=== PATIENT | female | born 2000 | race Caucasian/White ===

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

== ENCOUNTER 2021-01-27 00:08 | Outpatient (CLI) | payer MEDICAID | END 2021-01-27 00:09 | disposition critical access hospital (66) | LOC: EMS 00:08 | DX: R44.9 Unspecified symptoms and signs involving general sensations and perceptions (principal) | CPT/HCPCS: A0425; A0429 ==

== ENCOUNTER 2021-01-27 00:31 | Emergency (ER) | payer MEDICAID ==
[2021-01-27] MEDS ORDERED: ONDANSETRON ODT 4 MG TABLET TL STA (01:21)
[2021-01-27] MEDS ORDERED: LORazepam 1 MG TABLET PO STA (01:22)
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
[2021-01-27 04:48] VITALS: BP 146/99
== END 2021-01-27 02:07 | disposition home or self-care (01) ==
LOC: EDUNIT# → ED 00:31
DX: F43.0 Acute stress reaction (principal)
CPT/HCPCS: 99283; J8499; Q0162

== ENCOUNTER 2021-03-31 17:04 | Outpatient (CLI) | payer MEDICAID | END 2021-03-31 17:05 | disposition critical access hospital (66) | LOC: EMS 17:04 | DX: S20.313A Abrasion of bilateral front wall of thorax, initial encounter (principal); R10.817 Generalized abdominal tenderness; V57.6XXA Passenger in pick-up truck or van injured in collision with fixed or stationary object in traffic accident, initial encounter; Y92.410 Unspecified street and highway as the place of occurrence of the external cause | CPT/HCPCS: A0425; A0429; A0999 ==

== ENCOUNTER 2021-03-31 17:15 | Emergency (ER) | payer MEDICAID ==
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
[2021-03-31 17:32] LABS: BASOPHILS # (AUTO) 0.1 10^3/uL (0.0-0.1); BASOPHILS % (AUTO) 0.3 %; EOSINOPHILS # (AUTO) 0.1 10^3/uL (0.0-0.7); EOSINOPHILS % (AUTO) 0.4 %; HCT - HEMATOCRIT 45.1 % (37.0-47.0); HGB - HEMOGLOBIN 14.8 g/dL (12.0-16.0); LYMPHOCYTES # (AUTO) 2.9 10^3/uL (1.5-3.5); MEAN CORPUSCULAR HEMOGLOBIN 28.7 pg (27.0-31.0); MEAN CORPUSCULAR HGB CONC 32.8 g/dL (32.0-36.0); MEAN CORPUSCULAR VOLUME 87.4 fL (81.0-99.0); MONOCYTES # (AUTO) 0.8 10^3/uL (0.0-1.0); MONOCYTES % (AUTO) 5.1 %; NEUTROPHILS # (AUTO) 11.4 10^3/uL (1.5-6.6); NEUTROPHILS % (AUTO) 74.6 %; PLT - PLATELET COUNT 347 10^3/uL (130-450); RED BLOOD COUNT 5.16 10^6/uL (4.20-5.40); RED CELL DISTRIBUTION WIDTH 13.4 % (12.0-15.0); WHITE BLOOD COUNT 15.2 x10^3/uL (4.8-10.8)
[2021-03-31 17:38] LABS: INR 1.3 (0.8-1.2); PT - PROTHROMBIN TIME 14.1 secs (9.9-12.6)
[2021-03-31 17:42] LABS: ALBUMIN 4.5 g/dL (3.2-5.5); ALBUMIN/GLOBULIN RATIO 1.1 (1.0-2.2); ALKALINE PHOSPHATASE 93 IU/L (42-121); ALT ALANINE AMINOTRANSFERASE 21 IU/L (10-60); AST ASPARTATE AMINOTRANSFERASE 22 IU/L (10-42); BILIRUBIN,TOTAL 0.4 mg/dL (0.2-1.0); BUN - BLOOD UREA NITROGEN 18 mg/dL (6-20); CALCIUM 9.8 mg/dL (8.5-10.3); CARBON DIOXIDE - CO2 25 mmol/L (21-32); CHLORIDE 105 mmol/L (101-111); CREATININE 0.8 mg/dL (0.4-1.0); ETOH - ETHANOL < 5.0 mg/dL; GFR - MDRD 91 (>89); GLUCOSE 104 mg/dL (70-100); LIPASE 29 U/L (22-51); POTASSIUM 4.2 mmol/L (3.5-5.0); SODIUM 140 mmol/L (135-145); TOTAL PROTEIN 8.7 g/dL (6.7-8.2)
[2021-03-31 17:45] LABS: PARTIAL THROMBOPLASTIN TIME 33.2 secs (24.9-33.3)
[2021-03-31] MEDS ORDERED: IOPAMIDOL-300 100 ML VIAL ONE (18:22)
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
[2021-03-31] MEDS ORDERED: IOPAMIDOL-300 100 ML VIAL IVP ONE (18:59)
[2021-03-31 19:20] VITALS: BP 142/91
== END 2021-03-31 19:20 | disposition home or self-care (01) ==
LOC: EDUNIT# → ED 17:15
DX: S20.319A Abrasion of unspecified front wall of thorax, initial encounter (principal); V47.6XXA Car passenger injured in collision with fixed or stationary object in traffic accident, initial encounter; Y93.89 Activity, other specified; Y92.410 Unspecified street and highway as the place of occurrence of the external cause
CPT/HCPCS: 36415; 70450; 71260; 72125; 74177; 80053; 80320; 83690; 85025; 85610; 85730; 99282; 99284; Q9967

== ENCOUNTER 2021-11-18 18:35 | Emergency (ER) | payer MEDICAID ==
[2021-11-18] MEDS ORDERED: SODIUM CHLORIDE 0.9% 1,000 ML IV STA (18:46)
[2021-11-18] MEDS ORDERED: ONDANSETRON 4 MG/2 ML VIAL IVP STA (18:46)
[2021-11-18] MEDS ORDERED: KETOROLAC 15 MG/ML VIAL IVP STA (18:46)
[2021-11-18] MEDS ORDERED: MOLNUPIRAVIR PREPACK PO STA (19:06)
--- NOTE | 2021-11-18 19:07 | ED Physician Documentation ---
History of Present Illness - Stated complaint Stated Complaint: C+,LIGHTHEADED,SHAKING - Chief complaint Chief Complaint: General - History obtained from History obtained from: Patient - Additonal information Additional information: 21-year-old woman not vaccinated against COVID became sick about 3 days ago after an exposure at work, she works at [employer]. She has a history of cerebral palsy and morbid obesity. No chance of . She is been feeling weak and lightheaded with some nausea but no vomiting. Review of Systems Constitutional: reports: Fever, Chills, Myalgias, Fatigue Nose: reports: Rhinorrhea / runny nose Throat: denies: Sore throat Respiratory: denies: Dyspnea, Cough PD PAST MEDICAL HISTORY - Past Medical History Cardiovascular: None Respiratory: None Neuro: Other Endocrine/Autoimmune: None Psych: None Musculoskeletal: None - Past Surgical History Past Surgical History: Yes - Present Medications Home Medications: Ambulatory Orders Medication Instructions Recorded Confirmed Ibuprofen [Motrin] 800 mg PO Q8H PRN #14 tablet 11/18/21 Ondansetron Odt [Zofran] 4 mg TL Q6H PRN #10 tablet 11/18/21 - Allergies Allergies/Adverse Reactions: Allergies Allergy/AdvReac Type Severity Reaction Status Date / Time No Known Drug Allergies Allergy Verified 11/18/21 18:43 - Social History Does the pt smoke?: No Smoking Status: Never smoker Does the pt drink ETOH?: No Does the pt have substance abuse?: No - Immunizations Immunizations are current?: Yes - POLST Patient has POLST: No PD ED PE NORMAL - Vitals Vital signs reviewed: Yes (Mild resting tachycardia, hypertension) - General General: Alert and oriented X 3, No acute distress - Respiratory Respiratory: No respiratory distress - Derm Derm: Normal color, Warm and dry - Neuro Neuro: Alert and oriented X 3, Normal speech Results - Vitals Vitals: Vital Signs - 24 hr 11/18/21 11/18/21 18:39 19:20 Temperature 36.9 C Heart Rate 110 H 84 Respiratory 20 20 Rate Blood Pressure 179/118 H 146/86 H O2 Saturation 97 99 Oxygen O2 Source Room air PD MEDICAL DECISION MAKING - ED course ED course: 21-year-old woman presents for symptomatic COVID. After the administration of IV fluids, Toradol, and Zofran she was feeling much better. We discussed oral antivirals, given her health problems and unvaccinated status she would like to go ahead with it and a molnupiravir prepack was ordered. Departure - Departure Disposition: 01 Home, Self Care Clinical Impression: COVID-19 Condition: Good Record reviewed to determine appropriate education?: Yes Instructions: ED Viral Syndrome Prescriptions: Ibuprofen [Motrin] 800 mg PO Q8H PRN #14 tablet PRN Reason: PAIN &/OR FEVER Ondansetron Odt [Zofran] 4 mg TL Q6H PRN #10 tablet PRN Reason: Nausea / Vomiting Comments: Take the antivirals as instructed. Return for new or worsening symptoms. I sent your prescription to [facility] in [place]. Continue to quarantine, likely for at least another 8 days.
[2021-11-18 20:51] VITALS: BP 110/72
== END 2021-11-18 20:51 | disposition home or self-care (01) ==
LOC: ED 18:35
DX: U07.1 COVID-19 (principal); Z28.310 Unvaccinated for COVID-19
CPT/HCPCS: 96374; 96375; 99283; J3490

== ENCOUNTER 2022-02-07 08:00 | Outpatient (CLI) | payer MEDICAID ==
[2022-02-07 23:46] LABS: CHLAMYDIA TRACHOMATIS DNA NEGATIVE (NEGATIVE); NEISSERIA GONORRHOEAE DNA NEGATIVE (NEGATIVE); TRICHOMONAS VAGINALIS DNA NEGATIVE (NEGATIVE)
== END 2022-02-07 23:59 | disposition home or self-care (01) ==
LOC: LAB.WC 08:00
PROVIDERS: ATTEND Obstetrics & Gynecology
DX: Z11.3 Encounter for screening for infections with a predominantly sexual mode of transmission (principal)
CPT/HCPCS: 87491; 87591; 87661

== ENCOUNTER 2022-02-07 21:15 | Emergency (ER) | payer MEDICAID ==
[2022-02-07 22:16] VITALS: BP 134/97
== END 2022-02-08 00:10 | disposition left against medical advice (07) ==
LOC: ED 21:15
DX: Z53.21 Procedure and treatment not carried out due to patient leaving prior to being seen by health care provider (principal)
CPT/HCPCS: 87491; 87591; 87661

== ENCOUNTER 2022-03-09 22:19 | Emergency (ER) | payer MEDICAID ==
--- NOTE | 2022-03-10 00:19 | ED Physician Documentation ---
PD HPI HEADACHE - Stated complaint Stated Complaint: MIGRAINE - History obtained from History obtained from: Patient - History of Present Illness Timing - onset: How many months ago (1) Timing - details: Gradual onset, Intermittant Pain level now: 6 Worst headache ever?: No: Worst headache ever? Location: Right Quality: Throbbing, Aching Associated symptoms: Nausea, Vomiting. No: Fever Improved by: Nothing Worsened by: Other (no exacerbating factors) Contributing factors: No: Anticoagulated, Possible carbon monoxide, Hypertension Similar symptoms before: No diagnosis Recently seen: Emergency Dept (T+R 02/09 ED for same) - Additional information Additional information: c/o right-sided headache, episodic x 1 month. She was evaluated at [facility] ED 02/09 for same, CT head and MRI performed, with MRI showing "bilateral deep white matter changes...greater than expected for patient age. Consider possible demyelinating disorder such as multiple sclerosis. Alternatively, consider areas of chronic ischemia secondary to migraines" (per radiologist's interpretation; the results of these studies were requested from , faxed to [facility] ED and reviewed by me). Patient says she has not had adequate relief with tyenol, ibuprofen. Had been getting some relief with prescribed toradol but this was ineffective today. Has not been seen in outpatient setting for follow up yet. Denies injury. Has not had similar headaches prior to one month ago Review of Systems Constitutional: reports: Reviewed and negative Eyes: reports: Reviewed and negative : denies: Incontinent, Now EGA Musculoskeletal: reports: Reviewed and negative Neurologic: reports: Headache. denies: Generalized weakness, Focal weakness, Numbness, Confused, Altered mental status, Head injury PD PAST MEDICAL HISTORY - Past Medical History Cardiovascular: None Respiratory: None Neuro: Other Endocrine/Autoimmune: None Psych: None Musculoskeletal: None - Past Surgical History Past Surgical History: Yes - Present Medications Home Medications: Ambulatory Orders Medication Instructions Recorded Confirmed Ibuprofen [Motrin] 800 mg PO Q8H PRN #14 tablet 11/18/21 Ondansetron Odt [Zofran] 4 mg TL Q6H PRN #10 tablet 11/18/21 Promethazine [Phenergan] 25 mg PO Q6H PRN #10 tab 03/10/22 Sumatriptan Succinate [Imitrex] 50 mg PO DAILY PRN #20 tablet 03/10/22 - Allergies Allergies/Adverse Reactions: Allergies Allergy/AdvReac Type Severity Reaction Status Date / Time No Known Drug Allergies Allergy Verified 02/07/22 22:16 - Social History Does the pt smoke?: No Smoking Status: Never smoker Does the pt drink ETOH?: No Does the pt have substance abuse?: No - Immunizations Immunizations are current?: Yes - POLST Patient has POLST: No PD ED PE NORMAL - Vitals Vital signs reviewed: Yes - General General: Alert and oriented X 3, No acute distress, Well developed/nourished - HEENT HEENT: PERRL, EOMI - Cardiac Cardiac: RRR, No murmur - Respiratory Respiratory: No respiratory distress, Clear bilaterally - Neuro Neuro: Alert and oriented X 3, 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 Given dose of imitrex in ED, rx for imitrex and phenergan and instructed to f/u with PMD for neurology referral. We discussed the results of the studies that were performed at [facility], and she is aware of the findings and that differential diagnosis includes MS. Departure - Departure Disposition: 01 Home, Self Care Clinical Impression: Headache Qualifiers: Headache type: unspecified Headache chronicity pattern: acute headache Intractability: not intractable Qualified Code(s): R51.9 - Headache, unspecified Condition: Good Instructions: ED Cephalgia Unspecified Prescriptions: Sumatriptan Succinate [Imitrex] 50 mg PO DAILY PRN #20 tablet PRN Reason: Headache Promethazine [Phenergan] 25 mg PO Q6H PRN #10 tab PRN Reason: Nausea / Vomiting Comments: You were given a dose of imitrex in the ER, which often will help with migraine headaches. As we discussed, there are other possible causes of your headache besides migraine headache, but it is reasonable to try this migraine-specific medication to see if that provides relief of your symptoms. A prescription for imitrex (generic is sumatriptan), as well as phenergan (anti- nauseant) have been electronically submitted to [facility] pharmacy in [place]. You can take tylenol, ibuprofen or aleve in addition to these medications if symptoms are not relieved with the imitrex. Follow up with your primary care provider for reevaluation and likely referral to a neurologist Discharge Date/Time: 03/10/22 01:11
[2022-03-10] MEDS ORDERED: SUMAtriptan 25 MG TABLET PO STA (00:53)
[2022-03-10 01:11] VITALS: BP 110/94
== END 2022-03-10 01:11 | disposition home or self-care (01) ==
LOC: ED 22:19
DX: R51.9 Headache, unspecified (principal)
CPT/HCPCS: 99282; 99284; A9270

== ENCOUNTER 2022-03-14 16:13 | Emergency (ER) | payer MEDICAID ==
--- OUTSIDE RECORDS SUMMARY | 2022-03-14 16:19 | EXTERNAL MEDICAL SUMMARY RPT | Continuity of Care Document ---
:2000 Author Organization [facility] Address [address] [place] [address] Phone Allergies and Intolerances date description facility type (no date) No Known Drug Allergies [facility] (unkn own) Encounters No information. Functional Status No information. Immunizations No information. Medications No information. Problems No information. Procedures No information. Results/Labs test date author facility value unit interpret ation Result panel 1 (unknown) (no date) (unknown) (unknown) (no value) (units (un known) unknown) (unknown) (no date) (unknown) (unknown) [address]units ([address] nown) [address] unknown) (unknown) (no date) (unknown) (unknown) [place], [place] (units (unknown) [id number] unknown) (unknown) (no date) (unknown) (unknown) CT Scan Report (units (unknown) unknown) (unknown) (no date) (unknown) (unknown) [facility] unknown) (unknown) (no date) (unknown) (unknown) Signed (units (unkn own) unknown) (unknown) (no date) (unknown) (unknown) (no value) (units (un known) unknown) (unknown) (no date) (unknown) (unknown) 02/09/22 (units (unkn own) unknown) (unknown) (no date) (unknown) (unknown) Approved by: (units ( unknown) [place] unknown) Patience Kruger on 02/09/2022 at 14:50 (unknown) (no date) (unknown) (unknown) Brain: No (units (un known) midline shift. unknown) Tiny bilateral deep white matter densities most (unknown) (no date) (unknown) (unknown) COMPARISON: (units (u nknown) None. unknown) (unknown) (no date) (unknown) (unknown) CSF spaces: (units (u nknown) Basal cisterns unknown) are patent. No extra-axial fluid collections. (unknown) (no date) (unknown) (unknown) Comment: (units (unkn own) Brain MRI with unknown) without contrast may be helpful. (unknown) (no date) (unknown) (unknown) Dictated by: (units ( unknown) [place] unknown) Patience Kruger on 02/09/2022 at 14:45 (unknown) (no date) (unknown) (unknown) FINDINGS: (units (unk nown) unknown) (unknown) (no date) (unknown) (unknown) IMPRESSION: (units (u nknown) Question unknown) diffuse process involving the deep white matter (unknown) (no date) (unknown) (unknown) INDICATIONS: (units ( unknown) new onset unknown) headahe (unknown) (no date) (unknown) (unknown) Image quality: (units (unknown) Excellent. unknown) (unknown) (no date) (unknown) (unknown) Noncontrast (units (u nknown) 4.5 mm thick unknown) angled axial sections acquired from the foramen magnum (unknown) (no date) (unknown) (unknown) Sinuses: (units (unkn own) Visualized unknown) sinuses and mastoids are clear. (unknown) (no date) (unknown) (unknown) Skull and (units (unk nown) face: unknown) Calvarium and visualized facial bones are intact, without (unknown) (no date) (unknown) (unknown) TECHNIQUE: (units (un known) unknown) (unknown) (no date) (unknown) (unknown) are normal in (units (unknown) size and shape. unknown) (unknown) (no date) (unknown) (unknown) hypodensities. (units (unknown) unknown) (unknown) (no date) (unknown) (unknown) is not (units (unkn own) definite. Also unknown) present are probable bilateral deep white matter (unknown) (no date) (unknown) (unknown) lesions. (units (unkn own) unknown) (unknown) (no date) (unknown) (unknown) represent (units (unk nown) small unknown) calcifications. Question increased bilateral deep white matter (unknown) (no date) (unknown) (unknown) size. (units (unkn own) unknown) (unknown) (no date) (unknown) (unknown) vertex, with (units ( unknown) coronal and unknown) sagittal reformats. For radiation dose reduction, the (unknown) (no date) (unknown) (unknown) was used: (units (unk nown) automated unknown) exposure control, adjustment of mA and/or kV according to (unknown) (no date) (unknown) (unknown) [id number] (units (unkn own) unknown) (unknown) (no date) (unknown) (unknown) Accession (units (unk nown) Number: unknown) [id number] (unknown) (no date) (unknown) (unknown) Age/Sex: 21 / (units (unknown) F Date of unknown) Service: (unknown) (no date) (unknown) (unknown) : (units (unkn own) 2000 unknown) Acct:[id number] (unknown) (no date) (unknown) (unknown) Loc: ED (units (unkn own) unknown) (unknown) (no date) (unknown) (unknown) Ordering (units (unkn own) Provider: unknown) Patricia Johnson D.O. (unknown) (no date) (unknown) (unknown) PROCEDURE: CT (units (unknown) HEAD/BRAIN WO unknown) CON (unknown) (no date) (unknown) (unknown) Patient: (units (unkn own) ShahabJessy unknown) MR#: [id number] (unknown) (no date) (unknown) (unknown) Procedure: CT (units (unknown) head/brain wo unknown) con (unknown) (no date) (unknown) (unknown) Ventricles (units (un known) unknown) (unknown) (no date) (unknown) (unknown) bilaterally. (units ( unknown) This unknown) (unknown) (no date) (unknown) (unknown) calcifications (units (unknown) . unknown) (unknown) (no date) (unknown) (unknown) following (units (unk nown) unknown) (unknown) (no date) (unknown) (unknown) likely (units (unkn own) unknown) (unknown) (no date) (unknown) (unknown) patient (units (unkn own) unknown) (unknown) (no date) (unknown) (unknown) suspicious (units (un known) unknown) (unknown) (no date) (unknown) (unknown) to the (units (unkn own) unknown) Result panel 2 (unknown) (no (unknown) (unknown) (no value) (units (unk nown) date) unknown) (unknown) (no (unknown) (unknown) Date of Service: (units (unknown) date) 02/09/22 unknown) (unknown) (no (unknown) (unknown) (no value) (units (unk nown) date) unknown) (unknown) (no (unknown) (unknown) Allergies (units (unkn own) date) unknown) (unknown) (no (unknown) (unknown) ED Orders (units (unkn own) date) unknown) (unknown) (no (unknown) (unknown) Emergency Report (units (unknown) date) unknown) (unknown) (no (unknown) (unknown) [facility] (units (unknown) date) [address] unknown) [place] [address] (unknown) (no (unknown) (unknown) Stop: 02/09/22 (units (unknown) date) 15:23 unknown) (unknown) (no (unknown) (unknown) Vital Signs - 8 (units (unknown) date) hr unknown) (unknown) (no (unknown) (unknown) (no value) (units (unk nown) date) unknown) (unknown) (no (unknown) (unknown) 02/09/22 (units (unkno wn) date) unknown) (unknown) (no (unknown) (unknown) [id number] (units (unkno wn) date) unknown) (unknown) (no (unknown) (unknown) 02/09/22 15:22 (units (unknown) date) unknown) (unknown) (no (unknown) (unknown) 13:01 (units (unkno wn) date) unknown) (unknown) (no (unknown) (unknown) 8 point review of (units (unknown) date) systems is unknown) negative except for those stated above and HPI (unknown) (no (unknown) (unknown) ABDOMEN: Soft, (units (unknown) date) nontender. unknown) Normoactive bowel sounds all 4 quadrants. No (unknown) (no (unknown) (unknown) Acetaminophen (units ( unknown) date) (Acetaminophen 325 unknown) Mg Tablet) 975 mg PO NOW ONE (unknown) (no (unknown) (unknown) Age/Sex: 21 F (units (unknown) date) unknown) (unknown) (no (unknown) (unknown) Allergy/AdvReac (units (unknown) date) Type Severity unknown) Reaction Status Date / Time (unknown) (no (unknown) (unknown) Blood Pressure (units (unknown) date) 127/73 02/09/22 unknown) 13:01 (unknown) (no (unknown) (unknown) Blood Pressure (units (unknown) date) [address] unknown) (unknown) (no (unknown) (unknown) CARDIOVASCULAR: (units (unknown) date) Denies chest pain, unknown) palpitations (unknown) (no (unknown) (unknown) CARDIOVASCULAR: (units (unknown) date) Regular rate and unknown) rhythm without murmurs, rubs or gallops. (unknown) (no (unknown) (unknown) COVID19 -Nasal (units (unknown) date) RAPID/Pre-Proc unknown) Stat (unknown) (no (unknown) (unknown) CT head/brain wo (units (unknown) date) con Stat unknown) (unknown) (no (unknown) (unknown) Chief Complaint: (units (unknown) date) Headache unknown) (unknown) (no (unknown) (unknown) Course (units (unkno wn) date) unknown) (unknown) (no (unknown) (unknown) : 2000 (units (unknown) date) Acct:[id number] unknown) (unknown) (no (unknown) (unknown) Discontinued (units (u nknown) date) Medications unknown) (unknown) (no (unknown) (unknown) ER Physician: (units ( unknown) date) Patricia Johnson unknown) D.O. (unknown) (no (unknown) (unknown) EXTREMITIES: (units (u nknown) date) Normal range of unknown) motion, no clubbing or edema. Neurovascularly (unknown) (no (unknown) (unknown) Exam (units (unkno wn) date) unknown) (unknown) (no (unknown) (unknown) GASTROINTESTINAL: (units (unknown) date) Denies nausea, unknown) vomiting (unknown) (no (unknown) (unknown) GENERAL: Patient (units (unknown) date) is a unknown) well-appearing young 21-year-old female in no acute (unknown) (no (unknown) (unknown) GENERAL: Denies (units (unknown) date) chills,fever unknown) (unknown) (no (unknown) (unknown) General (units (unkno wn) date) unknown) (unknown) (no (unknown) (unknown) HEENT: Denies (units ( unknown) date) throat pain unknown) (unknown) (no (unknown) (unknown) HEENT: Head (units (un known) date) atraumatic,EOMI, unknown) pupils reactive, face symmetric, moist mucous (unknown) (no (unknown) (unknown) HPI - Headache (units (unknown) date) unknown) (unknown) (no (unknown) (unknown) HPI Narrative: (units (unknown) date) unknown) (unknown) (no (unknown) (unknown) History of (units (unk nown) date) Present Illness unknown) (unknown) (no (unknown) (unknown) Initial Vital (units ( unknown) date) Signs unknown) (unknown) (no (unknown) (unknown) Initial Vital (units ( unknown) date) Signs: unknown) (unknown) (no (unknown) (unknown) MDM - Headache (units (unknown) date) unknown) (unknown) (no (unknown) (unknown) MDM Narrative (units ( unknown) date) unknown) (unknown) (no (unknown) (unknown) MUSCULOSKELETAL: (units (unknown) date) Denies extremity unknown) pain, injury (unknown) (no (unknown) (unknown) Medical decision (units (unknown) date) making narrative: unknown) (unknown) (no (unknown) (unknown) Mode of arrival: (units (unknown) date) Ambulatory unknown) (unknown) (no (unknown) (unknown) NECK: Supple no (units (unknown) date) vertebral unknown) tenderness or step-off (unknown) (no (unknown) (unknown) NEUROLOGIC: + (units ( unknown) date) headache, see HPI unknown) (unknown) (no (unknown) (unknown) NEUROLOGICAL: (units (u nknown) date) Alert and oriented unknown) x4.Normal gait and speech. Card Room Manager strength equal (unknown) (no (unknown) (unknown) Narrative: (units (unk nown) date) unknown) (unknown) (no (unknown) (unknown) No Known Drug (units ( unknown) date) Allergies Allergy unknown) Verified 02/09/22 13:07 (unknown) (no (unknown) (unknown) Ordered: (units (unkno wn) date) unknown) (unknown) (no (unknown) (unknown) Orders (units (unkno wn) date) unknown) (unknown) (no (unknown) (unknown) Oxygen Delivery (units (unknown) date) Method 02/09/22 unknown) 13:01 (unknown) (no (unknown) (unknown) Oxygen Delivery (units (unknown) date) Method Room Air unknown) (unknown) (no (unknown) (unknown) Patient History (units (unknown) date) unknown) (unknown) (no (unknown) (unknown) Patient is a (units (u nknown) date) healthy unknown) 21-year-old female who presents with headache ongoing for (unknown) (no (unknown) (unknown) Patient overall (units (unknown) date) appears well. No unknown) sign of meningitis. She does not seem to be (unknown) (no (unknown) (unknown) Patient: (units (unkno wn) date) ShahabJessy unknown) MR#: [id number] (unknown) (no (unknown) (unknown) Pulse Oximetry (units (unknown) date) 95 02/09/22 unknown) 13:01 (unknown) (no (unknown) (unknown) Pulse Oximetry 95 (units (unknown) date) unknown) (unknown) (no (unknown) (unknown) Pulse Rate 94 H (units (unknown) date) 02/09/22 13:01 unknown) (unknown) (no (unknown) (unknown) Pulse Rate 94 H (units (unknown) date) unknown) (unknown) (no (unknown) (unknown) RESPIRATORY: (units (u nknown) date) Breath sounds unknown) equal bilaterally, no wheezes rales or rhonchi. (unknown) (no (unknown) (unknown) RESPIRATORY: (units (u nknown) date) Denies dyspnea, unknown) cough, wheezing (unknown) (no (unknown) (unknown) Related Data (units (u nknown) date) unknown) (unknown) (no (unknown) (unknown) Respiratory Rate (units (unknown) date) 18 02/09/22 unknown) 13:01 (unknown) (no (unknown) (unknown) Respiratory Rate (units (unknown) date) 18 unknown) (unknown) (no (unknown) (unknown) Review of Systems (units (unknown) date) unknown) (unknown) (no (unknown) (unknown) SKIN: No rash, no (units (unknown) date) laceration, no unknown) pruritus (unknown) (no (unknown) (unknown) SKIN: Warm, dry, (units (unknown) date) no laceration, no unknown) petechiae, no rashes or lesions. (unknown) (no (unknown) (unknown) Signed By: (units (unk nown) date) unknown) (unknown) (no (unknown) (unknown) Smoking Status: (units (unknown) date) Never smoker unknown) (unknown) (no (unknown) (unknown) Smoking Status: (units (unknown) date) Never smoker unknown) (unknown) (no (unknown) (unknown) Social History (units (unknown) date) (Reviewed 02/09/22 unknown) @ 15:27 by Patricia Johnson DO) (unknown) (no (unknown) (unknown) Stated Complaint: (units (unknown) date) headaches/neck unknown) pain (unknown) (no (unknown) (unknown) Substance Use (units ( unknown) date) Type: does not use unknown) (unknown) (no (unknown) (unknown) Temperature 97.8 (units (unknown) date) F 02/09/22 13:01 unknown) (unknown) (no (unknown) (unknown) Temperature 97.8 (units (unknown) date) F unknown) (unknown) (no (unknown) (unknown) Time Seen by (units (u nknown) date) Provider: 02/09/22 unknown) 14:43 (unknown) (no (unknown) (unknown) Vital Signs (units (un known) date) unknown) (unknown) (no (unknown) (unknown) Vital signs: (units (u nknown) date) unknown) (unknown) (no (unknown) (unknown) bilaterally (units (un known) date) unknown) (unknown) (no (unknown) (unknown) clock she says it (units (unknown) date) does help when it unknown) wears off her headache comes back. She (unknown) (no (unknown) (unknown) denies any nausea (units (unknown) date) or vomiting. She unknown) is not sensitive to light. She has no (unknown) (no (unknown) (unknown) distress (units (unkno wn) date) unknown) (unknown) (no (unknown) (unknown) guarding or (units (un known) date) rebound. unknown) (unknown) (no (unknown) (unknown) in severe pain. (units (unknown) date) However she does unknown) not typically get headaches. She had a home (unknown) (no (unknown) (unknown) intact (units (unkno wn) date) unknown) (unknown) (no (unknown) (unknown) membranes (units (unkn own) date) unknown) (unknown) (no (unknown) (unknown) negative COVID (units (unknown) date) test week ago. unknown) (unknown) (no (unknown) (unknown) numbness tingling (units (unknown) date) or weakness. He unknown) has really gotten headaches like this in the (unknown) (no (unknown) (unknown) pain. But she (units (unknown) date) denies any fever unknown) or chills. She is able to move her neck is now (unknown) (no (unknown) (unknown) past. She was (units ( unknown) date) seen at a walk-in unknown) clinic who told her she was just dehydrated she (unknown) (no (unknown) (unknown) says that she has (units (unknown) date) been drinking lots unknown) of water she is not dizzy or lightheaded (unknown) (no (unknown) (unknown) she has no chest (units (unknown) date) pain palpitations. unknown) She also has been complaining of some head (unknown) (no (unknown) (unknown) the last 1 week. (units (unknown) date) She says she has unknown) been taking ibuprofen pretty much around the (unknown) (no (unknown) (unknown) without any sort (units (unknown) date) of difficulty. unknown) Result panel 3 (unknown) (no date) (unknown) (unknown) Negative (units (unkn own) unknown) Result panel 4 (unknown) (no (unknown) (unknown) (no value) (units (unk nown) date) unknown) (unknown) (no (unknown) (unknown) [address] [place] [address] (units (unknown) date) unknown) (unknown) (no (unknown) (unknown) [place] (units ( unknown) date) [id number] unknown) (unknown) (no (unknown) (unknown) [facility] (units (unknown) date) unknown) (unknown) (no (unknown) (unknown) Magnetic (units (unkno wn) date) Resonance Report unknown) (unknown) (no (unknown) (unknown) Signed (units (unkno wn) date) unknown) (unknown) (no (unknown) (unknown) (no value) (units (unk nown) date) unknown) (unknown) (no (unknown) (unknown) 02/09/22 (units (unkno wn) date) unknown) (unknown) (no (unknown) (unknown) Alternatively, (units (unknown) date) consider areas of unknown) chronic ischemia secondary to migraines. (unknown) (no (unknown) (unknown) Approved by: (units (u nknown) date) shanna Singh) Patience on 02/09/2022 at 16:11 (unknown) (no (unknown) (unknown) Brain: No (units (unk nown) date) midline shift. No unknown) intracranial bleeds or masses. There are (unknown) (no (unknown) (unknown) COMPARISON: (units (un known) date) [facility], unknown) CT, CT HEAD/BRAIN WO CON, 02/09/2022, 15:29. (unknown) (no (unknown) (unknown) CSF Spaces: (units (un known) date) Basal cisterns are unknown) patent. No extra-axial fluid collections. (unknown) (no (unknown) (unknown) Dictated by: (units (u nknown) date) shanna Singh) Patience on 02/09/2022 at 16:03 (unknown) (no (unknown) (unknown) FINDINGS: (units (unkn own) date) unknown) (unknown) (no (unknown) (unknown) IMPRESSION: (units (un known) date) Bilateral deep unknown) white matter changes are greater than expected for (unknown) (no (unknown) (unknown) INDICATIONS: (units (u nknown) date) Calcification in unknown) deep white matter (unknown) (no (unknown) (unknown) Image quality: (units (unknown) date) Excellent. unknown) (unknown) (no (unknown) (unknown) Noncontrast axial (units (unknown) date) T1 spin echo, unknown) axial T2 fast spin echo, sagittal and axial (unknown) (no (unknown) (unknown) Sinuses: Sinuses (units (unknown) date) and mastoids unknown) appear clear. (unknown) (no (unknown) (unknown) Skull and face: (units (unknown) date) Calvarial marrow unknown) is normal in signal. Orbits appear normal. (unknown) (no (unknown) (unknown) T1 spin echo with (units (unknown) date) fat saturation unknown) through the brain. (unknown) (no (unknown) (unknown) TECHNIQUE: (units (unk nown) date) unknown) (unknown) (no (unknown) (unknown) abnormalities (units ( unknown) date) involving the unknown) corpus callosum. No abnormal intracranial (unknown) (no (unknown) (unknown) age, and have an (units (unknown) date) appearance where unknown) they 10 to radiate towards the lateral (unknown) (no (unknown) (unknown) age. Consider (units (unknown) date) possible unknown) demyelinating disorder such as multiple sclerosis. (unknown) (no (unknown) (unknown) appearance is (units ( unknown) date) nonspecific, but unknown) may potentially represent presence a (unknown) (no (unknown) (unknown) are normal in (units ( unknown) date) size and shape. unknown) (unknown) (no (unknown) (unknown) brain. After the (units (unknown) date) administration of unknown) contrast, axial and coronal and sagittal 3D (unknown) (no (unknown) (unknown) brainstem appears (units (unknown) date) normal. unknown) Diffusion-weighted images demonstrate no acute (unknown) (no (unknown) (unknown) coronal T2 fast (units (unknown) date) spin echo, axial unknown) gradient echo, axial diffusion and ADC through (unknown) (no (unknown) (unknown) disorder such as (units (unknown) date) multiple unknown) sclerosis. Alternatively, this may potentially (unknown) (no (unknown) (unknown) insults. No (units (u nknown) date) chronic ischemic unknown) insults. Normal intravascular flow voids are (unknown) (no (unknown) (unknown) periventricular (units (unknown) date) deep white matter unknown) changes which are greater than expected for (unknown) (no (unknown) (unknown) vessel ischemic (units (unknown) date) change secondary unknown) to migraines. Of note, there are no signal (unknown) (no (unknown) (unknown) [id number] (units (unkno wn) date) unknown) (unknown) (no (unknown) (unknown) Accession Number: (units (unknown) date) [id number] unknown) (unknown) (no (unknown) (unknown) Age/Sex: 21 / F (units (unknown) date) Date of Service: unknown) (unknown) (no (unknown) (unknown) : 2000 (units (unknown) date) Acct:[id number] unknown) (unknown) (no (unknown) (unknown) FLAIR, (units (unkno wn) date) unknown) (unknown) (no (unknown) (unknown) Loc: ED (units (unkno wn) date) unknown) (unknown) (no (unknown) (unknown) Ordering (units (unkno wn) date) Provider: unknown) Patricia Johnson D.O. (unknown) (no (unknown) (unknown) PROCEDURE: MR (units (unknown) date) HEAD/BRAIN WO/W unknown) CON (unknown) (no (unknown) (unknown) Patient: (units (unkno wn) date) Camila Gudinoasia unknown) MR#: [id number] (unknown) (no (unknown) (unknown) Procedure: MR (units ( unknown) date) head/brain wo/w unknown) con (unknown) (no (unknown) (unknown) VIBE or (units (unkno wn) date) unknown) (unknown) (no (unknown) (unknown) Ventricles (units (unk nown) date) unknown) (unknown) (no (unknown) (unknown) bilateral (units (unkn own) date) unknown) (unknown) (no (unknown) (unknown) demyelinating (units ( unknown) date) unknown) (unknown) (no (unknown) (unknown) enhancement. The (units (unknown) date) unknown) (unknown) (no (unknown) (unknown) ischemic (units (unkno wn) date) unknown) (unknown) (no (unknown) (unknown) patient (units (unkno wn) date) unknown) (unknown) (no (unknown) (unknown) present. (units (unkno wn) date) unknown) (unknown) (no (unknown) (unknown) represent small (units (unknown) date) unknown) (unknown) (no (unknown) (unknown) the (units (unkno wn) date) unknown) (unknown) (no (unknown) (unknown) ventricles. The (units (unknown) date) unknown) Result panel 5 (unknown) (no date) (unknown) (unknown) 0.6 % (unkn own) (unknown) (no date) (unknown) (unknown) 0.7 % (unkn own) (unknown) (no date) (unknown) (unknown) 10.8 X10 3/uL (unkn own) (unknown) (no date) (unknown) (unknown) 100 /uL (unkn own) (unknown) (no date) (unknown) (unknown) 100 /uL (unkn own) (unknown) (no date) (unknown) (unknown) 14.2 % (unkn own) (unknown) (no date) (unknown) (unknown) 15.4 g/dL (unkn own) (unknown) (no date) (unknown) (unknown) 27.6 % (unkn own) (unknown) (no date) (unknown) (unknown) 29.1 PG (unkn own) (unknown) (no date) (unknown) (unknown) 3000 /uL (unkn own) (unknown) (no date) (unknown) (unknown) 34.0 % (unkn own) (unknown) (no date) (unknown) (unknown) 347 X10 3/uL (unkn own) (unknown) (no date) (unknown) (unknown) 45.3 % (unkn own) (unknown) (no date) (unknown) (unknown) 5.30 X10 6/uL (unkn own) (unknown) (no date) (unknown) (unknown) 5.5 % (unkn own) (unknown) (no date) (unknown) (unknown) 600 /uL (unkn own) (unknown) (no date) (unknown) (unknown) 65.6 % (unkn own) (unknown) (no date) (unknown) (unknown) 7100 /uL (unkn own) (unknown) (no date) (unknown) (unknown) 85.5 fL (unkn own) Result panel 6 (unknown) (no date) (unknown) (unknown) > 60 mL/min (unkn own) (unknown) (no date) (unknown) (unknown) 0.5 mg/dL (unkn own) (unknown) (no date) (unknown) (unknown) 0.61 mg/dL (unkn own) (unknown) (no date) (unknown) (unknown) 1.5 (units unknown) (unknown) (unknown) (no date) (unknown) (unknown) 10 mg/dL (unkn own) (unknown) (no date) (unknown) (unknown) 105 mmol/L (unkn own) (unknown) (no date) (unknown) (unknown) 117 mg/dL (unkn own) (unknown) (no date) (unknown) (unknown) 139 mmol/L (unkn own) (unknown) (no date) (unknown) (unknown) 16.4 (units unknown) (unknown) (unknown) (no date) (unknown) (unknown) 20 IU/L (unkn own) (unknown) (no date) (unknown) (unknown) 23 IU/L (unkn own) (unknown) (no date) (unknown) (unknown) 25 mmol/L (unkn own) (unknown) (no date) (unknown) (unknown) 3.4 g/dL (unkn own) (unknown) (no date) (unknown) (unknown) 3.9 mmol/L (unkn own) (unknown) (no date) (unknown) (unknown) 5.1 g/dL (unkn own) (unknown) (no date) (unknown) (unknown) 8.5 g/dL (unkn own) (unknown) (no date) (unknown) (unknown) 80 U/L (unkn own) (unknown) (no date) (unknown) (unknown) 9.7 mg/dL (unkn own) Result panel 7 (unknown) (no (unknown) (unknown) (no value) (units (unk nown) date) unknown) (unknown) (no (unknown) (unknown) Date of Service: (units (unknown) date) 02/09/22 unknown) (unknown) (no (unknown) (unknown) (no value) (units (unk nown) date) unknown) (unknown) (no (unknown) (unknown) 02/09/22 16:25 (units (unknown) date) unknown) (unknown) (no (unknown) (unknown) Allergies (units (unkn own) date) unknown) (unknown) (no (unknown) (unknown) Documented By: (units (unknown) date) KLS unknown) (unknown) (no (unknown) (unknown) Documented By: (units (unknown) date) MLM unknown) (unknown) (no (unknown) (unknown) ED Orders (units (unkn own) date) unknown) (unknown) (no (unknown) (unknown) Emergency Report (units (unknown) date) unknown) (unknown) (no (unknown) (unknown) [facility] (units (unknown) date) [address] unknown) [place] [address] (unknown) (no (unknown) (unknown) Lab Results (units (un known) date) unknown) (unknown) (no (unknown) (unknown) Last Admin: (units (un known) date) 02/09/22 15:45 unknown) Dose: 975 mg (unknown) (no (unknown) (unknown) Last Admin: (units (un known) date) 02/09/22 16:25 unknown) Dose: 2 mg (unknown) (no (unknown) (unknown) Stop: 02/09/22 (units (unknown) date) 15:23 unknown) (unknown) (no (unknown) (unknown) Stop: 02/09/22 (units (unknown) date) 16:14 unknown) (unknown) (no (unknown) (unknown) Vital Signs - 8 (units (unknown) date) hr unknown) (unknown) (no (unknown) (unknown) (no value) (units (unk nown) date) unknown) (unknown) (no (unknown) (unknown) 02/09/22 02/09/22 (units (unknown) date) 02/09/22 unknown) Range/Units (unknown) (no (unknown) (unknown) 15:44 16:25 16:25 (units (unknown) date) unknown) (unknown) (no (unknown) (unknown) 02/09/22 (units (unkno wn) date) unknown) (unknown) (no (unknown) (unknown) [id number] (units (unkno wn) date) unknown) (unknown) (no (unknown) (unknown) 02/09/22 15:22 (units (unknown) date) unknown) (unknown) (no (unknown) (unknown) 02/09/22 15:44 (units (unknown) date) unknown) (unknown) (no (unknown) (unknown) 02/09/22 16:14 (units (unknown) date) unknown) (unknown) (no (unknown) (unknown) 02/09/22 16:25 (units (unknown) date) unknown) (unknown) (no (unknown) (unknown) 13:01 (units (unkno wn) date) unknown) (unknown) (no (unknown) (unknown) 8 point review of (units (unknown) date) systems is unknown) negative except for those stated above and HPI (unknown) (no (unknown) (unknown) ABDOMEN: Soft, (units (unknown) date) nontender. unknown) Normoactive bowel sounds all 4 quadrants. No (unknown) (no (unknown) (unknown) ALT 20 (<35) (units (unknown) date) IU/L unknown) (unknown) (no (unknown) (unknown) AST 23 (units (unkn own) date) (14-36) IU/L unknown) (unknown) (no (unknown) (unknown) Acetaminophen (units ( unknown) date) (Acetaminophen 325 unknown) Mg Tablet) 975 mg PO NOW ONE (unknown) (no (unknown) (unknown) Age/Sex: 21 / F (units (unknown) date) unknown) (unknown) (no (unknown) (unknown) Albumin 5.1 H (units (unknown) date) (3.5-5.0) g/dL unknown) (unknown) (no (unknown) (unknown) Albumin/Globulin (units (unknown) date) Ratio 1.5 unknown) (1.0-2.8) (unknown) (no (unknown) (unknown) Alkaline (units (unkno wn) date) Phosphatase 80 unknown) (38-126) U/L (unknown) (no (unknown) (unknown) Allergy/AdvReac (units (unknown) date) Type Severity unknown) Reaction Status Date / Time (unknown) (no (unknown) (unknown) BUN 10 (7-17) (units (unknown) date) mg/dL unknown) (unknown) (no (unknown) (unknown) BUN/Creatinine (units (unknown) date) Ratio 16.4 unknown) (6-22) (unknown) (no (unknown) (unknown) Baso # (Auto) (units ( unknown) date) 100 (0-100) /uL unknown) (unknown) (no (unknown) (unknown) Baso % (Auto) (units ( unknown) date) 0.6 (0-2) % unknown) (unknown) (no (unknown) (unknown) Blood Pressure (units (unknown) date) 127/73 02/09/22 unknown) 13:01 (unknown) (no (unknown) (unknown) Blood Pressure (units (unknown) date) 127 unknown) (unknown) (no (unknown) (unknown) CARDIOVASCULAR: (units (unknown) date) Denies chest pain, unknown) palpitations (unknown) (no (unknown) (unknown) CARDIOVASCULAR: (units (unknown) date) Regular rate and unknown) rhythm without murmurs, rubs or gallops. (unknown) (no (unknown) (unknown) CBC Auto Diff (units ( unknown) date) [Complete Blood unknown) Count AUTO DIFF] Stat (unknown) (no (unknown) (unknown) CMP (units (unkno wn) date) [Comprehensive unknown) Metabolic Panel] Stat (unknown) (no (unknown) (unknown) COVID19 -Nasal (units (unknown) date) RAPID/Pre-Proc unknown) Stat (unknown) (no (unknown) (unknown) CT head/brain wo (units (unknown) date) con Stat unknown) (unknown) (no (unknown) (unknown) Calcium 9.7 (units (unknown) date) (8.4-10.2) mg/dL unknown) (unknown) (no (unknown) (unknown) Carbon Dioxide (units (unknown) date) 25 (22-32) unknown) mmol/L (unknown) (no (unknown) (unknown) Chief Complaint: (units (unknown) date) Headache unknown) (unknown) (no (unknown) (unknown) Chloride 105 (units (unknown) date) (98-107) mmol/L unknown) (unknown) (no (unknown) (unknown) Course (units (unkno wn) date) unknown) (unknown) (no (unknown) (unknown) Creatinine (units (unk nown) date) 0.61 (0.52-1.04) unknown) mg/dL (unknown) (no (unknown) (unknown) : 2000 (units (unknown) date) Acct:[id number] unknown) (unknown) (no (unknown) (unknown) Discontinued (units (u nknown) date) Medications unknown) (unknown) (no (unknown) (unknown) ER Physician: (units ( unknown) date) Patricia Johnson unknown) D.O. (unknown) (no (unknown) (unknown) EXTREMITIES: (units (u nknown) date) Normal range of unknown) motion, no clubbing or edema. Neurovascularly (unknown) (no (unknown) (unknown) Eos # (Auto) (units (u nknown) date) 100 (0-450) /uL unknown) (unknown) (no (unknown) (unknown) Eos % (Auto) (units (u nknown) date) 0.7 L (2-4) % unknown) (unknown) (no (unknown) (unknown) Estimated GFR (units ( unknown) date) > 60 (>60) unknown) mL/min (unknown) (no (unknown) (unknown) Exam (units (unkno wn) date) unknown) (unknown) (no (unknown) (unknown) GASTROINTESTINAL: (units (unknown) date) Denies nausea, unknown) vomiting (unknown) (no (unknown) (unknown) GENERAL: Patient (units (unknown) date) is a unknown) well-appearing young 21-year-old female in no acute (unknown) (no (unknown) (unknown) GENERAL: Denies (units (unknown) date) chills,fever unknown) (unknown) (no (unknown) (unknown) General (units (unkno wn) date) unknown) (unknown) (no (unknown) (unknown) GenericComposite[ (units (unknown) date) Plt Count 347 unknown) (150-400) X10^3/uL ] (unknown) (no (unknown) (unknown) GenericComposite[ (units (unknown) date) RBC 5.30 H unknown) (4.0-5.2) X10^6/uL ] (unknown) (no (unknown) (unknown) GenericComposite[ (units (unknown) date) WBC 10.8 unknown) (4.5-11.0) X10^3/uL ] (unknown) (no (unknown) (unknown) Globulin 3.4 (units (unknown) date) (1.7-4.1) g/dL unknown) (unknown) (no (unknown) (unknown) Glucose 117 H (units (unknown) date) (70-100) mg/dL unknown) (unknown) (no (unknown) (unknown) HEENT: Denies (units ( unknown) date) throat pain unknown) (unknown) (no (unknown) (unknown) HEENT: Head (units (un known) date) atraumatic,EOMI, unknown) pupils reactive, face symmetric, moist mucous (unknown) (no (unknown) (unknown) HPI - Headache (units (unknown) date) unknown) (unknown) (no (unknown) (unknown) HPI Narrative: (units (unknown) date) unknown) (unknown) (no (unknown) (unknown) Hct 45.3 (units (unk nown) date) (36-46) % unknown) (unknown) (no (unknown) (unknown) Hgb 15.4 (units (unk nown) date) (12.0-16.0) g/dL unknown) (unknown) (no (unknown) (unknown) History of (units (unk nown) date) Present Illness unknown) (unknown) (no (unknown) (unknown) Initial Vital (units ( unknown) date) Signs unknown) (unknown) (no (unknown) (unknown) Initial Vital (units ( unknown) date) Signs: unknown) (unknown) (no (unknown) (unknown) Lab Data (units (unkno wn) date) unknown) (unknown) (no (unknown) (unknown) Labs: (units (unkno wn) date) unknown) (unknown) (no (unknown) (unknown) Lymph # (Auto) (units (unknown) date) 3000 (9941-9154) unknown) /uL (unknown) (no (unknown) (unknown) Lymph % (Auto) (units (unknown) date) 27.6 (25-40) % unknown) (unknown) (no (unknown) (unknown) MCH 29.1 (units (unk nown) date) (26-34) PG unknown) (unknown) (no (unknown) (unknown) MCHC 34.0 (units (un known) date) (30-36) % unknown) (unknown) (no (unknown) (unknown) MCV 85.5 (units (unk nown) date) (80-100) fL unknown) (unknown) (no (unknown) (unknown) MDM - Headache (units (unknown) date) unknown) (unknown) (no (unknown) (unknown) MDM Narrative (units ( unknown) date) unknown) (unknown) (no (unknown) (unknown) MR head/brain (units ( unknown) date) wo/w con Stat unknown) (unknown) (no (unknown) (unknown) MUSCULOSKELETAL: (units (unknown) date) Denies extremity unknown) pain, injury (unknown) (no (unknown) (unknown) Medical decision (units (unknown) date) making narrative: unknown) (unknown) (no (unknown) (unknown) Midazolam HCl (units ( unknown) date) (Midazolam 2 Mg/2 unknown) Ml Vial) 2 mg IV NOW ONE (unknown) (no (unknown) (unknown) Mode of arrival: (units (unknown) date) Ambulatory unknown) (unknown) (no (unknown) (unknown) Clinch # (Auto) (units ( unknown) date) 600 (0-900) /uL unknown) (unknown) (no (unknown) (unknown) Clinch % (Auto) (units ( unknown) date) 5.5 (3-14) % unknown) (unknown) (no (unknown) (unknown) NECK: Supple no (units (unknown) date) vertebral unknown) tenderness or step-off (unknown) (no (unknown) (unknown) NEUROLOGIC: + (units ( unknown) date) headache, see HPI unknown) (unknown) (no (unknown) (unknown) NEUROLOGICAL: (units (u nknown) date) Alert and oriented unknown) x4.Normal gait and speech. Card Room Manager strength equal (unknown) (no (unknown) (unknown) Narrative: (units (unk nown) date) unknown) (unknown) (no (unknown) (unknown) Neut # (Auto) (units ( unknown) date) 7100 H unknown) (2870-8299) /uL (unknown) (no (unknown) (unknown) Neut % (Auto) (units ( unknown) date) 65.6 (50-75) % unknown) (unknown) (no (unknown) (unknown) No Known Drug (units ( unknown) date) Allergies Allergy unknown) Verified 02/09/22 13:07 (unknown) (no (unknown) (unknown) Ordered: (units (unkno wn) date) unknown) (unknown) (no (unknown) (unknown) Orders (units (unkno wn) date) unknown) (unknown) (no (unknown) (unknown) Oxygen Delivery (units (unknown) date) Method 02/09/22 unknown) 13:01 (unknown) (no (unknown) (unknown) Oxygen Delivery (units (unknown) date) Method Room Air unknown) (unknown) (no (unknown) (unknown) Patient History (units (unknown) date) unknown) (unknown) (no (unknown) (unknown) Patient is a (units (u nknown) date) healthy unknown) 21-year-old female who presents with headache ongoing for (unknown) (no (unknown) (unknown) Patient overall (units (unknown) date) appears well. No unknown) sign of meningitis. She does not seem to be (unknown) (no (unknown) (unknown) Patient: (units (unkno wn) date) Jessy Gudino unknown) MR#: [id number] (unknown) (no (unknown) (unknown) Potassium 3.9 (units (unknown) date) (3.4-5.1) mmol/L unknown) (unknown) (no (unknown) (unknown) Pulse Oximetry (units (unknown) date) 95 02/09/22 unknown) 13:01 (unknown) (no (unknown) (unknown) Pulse Oximetry 95 (units (unknown) date) unknown) (unknown) (no (unknown) (unknown) Pulse Rate 94 H (units (unknown) date) 02/09/22 13:01 unknown) (unknown) (no (unknown) (unknown) Pulse Rate 94 H (units (unknown) date) unknown) (unknown) (no (unknown) (unknown) RDW 14.2 (units (unk nown) date) (11.6-14.8) % unknown) (unknown) (no (unknown) (unknown) RESPIRATORY: (units (u nknown) date) Breath sounds unknown) equal bilaterally, no wheezes rales or rhonchi. (unknown) (no (unknown) (unknown) RESPIRATORY: (units (u nknown) date) Denies dyspnea, unknown) cough, wheezing (unknown) (no (unknown) (unknown) Related Data (units (u nknown) date) unknown) (unknown) (no (unknown) (unknown) Respiratory Rate (units (unknown) date) 18 02/09/22 unknown) 13:01 (unknown) (no (unknown) (unknown) Respiratory Rate (units (unknown) date) 18 unknown) (unknown) (no (unknown) (unknown) Result diagrams: (units (unknown) date) unknown) (unknown) (no (unknown) (unknown) Review of Systems (units (unknown) date) unknown) (unknown) (no (unknown) (unknown) SARS-CoV-2 (PCR) (units (unknown) date) Negative unknown) (Negative) (unknown) (no (unknown) (unknown) SKIN: No rash, no (units (unknown) date) laceration, no unknown) pruritus (unknown) (no (unknown) (unknown) SKIN: Warm, dry, (units (unknown) date) no laceration, no unknown) petechiae, no rashes or lesions. (unknown) (no (unknown) (unknown) Signed By: (units (unk nown) date) unknown) (unknown) (no (unknown) (unknown) Smoking Status: (units (unknown) date) Never smoker unknown) (unknown) (no (unknown) (unknown) Smoking Status: (units (unknown) date) Never smoker unknown) (unknown) (no (unknown) (unknown) Social History (units (unknown) date) (Reviewed 02/09/22 unknown) @ 15:27 by Patricia Johnson DO) (unknown) (no (unknown) (unknown) Sodium 139 (units ( unknown) date) (137-145) mmol/L unknown) (unknown) (no (unknown) (unknown) Stated Complaint: (units (unknown) date) headaches/neck unknown) pain (unknown) (no (unknown) (unknown) Substance Use (units ( unknown) date) Type: does not use unknown) (unknown) (no (unknown) (unknown) Temperature 97.8 (units (unknown) date) F 02/09/22 13:01 unknown) (unknown) (no (unknown) (unknown) Temperature 97.8 (units (unknown) date) F unknown) (unknown) (no (unknown) (unknown) Time Seen by (units (u nknown) date) Provider: 02/09/22 unknown) 14:43 (unknown) (no (unknown) (unknown) Total Bilirubin (units (unknown) date) 0.5 (0.2-1.3) unknown) mg/dL (unknown) (no (unknown) (unknown) Total Protein (units ( unknown) date) 8.5 H (6.3-8.2) unknown) g/dL (unknown) (no (unknown) (unknown) Vital Signs (units (un known) date) unknown) (unknown) (no (unknown) (unknown) Vital signs: (units (u nknown) date) unknown) (unknown) (no (unknown) (unknown) [Embedded Image (units (unknown) date) Not Available] unknown) (unknown) (no (unknown) (unknown) bilaterally (units (un known) date) unknown) (unknown) (no (unknown) (unknown) clock she says it (units (unknown) date) does help when it unknown) wears off her headache comes back. She (unknown) (no (unknown) (unknown) denies any nausea (units (unknown) date) or vomiting. She unknown) is not sensitive to light. She has no (unknown) (no (unknown) (unknown) distress (units (unkno wn) date) unknown) (unknown) (no (unknown) (unknown) guarding or (units (un known) date) rebound. unknown) (unknown) (no (unknown) (unknown) in severe pain. (units (unknown) date) However she does unknown) not typically get headaches. She had a home (unknown) (no (unknown) (unknown) intact (units (unkno wn) date) unknown) (unknown) (no (unknown) (unknown) membranes (units (unkn own) date) unknown) (unknown) (no (unknown) (unknown) negative COVID (units (unknown) date) test week ago. unknown) (unknown) (no (unknown) (unknown) numbness tingling (units (unknown) date) or weakness. He unknown) has really gotten headaches like this in the (unknown) (no (unknown) (unknown) pain. But she (units (unknown) date) denies any fever unknown) or chills. She is able to move her neck is now (unknown) (no (unknown) (unknown) past. She was (units ( unknown) date) seen at a walk-in unknown) clinic who told her she was just dehydrated she (unknown) (no (unknown) (unknown) says that she has (units (unknown) date) been drinking lots unknown) of water she is not dizzy or lightheaded (unknown) (no (unknown) (unknown) she has no chest (units (unknown) date) pain palpitations. unknown) She also has been complaining of some head (unknown) (no (unknown) (unknown) the last 1 week. (units (unknown) date) She says she has unknown) been taking ibuprofen pretty much around the (unknown) (no (unknown) (unknown) without any sort (units (unknown) date) of difficulty. unknown) Result panel 8 (unknown) (no (unknown) (unknown) (no value) (units (unk nown) date) unknown) (unknown) (no (unknown) (unknown) Radiologist's (units ( unknown) date) Impression: unknown) (unknown) (no (unknown) (unknown) Date of Service: (units (unknown) date) 02/09/22 unknown) (unknown) (no (unknown) (unknown) (no value) (units (unk nown) date) unknown) (unknown) (no (unknown) (unknown) <Electronically (units (unknown) date) signed by Patricia unknownFigueroa Johnson D.O.> (unknown) (no (unknown) (unknown) 02/09/22 16:25 (units (unknown) date) unknown) (unknown) (no (unknown) (unknown) 02/10/22 0712 (units ( unknown) date) unknown) (unknown) (no (unknown) (unknown) 1 tab PO Q6H PRN (units (unknown) date) (Reason: pain) unknown) Qty: 10 0RF (unknown) (no (unknown) (unknown) 20 mg PO Q2-4H (units (unknown) date) PRN (Reason: unknown) migraine headache) Qty: 7 0RF (unknown) (no (unknown) (unknown) Allergies (units (unkn own) date) unknown) (unknown) (no (unknown) (unknown) CT Scan Report (units (unknown) date) unknown) (unknown) (no (unknown) (unknown) Documented By: AT (units (unknown) date) unknown) (unknown) (no (unknown) (unknown) Documented By: (units (unknown) date) KLS unknown) (unknown) (no (unknown) (unknown) Documented By: (units (unknown) date) MLM unknown) (unknown) (no (unknown) (unknown) Emergency Report (units (unknown) date) unknown) (unknown) (no (unknown) (unknown) [facility] (units (unknown) date) [address]) [place] [address] (unknown) (no (unknown) (unknown) Lab Results (units (un known) date) unknown) (unknown) (no (unknown) (unknown) Last Admin: (units (un known) date) 02/09/22 15:45 unknown) Dose: 975 mg (unknown) (no (unknown) (unknown) Last Admin: (units (un known) date) 02/09/22 16:25 unknown) Dose: 2 mg (unknown) (no (unknown) (unknown) Last Admin: (units (un known) date) 02/09/22 18:02 unknown) Dose: 1 bottle (unknown) (no (unknown) (unknown) Magnetic (units (unkno wn) date) Resonance Report unknown) (unknown) (no (unknown) (unknown) Previous Rx's (units ( unknown) date) unknown) (unknown) (no (unknown) (unknown) Rx Instructions: (units (unknown) date) unknown) (unknown) (no (unknown) (unknown) Signed (units (unkno wn) date) unknown) (unknown) (no (unknown) (unknown) Stop: 02/09/22 (units (unknown) date) 15:23 unknown) (unknown) (no (unknown) (unknown) Stop: 02/09/22 (units (unknown) date) 16:14 unknown) (unknown) (no (unknown) (unknown) Stop: 02/09/22 (units (unknown) date) 17:40 unknown) (unknown) (no (unknown) (unknown) Vital Signs - 8 (units (unknown) date) hr unknown) (unknown) (no (unknown) (unknown) do not exceed 4 (units (unknown) date) doses per 24 hrs unknown) (unknown) (no (unknown) (unknown) (no value) (units (unk nown) date) unknown) (unknown) (no (unknown) (unknown) 02/09/22 02/09/22 (units (unknown) date) 02/09/22 unknown) Range/Units (unknown) (no (unknown) (unknown) 15:44 16:25 16:25 (units (unknown) date) unknown) (unknown) (no (unknown) (unknown) eletriptan (units (unk nown) date) [Relpax] 20 mg unknown) tablet (unknown) (no (unknown) (unknown) hydrocodone-aceta (units (unknown) date) minophen 5-325 mg unknown) tablet (unknown) (no (unknown) (unknown) 02/09/22 (units (unkno wn) date) unknown) (unknown) (no (unknown) (unknown) Medication (units (unk nown) date) Instructions unknown) Recorded (unknown) (no (unknown) (unknown) Migraine (units (unkno wn) date) unknown) (unknown) (no (unknown) (unknown) headache #7 tabs (units (unknown) date) unknown) (unknown) (no (unknown) (unknown) numbness tingling (units (unknown) date) or any new, unknown) worsening or concerning symptoms (unknown) (no (unknown) (unknown) see anyone in (units ( unknown) date) till March she unknown) does need to get into Neurology as well. (unknown) (no (unknown) (unknown) TRAMADOL DOES (units (unknown) date) NOT CONTAIN unknown) TYLENOL (unknown) (no (unknown) (unknown) *Continue to take (units (unknown) date) medications as unknown) directed (unknown) (no (unknown) (unknown) *Follow up with (units (unknown) date) your primary care unknown) provider in 2-3 days or call [phone] (unknown) (no (unknown) (unknown) *Return to ER if (units (unknown) date) you should have unknown) worsening headache persistent vomiting weakness (unknown) (no (unknown) (unknown) *What to do: (units (u nknown) date) Today your MRI and unknown) CT did show some calcifications which may or (unknown) (no (unknown) (unknown) *You have been (units (unknown) date) diagnosed with unknown) migraine headache (unknown) (no (unknown) (unknown) [id number] (units (unkno wn) date) unknown) (unknown) (no (unknown) (unknown) 1. You have been (units (unknown) date) prescribed unknown) narcotic medications, it does have (unknown) (no (unknown) (unknown) 13:01 (units (unkno wn) date) unknown) (unknown) (no (unknown) (unknown) 2. Please (units (unk nown) date) understand that we unknown) cannot provide further refills of narcotics, (unknown) (no (unknown) (unknown) 3. While on (units (u nknown) date) these medications unknown) you cannot drive or operate heavy machinery. (unknown) (no (unknown) (unknown) 4. You cannot (units (unknown) date) sign legal unknown) documents or perform any duties such as this. (unknown) (no (unknown) (unknown) 5. As long as (units (unknown) date) you're taking unknown) opiate pain medications he should also be taking a (unknown) (no (unknown) (unknown) 8 point review of (units (unknown) date) systems is unknown) negative except for those stated above and HPI (unknown) (no (unknown) (unknown) ? (units (unkno wn) date) unknown) (unknown) (no (unknown) (unknown) ABDOMEN: Soft, (units (unknown) date) nontender. unknown) Normoactive bowel sounds all 4 quadrants. No (unknown) (no (unknown) (unknown) ALT 20 (<35) (units (unknown) date) IU/L unknown) (unknown) (no (unknown) (unknown) AST 23 (units (unkn own) date) (14-36) IU/L unknown) (unknown) (no (unknown) (unknown) Accession Number: (units (unknown) date) [id number] ?? unknown) (unknown) (no (unknown) (unknown) Accession Number: (units (unknown) date) [id number] ?? unknown) (unknown) (no (unknown) (unknown) Acct:[id number] (units (unknown) date) unknown) (unknown) (no (unknown) (unknown) Acetaminophen (units ( unknown) date) (Acetaminophen 325 unknown) Mg Tablet) 975 mg PO NOW ONE (unknown) (no (unknown) (unknown) Activity (units (unkno wn) date) Restrictions/Addit unknown) ional Instructions: (unknown) (no (unknown) (unknown) Age/Sex: 21 / F (units (unknown) date) unknown) (unknown) (no (unknown) (unknown) Age/Sex: 21 / F (units (unknown) date) unknown) (unknown) (no (unknown) (unknown) Albumin 5.1 H (units (unknown) date) (3.5-5.0) g/dL unknown) (unknown) (no (unknown) (unknown) Albumin/Globulin (units (unknown) date) Ratio 1.5 unknown) (1.0-2.8) (unknown) (no (unknown) (unknown) Alkaline (units (unkno wn) date) Phosphatase 80 unknown) (38-126) U/L (unknown) (no (unknown) (unknown) Allergy/AdvReac (units (unknown) date) Type Severity unknown) Reaction Status Date / Time (unknown) (no (unknown) (unknown) Alternatively, (units (unknown) date) consider areas of unknown) chronic ischemia secondary to migraines.? (unknown) (no (unknown) (unknown) Approved by: (units (u nknown) date) annette Singh M.D. on 02/09/2022 at 16:11 ? (unknown) (no (unknown) (unknown) BUN 10 (7-17) (units (unknown) date) mg/dL unknown) (unknown) (no (unknown) (unknown) BUN/Creatinine (units (unknown) date) Ratio 16.4 unknown) (6-22) (unknown) (no (unknown) (unknown) Baso # (Auto) (units ( unknown) date) 100 (0-100) /uL unknown) (unknown) (no (unknown) (unknown) Baso % (Auto) (units ( unknown) date) 0.6 (0-2) % unknown) (unknown) (no (unknown) (unknown) Blood Pressure (units (unknown) date) 127/73 02/09/22 unknown) 13:01 (unknown) (no (unknown) (unknown) Blood Pressure (units (unknown) date) 127/73 unknown) (unknown) (no (unknown) (unknown) Brain:? No (units (unk nown) date) midline shift.? No unknown) intracranial bleeds or masses.? There are (unknown) (no (unknown) (unknown) Brain:? No (units (unk nown) date) midline shift.? unknown) Tiny bilateral deep white matter densities most (unknown) (no (unknown) (unknown) CARDIOVASCULAR: (units (unknown) date) Denies chest pain, unknown) palpitations (unknown) (no (unknown) (unknown) CARDIOVASCULAR: (units (unknown) date) Regular rate and unknown) rhythm without murmurs, rubs or gallops. (unknown) (no (unknown) (unknown) COMPARISON:? ([facility] (u nknown) date) [facility] [facility], unknown) CT, CT HEAD/BRAIN WO CON, 02/09/2022, 15:29. (unknown) (no (unknown) (unknown) COMPARISON:? (units (u nknown) date) None. unknown) (unknown) (no (unknown) (unknown) CONTROLLED (units (unk nown) date) SUBSTANCE unknown) DISCHARGE (Narcotoic/benzodi azepine/Flexeril/P henergan) (unknown) (no (unknown) (unknown) CSF Spaces:? (units (u nknown) date) Basal cisterns are unknown) patent.? No extra-axial fluid collections.? (unknown) (no (unknown) (unknown) CSF spaces:? (units (u nknown) date) Basal cisterns are unknown) patent.? No extra-axial fluid collections.? (unknown) (no (unknown) (unknown) CT scan - head: (units (unknown) date) unknown) (unknown) (no (unknown) (unknown) Calcium 9.7 (units (unknown) date) (8.4-10.2) mg/dL unknown) (unknown) (no (unknown) (unknown) Carbon Dioxide (units (unknown) date) 25 (22-32) unknown) mmol/L (unknown) (no (unknown) (unknown) Chief Complaint: (units (unknown) date) Headache unknown) (unknown) (no (unknown) (unknown) Chloride 105 (units (unknown) date) (98-107) mmol/L unknown) (unknown) (no (unknown) (unknown) Clinical (units (unkno wn) date) Impression: unknown) (unknown) (no (unknown) (unknown) Comment:? Brain (units (unknown) date) MRI with without unknown) contrast may be helpful. (unknown) (no (unknown) (unknown) Course (units (unkno wn) date) unknown) (unknown) (no (unknown) (unknown) Creatinine (units (unk nown) date) 0.61 (0.52-1.04) unknown) mg/dL (unknown) (no (unknown) (unknown) : 2000 (units (unknown) date) Acct:[id number] unknown) (unknown) (no (unknown) (unknown) : 2000 (units (unknown) date) unknown) (unknown) (no (unknown) (unknown) Date of Service: (units (unknown) date) 02/09/22 unknown) (unknown) (no (unknown) (unknown) Departure (units (unkn own) date) unknown) (unknown) (no (unknown) (unknown) Dictated by: (units (u nknown) date) shanna Singh) Patience on 02/09/2022 at 14:45 ? ? (unknown) (no (unknown) (unknown) Dictated by: (units (u nknown) date) shanna Singh) Patience on 02/09/2022 at 16:03 ? ? (unknown) (no (unknown) (unknown) Discharge Plan (units (unknown) date) unknown) (unknown) (no (unknown) (unknown) Discontinued (units (u nknown) date) Medications unknown) (unknown) (no (unknown) (unknown) ER Physician: (units ( unknown) date) Patricia Johnson unknown) D.O. (unknown) (no (unknown) (unknown) EXTREMITIES: (units (u nknown) date) Normal range of unknown) motion, no clubbing or edema. Neurovascularly (unknown) (no (unknown) (unknown) Eos # (Auto) (units (u nknown) date) 100 (0-450) /uL unknown) (unknown) (no (unknown) (unknown) Eos % (Auto) (units (u nknown) date) 0.7 L (2-4) % unknown) (unknown) (no (unknown) (unknown) Estimated GFR (units ( unknown) date) > 60 (>60) unknown) mL/min (unknown) (no (unknown) (unknown) Exam (units (unkno wn) date) unknown) (unknown) (no (unknown) (unknown) FINDINGS:? (units (unk nown) date) unknown) (unknown) (no (unknown) (unknown) FLAIR, (units (unkno wn) date) unknown) (unknown) (no (unknown) (unknown) GASTROINTESTINAL: (units (unknown) date) Denies nausea, unknown) vomiting (unknown) (no (unknown) (unknown) GENERAL: Patient (units (unknown) date) is a unknown) well-appearing young 21-year-old female in no acute (unknown) (no (unknown) (unknown) GENERAL: Denies (units (unknown) date) chills,fever unknown) (unknown) (no (unknown) (unknown) General (units (unkno wn) date) unknown) (unknown) (no (unknown) (unknown) GenericComposite[ (units (unknown) date) Plt Count 347 unknown) (150-400) X10^3/uL ] (unknown) (no (unknown) (unknown) GenericComposite[ (units (unknown) date) RBC 5.30 H unknown) (4.0-5.2) X10^6/uL ] (unknown) (no (unknown) (unknown) GenericComposite[ (units (unknown) date) WBC 10.8 unknown) (4.5-11.0) X10^3/uL ] (unknown) (no (unknown) (unknown) Globulin 3.4 (units (unknown) date) (1.7-4.1) g/dL unknown) (unknown) (no (unknown) (unknown) Glucose 117 H (units (unknown) date) (70-100) mg/dL unknown) (unknown) (no (unknown) (unknown) HEENT: Denies (units ( unknown) date) throat pain unknown) (unknown) (no (unknown) (unknown) HEENT: Head (units (un known) date) atraumatic,EOMI, unknown) pupils reactive, face symmetric, moist mucous (unknown) (no (unknown) (unknown) HPI - Headache (units (unknown) date) unknown) (unknown) (no (unknown) (unknown) HPI Narrative: (units (unknown) date) unknown) (unknown) (no (unknown) (unknown) Hct 45.3 (units (unk nown) date) (36-46) % unknown) (unknown) (no (unknown) (unknown) Hgb 15.4 (units (unk nown) date) (12.0-16.0) g/dL unknown) (unknown) (no (unknown) (unknown) History of (units (unk nown) date) Present Illness unknown) (unknown) (no (unknown) (unknown) Hydrocodone (units (unk nown) date) Bitart/Acetaminoph unknown) en (Hydrocodone/Acet 5/325 Prepack) 1 bottle MISC (unknown) (no (unknown) (unknown) IMPRESSION:? (units (u nknown) date) Bilateral deep unknown) white matter changes are greater than expected for (unknown) (no (unknown) (unknown) IMPRESSION:? (units (u nknown) date) Question diffuse unknown) process involving the deep white matter (unknown) (no (unknown) (unknown) INDICATIONS:? (units ( unknown) date) Calcification in unknown) deep white matter (unknown) (no (unknown) (unknown) INDICATIONS:? new (units (unknown) date) onset headahe unknown) (unknown) (no (unknown) (unknown) Ibuprofen 600 mg (units (unknown) date) every 6 hours unknown) (unknown) (no (unknown) (unknown) Image quality:? (units (unknown) date) Excellent.? unknown) (unknown) (no (unknown) (unknown) Imaging Data (units (u nknown) date) unknown) (unknown) (no (unknown) (unknown) Initial Vital (units ( unknown) date) Signs unknown) (unknown) (no (unknown) (unknown) Initial Vital (units ( unknown) date) Signs: unknown) (unknown) (no (unknown) (unknown) Instructions: DI (units (unknown) date) for Migraine unknown) (unknown) (no (unknown) (unknown) Lab Data (units (unkno wn) date) unknown) (unknown) (no (unknown) (unknown) Labs: (units (unkno wn) date) unknown) (unknown) (no (unknown) (unknown) Loc: ED (units (unkno wn) date) unknown) (unknown) (no (unknown) (unknown) Lymph # (Auto) (units (unknown) date) 3000 (0197-6682) unknown) /uL (unknown) (no (unknown) (unknown) Lymph % (Auto) (units (unknown) date) 27.6 (25-40) % unknown) (unknown) (no (unknown) (unknown) MCH 29.1 (units (unk nown) date) (26-34) PG unknown) (unknown) (no (unknown) (unknown) MCHC 34.0 (units (un known) date) (30-36) % unknown) (unknown) (no (unknown) (unknown) MCV 85.5 (units (unk nown) date) (80-100) fL unknown) (unknown) (no (unknown) (unknown) MDM - Headache (units (unknown) date) unknown) (unknown) (no (unknown) (unknown) MDM Narrative (units ( unknown) date) unknown) (unknown) (no (unknown) (unknown) MR brain: (units (unkn own) date) unknown) (unknown) (no (unknown) (unknown) MR#: [id number] (units (unknown) date) unknown) (unknown) (no (unknown) (unknown) MUSCULOSKELETAL: (units (unknown) date) Denies extremity unknown) pain, injury (unknown) (no (unknown) (unknown) Medical decision (units (unknown) date) making narrative: unknown) (unknown) (no (unknown) (unknown) Midazolam HCl (units ( unknown) date) (Midazolam 2 Mg/2 unknown) Ml Vial) 2 mg IV NOW ONE (unknown) (no (unknown) (unknown) Mode of arrival: (units (unknown) date) Ambulatory unknown) (unknown) (no (unknown) (unknown) Clinch # (Auto) (units ( unknown) date) 600 (0-900) /uL unknown) (unknown) (no (unknown) (unknown) Clinch % (Auto) (units ( unknown) date) 5.5 (3-14) % unknown) (unknown) (no (unknown) (unknown) NECK: Supple no (units (unknown) date) vertebral unknown) tenderness or step-off (unknown) (no (unknown) (unknown) NEUROLOGIC: + (units ( unknown) date) headache, see HPI unknown) (unknown) (no (unknown) (unknown) NEUROLOGICAL: (units (u nknown) date) Alert and oriented unknown) x4.Normal gait and speech. Card Room Manager strength equal (unknown) (no (unknown) (unknown) Narrative: (units (unk nown) date) unknown) (unknown) (no (unknown) (unknown) Neut # (Auto) (units ( unknown) date) 7100 H unknown) (6522-5101) /uL (unknown) (no (unknown) (unknown) Neut % (Auto) (units ( unknown) date) 65.6 (50-75) % unknown) (unknown) (no (unknown) (unknown) New (units (unkno wn) date) unknown) (unknown) (no (unknown) (unknown) No Known Drug (units ( unknown) date) Allergies Allergy unknown) Verified 02/09/22 13:07 (unknown) (no (unknown) (unknown) Noncontrast 4.5 (units (unknown) date) mm thick angled unknown) axial sections acquired from the foramen magnum (unknown) (no (unknown) (unknown) Noncontrast axial (units (unknown) date) T1 spin echo, unknown) axial T2 fast spin echo, sagittal and axial (unknown) (no (unknown) (unknown) [place] 1 tablet (units (unknown) date) every 6 hours if unknown) needed for severe pain (unknown) (no (unknown) (unknown) Ordered: (units (unkno wn) date) unknown) (unknown) (no (unknown) (unknown) Ordering (units (unkno wn) date) Provider: unknown) Patricia Johnson D.O. (unknown) (no (unknown) (unknown) Orders (units (unkno wn) date) unknown) (unknown) (no (unknown) (unknown) Oxygen Delivery (units (unknown) date) Method 02/09/22 unknown) 13:01 (unknown) (no (unknown) (unknown) Oxygen Delivery (units (unknown) date) Method Room Air unknown) (unknown) (no (unknown) (unknown) PROCEDURE:? CT (units (unknown) date) HEAD/BRAIN WO CON unknown) (unknown) (no (unknown) (unknown) PROCEDURE:? MR (units (unknown) date) HEAD/BRAIN WO/W unknown) CON (unknown) (no (unknown) (unknown) Patient (units (unkno wn) date) Disposition: Home unknown) (unknown) (no (unknown) (unknown) Patient History (units (unknown) date) unknown) (unknown) (no (unknown) (unknown) Patient is a (units (u nknown) date) healthy unknown) 21-year-old female who presents with headache ongoing for (unknown) (no (unknown) (unknown) Patient overall (units (unknown) date) appears well. No unknown) sign of meningitis. She does not seem to be (unknown) (no (unknown) (unknown) Patient: (units (unkno wn) date) Shahab,Jessy unknown) MR#: [id number] (unknown) (no (unknown) (unknown) Patient: (units (unkno wn) date) Shahab,Jessy unknown) (unknown) (no (unknown) (unknown) Potassium 3.9 (units (unknown) date) (3.4-5.1) mmol/L unknown) (unknown) (no (unknown) (unknown) Prescriptions: (units (unknown) date) unknown) (unknown) (no (unknown) (unknown) Procedure: CT (units ( unknown) date) head/brain wo con unknown) (unknown) (no (unknown) (unknown) Procedure: MR (units ( unknown) date) head/brain wo/w unknown) con (unknown) (no (unknown) (unknown) Pulse Oximetry (units (unknown) date) 95 02/09/22 unknown) 13:01 (unknown) (no (unknown) (unknown) Pulse Oximetry 95 (units (unknown) date) unknown) (unknown) (no (unknown) (unknown) Pulse Rate 94 H (units (unknown) date) 02/09/22 13:01 unknown) (unknown) (no (unknown) (unknown) Pulse Rate 94 H (units (unknown) date) unknown) (unknown) (no (unknown) (unknown) RDW 14.2 (units (unk nown) date) (11.6-14.8) % unknown) (unknown) (no (unknown) (unknown) RESPIRATORY: (units (u nknown) date) Breath sounds unknown) equal bilaterally, no wheezes rales or rhonchi. (unknown) (no (unknown) (unknown) RESPIRATORY: (units (u nknown) date) Denies dyspnea, unknown) cough, wheezing (unknown) (no (unknown) (unknown) Referrals: (units (unk nown) date) unknown) (unknown) (no (unknown) (unknown) Related Data (units (u nknown) date) unknown) (unknown) (no (unknown) (unknown) Relpax 20 mg x 1 (units (unknown) date) for headache, unknown) recommend this as first-line for your headache (unknown) (no (unknown) (unknown) Respiratory Rate (units (unknown) date) 18 02/09/22 unknown) 13:01 (unknown) (no (unknown) (unknown) Respiratory Rate (units (unknown) date) 18 unknown) (unknown) (no (unknown) (unknown) Result diagrams: (units (unknown) date) unknown) (unknown) (no (unknown) (unknown) Review of Systems (units (unknown) date) unknown) (unknown) (no (unknown) (unknown) SARS-CoV-2 (PCR) (units (unknown) date) Negative unknown) (Negative) (unknown) (no (unknown) (unknown) SEEINSTR ONE (units (u nknown) date) unknown) (unknown) (no (unknown) (unknown) SKIN: No rash, no (units (unknown) date) laceration, no unknown) pruritus (unknown) (no (unknown) (unknown) SKIN: Warm, dry, (units (unknown) date) no laceration, no unknown) petechiae, no rashes or lesions. (unknown) (no (unknown) (unknown) Signed By: (units (unk nown) date) unknown) (unknown) (no (unknown) (unknown) Sinuses:? Sinuses (units (unknown) date) and mastoids unknown) appear clear.? (unknown) (no (unknown) (unknown) Sinuses:? (units (unkn own) date) Visualized sinuses unknown) and mastoids are clear.? (unknown) (no (unknown) (unknown) Skull and face:? (units (unknown) date) Calvarial marrow unknown) is normal in signal.? Orbits appear normal.? (unknown) (no (unknown) (unknown) Skull and face:? (units (unknown) date) Calvarium and unknown) visualized facial bones are intact, without (unknown) (no (unknown) (unknown) Smoking Status: (units (unknown) date) Never smoker unknown) (unknown) (no (unknown) (unknown) Smoking Status: (units (unknown) date) Never smoker unknown) (unknown) (no (unknown) (unknown) Social History (units (unknown) date) (Reviewed 02/09/22 unknown) @ 15:27 by Patricia Johnson DO) (unknown) (no (unknown) (unknown) Sodium 139 (units ( unknown) date) (137-145) mmol/L unknown) (unknown) (no (unknown) (unknown) Stated Complaint: (units (unknown) date) headaches/neck unknown) pain (unknown) (no (unknown) (unknown) Yong Lux MD (units (unknown) date) [Non-Staff] - unknown) (unknown) (no (unknown) (unknown) Substance Use (units ( unknown) date) Type: does not use unknown) (unknown) (no (unknown) (unknown) T1 spin echo with (units (unknown) date) fat saturation unknown) through the brain.? (unknown) (no (unknown) (unknown) TECHNIQUE:? (units (un known) date) unknown) (unknown) (no (unknown) (unknown) Temperature 97.8 (units (unknown) date) F 02/09/22 13:01 unknown) (unknown) (no (unknown) (unknown) Temperature 97.8 (units (unknown) date) F unknown) (unknown) (no (unknown) (unknown) Time Seen by (units (u nknown) date) Provider: 02/09/22 unknown) 14:43 (unknown) (no (unknown) (unknown) Total Bilirubin (units (unknown) date) 0.5 (0.2-1.3) unknown) mg/dL (unknown) (no (unknown) (unknown) Total Protein (units ( unknown) date) 8.5 H (6.3-8.2) unknown) g/dL (unknown) (no (unknown) (unknown) Tylenol 1000 mg (units (unknown) date) every 6 hours unknown) (unknown) (no (unknown) (unknown) VIBE or (units (unkno wn) date) unknown) (unknown) (no (unknown) (unknown) Ventricles (units (unk nown) date) unknown) (unknown) (no (unknown) (unknown) Visit Report (units (u nknown) date) Forms: Patient unknown) Portal/API (unknown) (no (unknown) (unknown) Vital Signs (units (un known) date) unknown) (unknown) (no (unknown) (unknown) Vital signs: (units (u nknown) date) unknown) (unknown) (no (unknown) (unknown) [Embedded Image (units (unknown) date) Not Available] unknown) (unknown) (no (unknown) (unknown) abnormalities (units ( unknown) date) involving the unknown) corpus callosum.? No abnormal intracranial (unknown) (no (unknown) (unknown) acetaminophen/Tyl (units (unknown) date) enol/paracetamol unknown) in it, DO NOT TAKE MORE THAN 4,00mg in 24 (unknown) (no (unknown) (unknown) age, and have an (units (unknown) date) appearance where unknown) they 10 to radiate towards the lateral (unknown) (no (unknown) (unknown) age.? Consider (units (unknown) date) possible unknown) demyelinating disorder such as multiple sclerosis.? (unknown) (no (unknown) (unknown) appearance is (units ( unknown) date) nonspecific, but unknown) may potentially represent presence a (unknown) (no (unknown) (unknown) are normal in (units ( unknown) date) size and shape.? unknown) (unknown) (no (unknown) (unknown) benzodiazepines (units (unknown) date) or controlled unknown) substances through the ED and her pain management (unknown) (no (unknown) (unknown) bilateral (units (unkn own) date) unknown) (unknown) (no (unknown) (unknown) bilateral deep (units (unknown) date) better white unknown) calcifications which are abnormal for her age. It (unknown) (no (unknown) (unknown) bilaterally (units (un known) date) unknown) (unknown) (no (unknown) (unknown) bilaterally.? (units ( unknown) date) This unknown) (unknown) (no (unknown) (unknown) brain.? After the (units (unknown) date) administration of unknown) contrast, axial and coronal and sagittal 3D (unknown) (no (unknown) (unknown) brainstem appears (units (unknown) date) normal.? unknown) Diffusion-weighted images demonstrate no acute (unknown) (no (unknown) (unknown) calcifications. (units (unknown) date) unknown) (unknown) (no (unknown) (unknown) clock she says it (units (unknown) date) does help when it unknown) wears off her headache comes back. She (unknown) (no (unknown) (unknown) constipation. (units ( unknown) date) unknown) (unknown) (no (unknown) (unknown) coronal T2 fast (units (unknown) date) spin echo, axial unknown) gradient echo, axial diffusion and ADC through (unknown) (no (unknown) (unknown) demyelinating (units ( unknown) date) unknown) (unknown) (no (unknown) (unknown) denies any nausea (units (unknown) date) or vomiting. She unknown) is not sensitive to light. She has no (unknown) (no (unknown) (unknown) disorder such as (units (unknown) date) multiple unknown) sclerosis.? Alternatively, this may potentially (unknown) (no (unknown) (unknown) distress (units (unkno wn) date) unknown) (unknown) (no (unknown) (unknown) eletriptan 20 mg (units (unknown) date) tablet (Relpax) 20 unknown) mg PO Q2-4H PRN migraine 02/09/22 (unknown) (no (unknown) (unknown) enhancement.? The (units (unknown) date) unknown) (unknown) (no (unknown) (unknown) following (units (unkn own) date) unknown) (unknown) (no (unknown) (unknown) guarding or (units (un known) date) rebound. unknown) (unknown) (no (unknown) (unknown) headaches. (units (unk nown) date) unknown) (unknown) (no (unknown) (unknown) headaches. She (units (unknown) date) has no weakness. unknown) She has no eye pain or visual changes. This (unknown) (no (unknown) (unknown) hours of Tylenol. (units (unknown) date) unknown) (unknown) (no (unknown) (unknown) hydrocodone 5 (units ( unknown) date) mg-acetaminophen unknown) 325 1 tab PO Q6H PRN pain #10 tabs 02/09/22 (unknown) (no (unknown) (unknown) hypodensities. (units (unknown) date) unknown) (unknown) (no (unknown) (unknown) in severe pain. (units (unknown) date) However she does unknown) not typically get headaches. She had a home (unknown) (no (unknown) (unknown) insults.? No (units (u nknown) date) chronic ischemic unknown) insults.? Normal intravascular flow voids are (unknown) (no (unknown) (unknown) intact (units (unkno wn) date) unknown) (unknown) (no (unknown) (unknown) is not definite.? (units (unknown) date) Also present are unknown) probable bilateral deep white matter (unknown) (no (unknown) (unknown) is some causing (units (unknown) date) her pain. Is will unknown) start her on medication for migraines. She (unknown) (no (unknown) (unknown) ischemic (units (unkno wn) date) unknown) (unknown) (no (unknown) (unknown) lesions.? (units (unkn own) date) unknown) (unknown) (no (unknown) (unknown) likely (units (unkno wn) date) unknown) (unknown) (no (unknown) (unknown) may not be (units (unk nown) date) related to unknown) multiple sclerosis. This should not be causing your (unknown) (no (unknown) (unknown) membranes (units (unkn own) date) unknown) (unknown) (no (unknown) (unknown) mg tablet (units (unkn own) date) unknown) (unknown) (no (unknown) (unknown) might possibly be (units (unknown) date) getting rebound unknown) headaches Tylenol and ibuprofen. Recommend (unknown) (no (unknown) (unknown) negative COVID (units (unknown) date) test week ago, it unknown) is negative again here. Head CT today shows (unknown) (no (unknown) (unknown) numbness tingling (units (unknown) date) or weakness. He unknown) has really gotten headaches like this in the (unknown) (no (unknown) (unknown) pain. But she (units (unknown) date) denies any fever unknown) or chills. She is able to move her neck is now (unknown) (no (unknown) (unknown) past. She was (units ( unknown) date) seen at a walk-in unknown) clinic who told her she was just dehydrated she (unknown) (no (unknown) (unknown) patient (units (unkno wn) date) unknown) (unknown) (no (unknown) (unknown) periventricular (units (unknown) date) deep white matter unknown) changes which are greater than expected for (unknown) (no (unknown) (unknown) present.? (units (unkn own) date) unknown) (unknown) (no (unknown) (unknown) represent small (units (unknown) date) unknown) (unknown) (no (unknown) (unknown) represent small (units (unknown) date) calcifications.? unknown) Question increased bilateral deep white matter (unknown) (no (unknown) (unknown) says that she has (units (unknown) date) been drinking lots unknown) of water she is not dizzy or lightheaded (unknown) (no (unknown) (unknown) she has no chest (units (unknown) date) pain palpitations. unknown) She also has been complaining of some head (unknown) (no (unknown) (unknown) size.? (units (unkno wn) date) unknown) (unknown) (no (unknown) (unknown) stool softener (units (unknown) date) such as Colace, unknown) Dulcolax, MiraLAX or prune juice, to help avoid (unknown) (no (unknown) (unknown) suspicious (units (unk nown) date) unknown) (unknown) (no (unknown) (unknown) syndrome possible (units (unknown) date) multiple unknown) sclerosis. However at this should not cause (unknown) (no (unknown) (unknown) that she follow-up (units (unknown) date) with a primary unknown) care provider she says she is not scheduled to (unknown) (no (unknown) (unknown) the (units (unkno wn) date) unknown) (unknown) (no (unknown) (unknown) the last 1 week. (units (unknown) date) She says she has unknown) been taking ibuprofen pretty much around the (unknown) (no (unknown) (unknown) time is not (units (un known) date) convinced that it unknown) is multiple sclerosis. It does not make sense it (unknown) (no (unknown) (unknown) to the (units (unkno wn) date) unknown) (unknown) (no (unknown) (unknown) ventricles.? The (units (unknown) date) unknown) (unknown) (no (unknown) (unknown) vertex, with (units (u nknown) date) coronal and unknown) sagittal reformats.? For radiation dose reduction, the (unknown) (no (unknown) (unknown) vessel ischemic (units (unknown) date) change secondary unknown) to migraines.? Of note, there are no signal (unknown) (no (unknown) (unknown) was recommended (units (unknown) date) she an MRI. MRI unknown) also shows the same possible demyelinating (unknown) (no (unknown) (unknown) was used:? (units (unk nown) date) automated exposure unknown) control, adjustment of mA and/or kV according to (unknown) (no (unknown) (unknown) will need to be (units (unknown) date) through your unknown) provider. (unknown) (no (unknown) (unknown) without any sort (units (unknown) date) of difficulty. unknown) Social History No information. Vital Signs No information.
--- NOTE | 2022-03-14 17:18 | ED Physician Documentation ---
History of Present Illness - Stated complaint Stated Complaint: SOA, CHEST PX - Chief complaint Chief Complaint: Cardiac - Additonal information Additional information: 22-year-old female presents emergency department for evaluation of 2 days substernal chest pain. Reports it hurts every time she takes a deep breath or lays flat. She thought perhaps she had COVID but tested negative. She states last week she had a minor cold. She not having any fevers. This morning she nearly fainted thus she comes to the emergency department. Patient states that sometimes when she swallows she feels pain in her chest. She does take OCP use but no tobacco use. No personal or family history of DVT. No unilateral leg swelling, immobilization recent surgery. No recent travel. Review of Systems Constitutional: denies: Fever, Chills Nose: reports: Congestion Throat: denies: Dental pain / toothache, Oral lesions / sores Cardiac: reports: Chest pain / pressure. denies: Palpitations, Pedal edema, Calf pain Respiratory: denies: Dyspnea, Cough, Hemoptysis, Wheezing GI: reports: Reviewed and negative : reports: Reviewed and negative Skin: reports: Reviewed and negative Musculoskeletal: reports: Reviewed and negative PD PAST MEDICAL HISTORY - Past Medical History Cardiovascular: None Respiratory: None Neuro: Other Endocrine/Autoimmune: None Psych: None Musculoskeletal: None - Past Surgical History Past Surgical History: Yes - Present Medications Home Medications: Ambulatory Orders Medication Instructions Recorded Confirmed Promethazine [Phenergan] 25 mg PO Q6H PRN #10 tab 03/10/22 03/14/22 Sumatriptan Succinate [Imitrex] 50 mg PO DAILY PRN #20 tablet 03/10/22 03/14/22 - Allergies Allergies/Adverse Reactions: Allergies Allergy/AdvReac Type Severity Reaction Status Date / Time No Known Drug Allergies Allergy Verified 03/14/22 16:21 - Social History Does the pt smoke?: No Smoking Status: Never smoker Does the pt drink ETOH?: No Does the pt have substance abuse?: No - Immunizations Immunizations are current?: Yes - POLST Patient has POLST: No PD ED PE NORMAL - General General: Alert and oriented X 3, No acute distress. 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 Eye Opening: Spontaneous Motor: Obeys Commands Verbal: Oriented GCS Score: 15 Results - Vitals Vitals: Vital Signs - 24 hr 03/14/22 03/14/22 16:18 17:19 Temperature 36.7 C Heart Rate 96 Heart Rate [ 90 Sitting] Heart Rate [ 95 Standing] Heart Rate [ 89 Supine] Respiratory 16 Rate Blood Pressure 161/84 H Blood Pressure 131/74 H [Sitting] Blood Pressure 130/76 [Standing] Blood Pressure 124/65 [Supine] O2 Saturation 98 Oxygen O2 Source Room air - EKG (time done) 1616 Rate: Rate (enter#) (97) Rhythm: NSR [place]: Normal Intervals: Normal [place] QRS: Normal Ischemia: Non specific changes Compare to prior EKG: Old EKG unavailable Computer interpretation: Agree with computer - Labs Labs: Laboratory Tests 03/14/22 03/14/22 03/14/22 17:23 17:23 17:23 WBC 10.0 RBC 4.87 Hgb 14.3 Hct 42.5 MCV 87.3 MCH 29.4 MCHC 33.6 RDW 12.9 Plt Count 314 MPV 10.3 Neut # (Auto) 7.1 H Lymph # (Auto) 2.3 [place] # (Auto) 0.5 Eos # (Auto) 0.0 Baso # (Auto) 0.0 Absolute Nucleated RBC 0.00 Nucleated RBC % 0.0 Sodium 137 Potassium 3.8 Chloride 104 Carbon Dioxide 22 Anion Gap 11.0 BUN 17 Creatinine 0.6 Estimated GFR (MDRD) 126 Glucose 92 Calcium 9.7 Serum HCG, Qual NEGATIVE - Rads (name of study) cxr Radiology: Final report received (No acute cardiopulmonary process) PD MEDICAL DECISION MAKING - ED course Complexity details: reviewed results, re-evaluated patient, considered differential, d/w patient ED course: 22-year-old female presents emergency department for evaluation of 2 days substernal chest pain. Reports that she had a cough last week some congestion. No nausea or vomiting. She was lightheaded at work therefore she presents to the ER today. Screening EKG is nonischemic. By Wells criteria low risk for PE. X-rays without acute focal findings. CBC and electrolytes were also unremarkable for age. While here in the emergency department she has remained on the registered nurse cardiac without any abnormal arrhythmia. Vital signs are stable. Negative orthostatics. At this time stable for discharge home. Advise close follow-up with primary care provider. Emergent return precautions otherwise discussed Departure - Departure Disposition: Home, Self Care Clinical Impression: Chest pain Qualifiers: Chest pain type: unspecified Qualified Code(s): R07.9 - Chest pain, unspecified Condition: Stable Record reviewed to determine appropriate education?: Yes Comments: You are seen today in the emergency department for some chest pain. Screening EKG is normal. Your vital signs have also been normal. Your chest x-ray was normal. Your blood count and electrolytes were normal. Cause of your symptoms is not clear though it could be some congestion or simple fatigue. I encourage you to stay well-hydrated over the next 24 to 48 hours. Discussed this ED visit with your primary care doctor. If at any point you have fainting episodes severe shortness of air then do not hesitate to return to the ER for second evaluation.
[2022-03-14 17:38] LABS: BASOPHILS % (AUTO) 0.3 %; EOSINOPHILS % (AUTO) 0.3 %; HCT - HEMATOCRIT 42.5 % (37.0-47.0); HGB - HEMOGLOBIN 14.3 g/dL (12.0-16.0); LYMPHOCYTES # (AUTO) 2.3 10^3/uL (1.5-3.5); LYMPHOCYTES % (AUTO) 22.5 %; MEAN CORPUSCULAR HEMOGLOBIN 29.4 pg (27.0-31.0); MEAN CORPUSCULAR HGB CONC 33.6 g/dL (32.0-36.0); MEAN CORPUSCULAR VOLUME 87.3 fL (81.0-99.0); MEAN PLATELET VOLUME 10.3 fL (7.9-10.8); MONOCYTES # (AUTO) 0.5 10^3/uL (0.0-1.0); MONOCYTES % (AUTO) 5.2 %; NEUTROPHILS # (AUTO) 7.1 10^3/uL (1.5-6.6); NEUTROPHILS % (AUTO) 71.5 %; PLT - PLATELET COUNT 314 10^3/uL (130-450); RED BLOOD COUNT 4.87 10^6/uL (4.20-5.40); RED CELL DISTRIBUTION WIDTH 12.9 % (12.0-15.0)
--- NOTE | 2022-03-14 17:52 | XRAY Report ---
PROCEDURE: Chest 1 View X-Ray INDICATIONS: chest pain COMMENTS: UPPER LEFT CHEST PAIN. NKI. SOB PRIORS: 03.31.21 TECHNIQUE: One view of the chest was acquired. COMPARISON: CT chest 03/31/2021 FINDINGS: Surgical changes and devices: None. Lungs and pleura: No pleural effusions or pneumothorax. Lungs are clear. Mediastinum: Mediastinal contours appear normal. Heart size is normal. Bones and chest wall: No suspicious bony lesions. Overlying soft tissues appear unremarkable. IMPRESSION: No acute cardiopulmonary abnormality. Reviewed by: Catalino Cast on 03/14/2022 5:51 PM PDT Approved by: Catalino Cast on 03/14/2022 5:51 PM PDT Station ID: [id number]
[2022-03-14 18:02] LABS: HCG,QUALITATIVE BLOOD NEGATIVE
[2022-03-14 18:06] LABS: CALCIUM 9.7 mg/dL (8.5-10.3); CREATININE 0.6 mg/dL (0.4-1.0); POTASSIUM 3.8 mmol/L (3.5-5.0)
[2022-03-14 19:19] VITALS: BP 124/81
== END 2022-03-14 19:18 | disposition home or self-care (01) ==
LOC: ED 16:13
DX: R07.89 Other chest pain (principal)
CPT/HCPCS: 36415; 80048; 84703; 85025; 93005; 99284

== ENCOUNTER 2022-06-02 16:22 | Emergency (ER) | payer MEDICAID ==
[2022-06-02 16:52] LABS: BASOPHILS % (AUTO) 0.3 %; EOSINOPHILS % (AUTO) 0.1 %; HCT - HEMATOCRIT 45.1 % (37.0-47.0); HGB - HEMOGLOBIN 14.8 g/dL (12.0-16.0); LYMPHOCYTES # (AUTO) 1.8 10^3/uL (1.5-3.5); LYMPHOCYTES % (AUTO) 13.5 %; MEAN CORPUSCULAR HEMOGLOBIN 28.6 pg (27.0-31.0); MEAN CORPUSCULAR HGB CONC 32.8 g/dL (32.0-36.0); MEAN CORPUSCULAR VOLUME 87.1 fL (81.0-99.0); MEAN PLATELET VOLUME 9.8 fL (7.9-10.8); MONOCYTES # (AUTO) 0.6 10^3/uL (0.0-1.0); MONOCYTES % (AUTO) 4.2 %; NEUTROPHILS % (AUTO) 81.4 %; PLT - PLATELET COUNT 345 10^3/uL (130-450); RED BLOOD COUNT 5.18 10^6/uL (4.20-5.40); RED CELL DISTRIBUTION WIDTH 12.9 % (12.0-15.0); WHITE BLOOD COUNT 13.5 x10^3/uL (4.8-10.8)
[2022-06-02 17:04] LABS: ALBUMIN 4.5 g/dL (3.2-5.5); ALBUMIN/GLOBULIN RATIO 1.1 (1.0-2.2); BILIRUBIN,TOTAL 0.4 mg/dL (0.2-1.0); CALCIUM 10.2 mg/dL (8.5-10.3); CREATININE 0.6 mg/dL (0.4-1.0); TOTAL PROTEIN 8.6 g/dL (6.7-8.2)
--- NOTE | 2022-06-02 17:19 | XRAY Report ---
PROCEDURE: Chest 1 View X-Ray INDICATIONS: Chest pain TECHNIQUE: One view of the chest was acquired. COMPARISON: None. FINDINGS: Surgical changes and devices: None. Lungs and pleura: No pleural effusions or pneumothorax. Lungs are clear. Mediastinum: Mediastinal contours appear normal. Heart size is normal. Bones and chest wall: No suspicious bony lesions. Overlying soft tissues appear unremarkable. IMPRESSION: No acute cardiopulmonary abnormality. Reviewed by: Catalino Cast on 06/02/2022 5:18 PM [facility] Approved by: Catalino Cast on 06/02/2022 5:18 PM [facility] Station ID: [id number]
[2022-06-02] MEDS ORDERED: MELOXICAM 7.5 MG TABLET PO STA (19:22)
--- NOTE | 2022-06-02 19:25 | ED Physician Documentation ---
History of Present Illness - Stated complaint Stated Complaint: CHEST PX, PRESSURE - Chief complaint Chief Complaint: Cardiac - History obtained from History obtained from: Patient - History of Present Illness Timing: How many hours ago (5) Pain level max: 8 Pain level now: 3 - Additonal information Additional information: Patient is a 22-year-old female who presents to the emergency department with chest pain. She states that this started about 5 hours prior to arrival. She states it felt like a pressure in her chest. Nothing made it better or worse. She had mild nausea as well. Symptoms have improved. Still has mild pain. She states that she was exposed to COVID about a week ago. Has taken 2 negative test and is requesting a COVID test. Review of Systems Ten Systems: 10 systems reviewed and negative Constitutional: denies: Fever, Chills Ears: denies: Ear pain Nose: denies: Rhinorrhea / runny nose, Congestion Throat: denies: Sore throat Cardiac: denies: Palpitations Respiratory: denies: Dyspnea, Cough GI: denies: Vomiting, Diarrhea Skin: denies: Rash Musculoskeletal: denies: Neck pain, Back pain Neurologic: denies: Headache PD PAST MEDICAL HISTORY - Past Medical History Cardiovascular: None Respiratory: None Neuro: Other Endocrine/Autoimmune: None Psych: None Musculoskeletal: None - Past Surgical History Past Surgical History: Yes - Present Medications Home Medications: Ambulatory Orders Medication Instructions Recorded Confirmed Promethazine [Phenergan] 25 mg PO Q6H PRN #10 tab 03/10/22 03/14/22 Sumatriptan Succinate [Imitrex] 50 mg PO DAILY PRN #20 tablet 03/10/22 03/14/22 - Allergies Allergies/Adverse Reactions: Allergies Allergy/AdvReac Type Severity Reaction Status Date / Time No Known Drug Allergies Allergy Verified 03/14/22 16:21 - Social History Does the pt smoke?: No Smoking Status: Never smoker Does the pt drink ETOH?: No Does the pt have substance abuse?: No - Immunizations Immunizations are current?: Yes - POLST Patient has POLST: No PD ED PE NORMAL - Vitals Vital signs reviewed: Yes - General General: Alert and oriented X 3, No acute distress - HEENT HEENT: PERRL - Neck Neck: Supple, no meningeal sign, No bony TTP, No JVD, No bruit - Cardiac Cardiac: RRR, No murmur, Strong equal pulses, Other (No chest wall tenderness) - Respiratory Respiratory: No respiratory distress, Clear bilaterally - Abdomen Abdomen: Soft, Non tender, Non distended - Derm Derm: Warm and dry - Extremities Extremities: No edema, No calf tenderness / cord - Neuro Neuro: Alert and oriented X 3 - Psych Psych: Normal mood, Normal affect Results - Vitals Vitals: Vital Signs - 24 hr 06/02/22 06/02/22 06/02/22 16:37 18:35 19:32 Temperature 37.0 C Heart Rate 111 H 91 89 Respiratory 22 12 16 Rate Blood Pressure 171/109 H 158/84 H 148/104 H O2 Saturation 98 99 98 Oxygen O2 Source Room air - EKG (time done) 1639 Rate: Rate (enter#) (107) Rhythm: Sinus tachycardia [place]: Normal Intervals: Normal [place] QRS: Normal Ischemia: Other (Flattened T waves) - Labs Labs: Laboratory Tests 06/02/22 06/02/22 06/02/22 16:41 16:41 16:41 WBC 13.5 H RBC 5.18 Hgb 14.8 Hct 45.1 MCV 87.1 MCH 28.6 MCHC 32.8 RDW 12.9 Plt Count 345 MPV 9.8 Neut # (Auto) 11.0 H Lymph # (Auto) 1.8 [place] # (Auto) 0.6 Eos # (Auto) 0.0 Baso # (Auto) 0.0 Absolute Nucleated RBC 0.00 Nucleated RBC % 0.0 Sodium 139 Potassium 4.0 Chloride 104 Carbon Dioxide 25 Anion Gap 10.0 BUN 16 Creatinine 0.6 Estimated GFR (MDRD) 126 Glucose 97 Calcium 10.2 Total Bilirubin 0.4 AST 18 ALT 18 Alkaline Phosphatase 90 Troponin I High Sens < 2.3 L Total Protein 8.6 H Albumin 4.5 Globulin 4.1 Albumin/Globulin Ratio 1.1 Lipase 29 - Rads (name of study) Chest x-ray Radiology: Final report received, EMP read contemporaneously, See rad report (No acute abnormality) PD MEDICAL DECISION MAKING - ED course Complexity details: reviewed results, re-evaluated patient, considered differential (No ST elevation AR, no aortic dissection, no PE, no tension pneumothorax, no aortic aneurysm), d/w patient ED course: Patient with chest pain earlier today of unclear etiology. Patient is well- appearing, nontoxic. Afebrile. No calf swelling or tenderness. No history of DVT. Clinically not consistent with PE. Chest x-ray is negative. Laboratory testing is normal. COVID testing was performed. No evidence of acute coronary syndrome, myocarditis, pericarditis. We will have her follow-up with her doctor for further care. Patient counseled regarding signs and symptoms for which I believe and urgent re-evaluation would be necessary. Patient with good understanding of and agreement to plan and is comfortable going home at this time This document was made in part using voice recognition software. While efforts are made to proofread this document, sound alike and grammatical errors may occur. Departure - Departure Disposition: 01 Home, Self Care Clinical Impression: Atypical chest pain Condition: Good Instructions: ED Chest Pain Atypical Unkn Cause Follow-Up: Marilou Mcintosh ARNP [Primary Care Provider] - Within 1 week Comments: Please follow-up with your doctor for further care. Your testing does not show any acute abnormalities today. I would use Motrin or Tylenol as needed for pain. Discharge Date/Time: 06/02/22 19:32
[2022-06-02 19:33] VITALS: BP 148/104
== END 2022-06-02 19:32 | disposition home or self-care (01) ==
LOC: ED 16:22
DX: R07.89 Other chest pain (principal)
CPT/HCPCS: 36415; 71045; 80053; 83690; 84484; 85025; 87635; 93005; 99284; A9270

== ENCOUNTER 2022-06-08 18:08 | Emergency (ER) | payer MEDICAID ==
[2022-06-08 18:53] LABS: BASOPHILS % (AUTO) 0.3 %; EOSINOPHILS # (AUTO) 0.1 10^3/uL (0.0-0.7); EOSINOPHILS % (AUTO) 1.2 %; HCT - HEMATOCRIT 46.4 % (37.0-47.0); HGB - HEMOGLOBIN 14.8 g/dL (12.0-16.0); LYMPHOCYTES # (AUTO) 3.2 10^3/uL (1.5-3.5); LYMPHOCYTES % (AUTO) 30.8 %; MEAN CORPUSCULAR HEMOGLOBIN 28.1 pg (27.0-31.0); MEAN CORPUSCULAR HGB CONC 31.9 g/dL (32.0-36.0); MONOCYTES # (AUTO) 0.6 10^3/uL (0.0-1.0); MONOCYTES % (AUTO) 5.5 %; NEUTROPHILS # (AUTO) 6.5 10^3/uL (1.5-6.6); NEUTROPHILS % (AUTO) 61.8 %; PLT - PLATELET COUNT 339 10^3/uL (130-450); RED BLOOD COUNT 5.27 10^6/uL (4.20-5.40); RED CELL DISTRIBUTION WIDTH 12.9 % (12.0-15.0); WHITE BLOOD COUNT 10.5 x10^3/uL (4.8-10.8)
[2022-06-08 18:59] LABS: BILIRUBIN,URINE NEGATIVE (NEGATIVE); GLUCOSE, URINE (UA) NEGATIVE (NEGATIVE); KETONES,URINE (UA) NEGATIVE (NEGATIVE); LEUKOCYTE ESTERASE, URINE TRACE (NEGATIVE); NITRITE,URINE NEGATIVE (NEGATIVE); OCCULT BLOOD,URINE NEGATIVE (NEGATIVE); PH,URINE 6.5 PH (5.0-7.5); PROTEIN,URINE NEGATIVE (NEGATIVE); UROBILINOGEN,URINE 0.2 (NORMAL) E.U./dL (NORMAL)
[2022-06-08 19:00] LABS: CLARITY,URINE SL. CLOUDY (CLEAR); HCG UR QUAL NEGATIVE
[2022-06-08 19:06] LABS: BACTERIA,URINE Few /HPF (None Seen); RBC,URINE None Seen /HPF (0-5); SQUAMOUS EPITHELIAL CELL,UR MANY Squamous (<= Few)
[2022-06-08 19:07] LABS: ALBUMIN 4.8 g/dL (3.2-5.5); ALBUMIN/GLOBULIN RATIO 1.3 (1.0-2.2); BILIRUBIN,TOTAL 0.3 mg/dL (0.2-1.0); CALCIUM 10.1 mg/dL (8.5-10.3); CREATININE 0.7 mg/dL (0.4-1.0); TOTAL PROTEIN 8.4 g/dL (6.7-8.2)
--- NOTE | 2022-06-08 19:13 | ED Physician Documentation ---
History of Present Illness - Stated complaint Stated Complaint: ABD PX,CHEST DISCOMFORT - Chief complaint Chief Complaint: Abd Pain - History obtained from History obtained from: Patient - History of Present Illness Timing: How many days ago (2-3) Improved by: no ameliorating factors Worsened by: PO intake - Additonal information Additional information: c/o low midline chest pain, upper abdominal pain radiating around both flanks to back, episodic x 2-3 days , worse with eating. T+R from this ED 06/02/22 after cardiac-oriented work-up (no diagnostic nor concerning findings). Patient has no h/o heart problems including CAD Review of Systems Constitutional: reports: Fatigue. denies: Fever Cardiac: reports: Chest pain / pressure. denies: Palpitations, Pedal edema Respiratory: reports: Reviewed and negative GI: reports: Abdominal Pain, Nausea. denies: Vomiting, Constipation, Diarrhea : denies: Dysuria, Frequency, Now EGA PD PAST MEDICAL HISTORY - Past Medical History Cardiovascular: None Respiratory: None Neuro: Other Endocrine/Autoimmune: None Psych: None Musculoskeletal: None - Past Surgical History Past Surgical History: Yes - Present Medications Home Medications: Ambulatory Orders Medication Instructions Recorded Confirmed Lidocaine Viscous 2% [Xylocaine 15 ml PO Q4H PRN #100 ml 06/08/22 Viscous 2%] Omeprazole 40 mg PO DAILY #14 cap 06/08/22 Ondansetron HCl 4 mg PO Q4HR PRN 06/08/22 06/08/22 - Allergies Allergies/Adverse Reactions: Allergies Allergy/AdvReac Type Severity Reaction Status Date / Time No Known Drug Allergies Allergy Verified 06/08/22 18:17 - Social History Does the pt smoke?: No Smoking Status: Never smoker Does the pt drink ETOH?: No Does the pt have substance abuse?: No - Immunizations Immunizations are current?: Yes - POLST Patient has POLST: No PD ED PE NORMAL - Vitals Vital signs reviewed: Yes - General General: Alert and oriented X 3, No acute distress, Well developed/nourished - Cardiac Cardiac: RRR, No murmur - Respiratory Respiratory: No respiratory distress, Clear bilaterally - Abdomen Abdomen: Soft, Non distended, Other (mild TTP RUQ and epigastrium without rebound or guarding) - Back Back: No CVA TTP Results - Vitals Vitals: Oxygen O2 Source Room air - Labs Labs: Laboratory Tests 06/08/22 06/08/22 06/08/22 18:48 18:48 18:53 WBC 10.5 RBC 5.27 Hgb 14.8 Hct 46.4 MCV 88.0 MCH 28.1 MCHC 31.9 L RDW 12.9 Plt Count 339 MPV 10.0 Neut # (Auto) 6.5 Lymph # (Auto) 3.2 [place] # (Auto) 0.6 Eos # (Auto) 0.1 Baso # (Auto) 0.0 Absolute Nucleated RBC 0.00 Nucleated RBC % 0.0 Sodium 141 Potassium 4.0 Chloride 104 Carbon Dioxide 25 Anion Gap 12.0 BUN 22 H Creatinine 0.7 Estimated GFR (MDRD) 106 Glucose 104 H Calcium 10.1 Total Bilirubin 0.3 AST 18 ALT 20 Alkaline Phosphatase 80 Total Protein 8.4 H Albumin 4.8 Globulin 3.6 Albumin/Globulin Ratio 1.3 Lipase 34 Urine Color YELLOW Urine Clarity SL. CLOUDY Urine pH 6.5 Ur Specific [place] 1.025 Urine Protein NEGATIVE Urine Glucose (UA) NEGATIVE Urine Ketones NEGATIVE Urine Occult Blood NEGATIVE Urine Nitrite NEGATIVE Urine Bilirubin NEGATIVE Urine Urobilinogen 0.2 (NORMAL) Ur Leukocyte Esterase TRACE H Urine RBC None Seen Urine WBC 6-10 H Ur Squamous Epith Cells MANY Squamous H Urine Bacteria Few Ur Microscopic Review INDICATED Urine Culture Comments NOT INDICATED Urine HCG, Qual NEGATIVE PD MEDICAL DECISION MAKING - ED course Complexity details: reviewed old records, reviewed results, re-evaluated patient, considered differential, d/w patient ED course: unremarkable blood test results tonight (normal CBC, mildly elevated bun/creatinine ratio (bun 22, creatinine 0.7), normal LFTs, urine HCG negative). Differential diagnosis includes biliary colic, gastritic, PUD. She is given PO protonix, lidocaine and maalox, and she reports significant improvement on reevaluation. I performed a bedside RUQ US and there appear to be several small mobile gallstones in gallbladder that is not distended. Negative sonographic Qureshi's sign. Ultrasound is not in house at this time and so confirmatory study can be performed in outpatient setting if needed. I advised her to follow up with her primary care provider, return precautions were discussed. Departure - Departure Disposition: 01 Home, Self Care Clinical Impression: Abdominal pain Qualifiers: Abdominal location: upper abdomen, unspecified Qualified Code(s): R10.10 - Upper abdominal pain, unspecified Condition: Good Instructions: ED Abdominal Pain Female Non-Specific Abdominal Pain, ED Abdominal Pain Gallstone Poss, ED PUD Vs Gastritis Follow-Up: Godwin Sanchez MD [Provider Admit Priv/Credential] - Prescriptions: Omeprazole 40 mg PO DAILY #14 cap Lidocaine Viscous 2% [Xylocaine Viscous 2%] 15 ml PO Q4H PRN #100 ml PRN Reason: Abdominal Pain Comments: Your blood tests and urinalysis results were unremarkable. I note a few small gallstones on the ultrasound at bedside that I performed on your gallbladder. As we discussed, these might be incidental (not causing your pain), although the location and description of symptoms would be consistent with biliary colic (pain from gallstones). I would also heavily consider gastritis/stomach ulcer based on location and description of symptoms. I recommend following up with your primary care provider for reevaluation and referrals as appropriate (such as to gastroenterology, general surgery, further testing such as upper endoscopy). Prescriptions for lidocaine (numbing medication for the stomach) and prilosec (acid sendy) have been electronically submitted to [facility] pharmacy in [place] Discharge Date/Time: 06/08/22 20:26
[2022-06-08] MEDS: MAG HYDROX/AL HYDROX/SIMETH 30 ML UDC PO STA (19:14)
[2022-06-08] MEDS: LIDOCAINE VISCOUS 2% 15 ML UDC MM STA (19:14)
[2022-06-08] MEDS: PANTOPRAZOLE 40 MG TABLET PO STA (20:25)
[2022-06-08 20:27] VITALS: BP 156/73
== END 2022-06-08 20:26 | disposition home or self-care (01) ==
LOC: ED 18:08
DX: R10.10 Upper abdominal pain, unspecified (principal)
CPT/HCPCS: 36415; 80053; 81001; 81025; 83690; 85025; 99283; A9270; 81003; 87086

== ENCOUNTER 2022-06-19 18:58 | Outpatient (CLI) | payer MEDICAID ==
--- NOTE | 2022-06-20 11:03 | Ultrasound Report ---
PROCEDURE: Abdomen Complete INDICATIONS: ABD PAIN TECHNIQUE: Real-time scanning was performed of the abdominal and retroperitoneal organs, with image documentatio n. COMPARISON: None. FINDINGS: Liver: Liver is normal in size and homogeneous in echotexture. Gallbladder: Shadowing gallstones with no wall thickening or pericholecystic fluid. Biliary ducts: Nondilated. Pancreas: Visualized portions of the pancreas are sonographically normal. Spleen: Spleen is normal in size and homogeneous in echotexture. Kidneys: Normal. Aorta: Visualized aorta is normal in caliber at less than 3 cm. Iliacs: Proximal common iliac arteries are normal in caliber at less than 2.5 cm. IVC: Intrahepatic inferior vena cava is patent. Miscellaneous: No free abdominal fluid. IMPRESSION: Cholelithiasis without findings of cholecystitis. Reviewed by: Pillo Ayala MD on 06/20/2022 10:02 AM [facility] Approved by: Pillo Ayala MD on 06/20/2022 10:02 AM [facility] Station ID: [id number]
== END 2022-06-19 18:59 | disposition home or self-care (01) ==
LOC: DI 18:58
PROVIDERS: ATTEND Nurse Practitioner
DX: K80.20 Calculus of gallbladder without cholecystitis without obstruction (principal)

== ENCOUNTER 2022-12-30 19:40 | Emergency (ER) | payer MEDICAID ==
[2022-12-30 20:17] LABS: BASOPHILS # (AUTO) 0.1 10^3/uL (0.0-0.1); BASOPHILS % (AUTO) 0.3 %; EOSINOPHILS % (AUTO) 0.2 %; HCT - HEMATOCRIT 47.6 % (37.0-47.0); HGB - HEMOGLOBIN 15.4 g/dL (12.0-16.0); LYMPHOCYTES # (AUTO) 1.9 10^3/uL (1.5-3.5); LYMPHOCYTES % (AUTO) 12.5 %; MEAN CORPUSCULAR HEMOGLOBIN 28.6 pg (27.0-31.0); MEAN CORPUSCULAR HGB CONC 32.4 g/dL (32.0-36.0); MEAN CORPUSCULAR VOLUME 88.5 fL (81.0-99.0); MEAN PLATELET VOLUME 10.2 fL (7.9-10.8); MONOCYTES # (AUTO) 0.6 10^3/uL (0.0-1.0); MONOCYTES % (AUTO) 4.2 %; NEUTROPHILS # (AUTO) 12.4 10^3/uL (1.5-6.6); NEUTROPHILS % (AUTO) 82.5 %; PLT - PLATELET COUNT 345 10^3/uL (130-450); RED BLOOD COUNT 5.38 10^6/uL (4.20-5.40); WHITE BLOOD COUNT 15.1 x10^3/uL (4.8-10.8)
[2022-12-30 20:33] LABS: ALBUMIN 4.5 g/dL (3.2-5.5); ALBUMIN/GLOBULIN RATIO 1.3 (1.0-2.2); BILIRUBIN,TOTAL 0.4 mg/dL (0.2-1.0); CALCIUM 9.3 mg/dL (8.5-10.3); CREATININE 0.6 mg/dL (0.4-1.0); POTASSIUM 3.8 mmol/L (3.5-5.0); TOTAL PROTEIN 8.1 g/dL (6.7-8.2)
--- OUTSIDE RECORDS SUMMARY | 2022-12-30 20:56 | EXTERNAL MEDICAL SUMMARY RPT | Continuity of Care Document ---
Author Name Unknown Address [address] [place] [address] Phone Organization [facility] Address [address] [place] [address] Phone Care Team Providers Care Boat Assembler Name Role Phone Patricia Johnson Unavailable Unavailable Allergies and Intolerances date description facility type (no date) No Known Drug Allergies [facility] ( unknown) Medications date description facility 2022-11-25 00:00 Ondansetron [facility] 2022-11-25 00:00 Benzonatate [facility] Problems date description facility 2022-11-25 00:00 Upper respiratory tract infecti [facility] Results/Labs test date author facility value unit interpretation Result panel 1 (unknown) (no date) (unknown) [facility] (no value) (units unknown) (unknown) Result panel 2 (unknown) (no date) (unknown) [facility] (no value) (units unknown) (unknown) Result panel 3 (unknown) (no date) (unknown) [facility] (no value) (units unknown) (unknown) Result panel 4 (unknown) (no date) (unknown) [facility] (no value) (units unknown) (unknown) Result panel 5 (unknown) (no date) (unknown) [facility] (no value) (units unknown) (unknown) Result panel 6 (unknown) (no date) (unknown) [facility] (no value) (units unknown) (unknown) Result panel 7 (unknown) (no date) (unknown) [facility] (no value) (units unknown) (unknown) Result panel 8 (unknown) (no date) (unknown) [facility] (no value) (units unknown) (unknown) Result panel 9 (unknown) (no date) (unknown) [facility] (no value) (units unknown) (unknown) Result panel 10 (unknown) (no date) (unknown) [facility] (no value) (units unknown) (unknown) Result panel 11 (unknown) (no date) (unknown) [facility] (no value) (units unknown) (unknown) Result panel 12 (unknown) (no date) (unknown) [facility] (no value) (units unknown) (unknown) Result panel 13 (unknown) (no date) (unknown) [facility] (no value) (units unknown) (unknown) Result panel 14 (unknown) (no date) (unknown) [facility] (no value) (units unknown) (unknown) Result panel 15 (unknown) (no date) (unknown) [facility] (no value) (units unknown) (unknown) Result panel 16 (unknown) (no date) (unknown) [facility] (no value) (units unknown) (unknown) Result panel 17 (unknown) (no date) (unknown) [facility] (no value) (units unknown) (unknown) Result panel 18 (unknown) (no date) (unknown) [facility] (no value) (units unknown) (unknown) Result panel 19 (unknown) (no date) (unknown) [facility] (no value) (units unknown) (unknown) Result panel 20 (unknown) (no date) (unknown) [facility] (no value) (units unknown) (unknown) Result panel 21 (unknown) (no date) (unknown) [facility] (no value) (units unknown) (unknown) Result panel 22 (unknown) (no date) (unknown) [facility] (no value) (units unknown) (unknown) Result panel 23 (unknown) (no date) (unknown) [facility] (no value) (units unknown) (unknown) Result panel 24 (unknown) (no date) (unknown) [facility] (no value) (units unknown) (unknown) Result panel 25 (unknown) (no date) (unknown) [facility] (no value) (units unknown) (unknown) Result panel 26 (unknown) (no date) (unknown) [facility] (no value) (units unknown) (unknown) Result panel 27 (unknown) (no date) (unknown) [facility] (no value) (units unknown) (unknown) Result panel 28 (unknown) (no date) (unknown) [facility] (no value) (units unknown) (unknown) Result panel 29 (unknown) (no date) (unknown) [facility] (no value) (units unknown) (unknown) Result panel 30 (unknown) (no date) (unknown) [facility] (no value) (units unknown) (unknown) Result panel 31 (unknown) (no date) (unknown) [facility] (no value) (units unknown) (unknown) Result panel 32 (unknown) (no date) (unknown) [facility] (no value) (units unknown) (unknown) Result panel 33 (unknown) (no date) (unknown) [facility] (no value) (units unknown) (unknown) Result panel 34 (unknown) (no date) (unknown) [facility] (no value) (units unknown) (unknown) Result panel 35 (unknown) (no date) (unknown) [facility] (no value) (units unknown) (unknown) Result panel 36 (unknown) (no date) (unknown) [facility] (no value) (units unknown) (unknown) Result panel 37 (unknown) (no date) (unknown) [facility] (no value) (units unknown) (unknown) Result panel 38 (unknown) (no date) (unknown) [facility] (no value) (units unknown) (unknown) Result panel 39 (unknown) (no date) (unknown) [facility] (no value) (units unknown) (unknown) Result panel 40 (unknown) (no date) (unknown) [facility] (no value) (units unknown) (unknown) Result panel 41 (unknown) (no date) (unknown) [facility] (no value) (units unknown) (unknown) Result panel 42 (unknown) (no date) (unknown) [facility] (no value) (units unknown) (unknown) Result panel 43 (unknown) (no date) (unknown) [facility] (no value) (units unknown) (unknown) Result panel 44 (unknown) (no date) (unknown) [facility] (no value) (units unknown) (unknown) Result panel 45 (unknown) (no date) (unknown) [facility] (no value) (units unknown) (unknown) Result panel 46 (unknown) (no date) (unknown) [facility] (no value) (units unknown) (unknown) Result panel 47 (unknown) (no date) (unknown) [facility] (no value) (units unknown) (unknown) Result panel 48 (unknown) (no date) (unknown) [facility] (no value) (units unknown) (unknown) Result panel 49 (unknown) (no date) (unknown) [facility] (no value) (units unknown) (unknown) Result panel 50 (unknown) (no date) (unknown) [facility] (no value) (units unknown) (unknown) Result panel 51 (unknown) (no date) (unknown) [facility] (no value) (units unknown) (unknown) Result panel 52 (unknown) (no date) (unknown) [facility] (no value) (units unknown) (unknown) Result panel 53 (unknown) (no date) (unknown) [facility] (no value) (units unknown) (unknown) Result panel 54 (unknown) (no date) (unknown) [facility] (no value) (units unknown) (unknown) Result panel 55 (unknown) (no date) (unknown) [facility] (no value) (units unknown) (unknown) Result panel 56 (unknown) (no date) (unknown) [facility] (no value) (units unknown) (unknown) Result panel 57 (unknown) (no date) (unknown) [facility] (no value) (units unknown) (unknown) Result panel 58 (unknown) (no date) (unknown) [facility] (no value) (units unknown) (unknown) Result panel 59 (unknown) (no date) (unknown) [facility] (no value) (units unknown) (unknown) Result panel 60 (unknown) (no date) (unknown) [facility] (no value) (units unknown) (unknown) Result panel 61 (unknown) (no date) (unknown) [facility] (no value) (units unknown) (unknown) Result panel 62 (unknown) (no date) (unknown) [facility] (no value) (units unknown) (unknown) Result panel 63 (unknown) (no date) (unknown) [facility] (no value) (units unknown) (unknown) Result panel 64 (unknown) (no date) (unknown) [facility] (no value) (units unknown) (unknown) Result panel 65 (unknown) (no date) (unknown) [facility] (no value) (units unknown) (unknown) Result panel 66 (unknown) (no date) (unknown) [facility] (no value) (units unknown) (unknown) Result panel 67 (unknown) (no date) (unknown) [facility] (no value) (units unknown) (unknown) Result panel 68 (unknown) (no date) (unknown) [facility] (no value) (units unknown) (unknown) Result panel 69 (unknown) (no date) (unknown) [facility] (no value) (units unknown) (unknown) Result panel 70 (unknown) (no date) (unknown) [facility] (no value) (units unknown) (unknown) Result panel 71 (unknown) (no date) (unknown) [facility] (no value) (units unknown) (unknown) Result panel 72 (unknown) (no date) (unknown) [facility] (no value) (units unknown) (unknown) Result panel 73 (unknown) (no date) (unknown) [facility] (no value) (units unknown) (unknown) Result panel 74 (unknown) (no date) (unknown) [facility] (no value) (units unknown) (unknown) Result panel 75 (unknown) (no date) (unknown) [facility] (no value) (units unknown) (unknown) Result panel 76 (unknown) (no date) (unknown) [facility] (no value) (units unknown) (unknown) Result panel 77 (unknown) (no date) (unknown) [facility] (no value) (units unknown) (unknown) Result panel 78 (unknown) (no date) (unknown) [facility] (no value) (units unknown) (unknown) Result panel 79 (unknown) (no date) (unknown) [facility] (no value) (units unknown) (unknown) Result panel 80 (unknown) (no date) (unknown) [facility] (no value) (units unknown) (unknown) Result panel 81 (unknown) (no date) (unknown) (unknown) Detected (units unknown) (unknown) (unknown) (no date) (unknown) (unknown) Not Detected (units unknown) (unknown) (unknown) (no date) (unknown) (unknown) Not Detected (units unknown) (unknown) Result panel 82 (unknown) (no date) (unknown) (unknown) (no value) (units unknown) (unknown) (unknown) (no date) (unknown) (unknown) [id number] (units unknown) (unknown) (unknown) (no date) (unknown) (unknown) 11/25/22 15:54 (unit s unknown) (unknown) (unknown) (no date) (unknown) (unknown) 11/25/22 Range/Units (units unknown) (unknown) (unknown) (no date) (unknown) (unknown) 11/25/22 (units unknown) (unknown) (unknown) (no date) (unknown) (unknown) 1 tab PO Q6H P RN (Reason: pain) Qty: 10 0RF (units unknown) (unknown) (unknown) (no date) (unknown) (unknown) 15:38 11/25/22 (unit s unknown) (unknown) (unknown) (no date) (unknown) (unknown) 15:54 (units unknown) (unknown) (unknown) (no date) (unknown) (unknown) 16:38 11/25/22 (unit s unknown) (unknown) (unknown) (no date) (unknown) (unknown) 16:38 (units unknown) (unknown) (unknown) (no date) (unknown) (unknown) 17:00 11/25/22 (unit s unknown) (unknown) (unknown) (no date) (unknown) (unknown) 17:30 11/25/22 (unit s unknown) (unknown) (unknown) (no date) (unknown) (unknown) 17:31 (units unknown) (unknown) (unknown) (no date) (unknown) (unknown) 20 mg PO Q2-4H PRN (Reason: migraine headache) Qty: 7 0RF (units unknown) (unknown) (unknown) (no date) (unknown) (unknown) 200 mg PO TID PRN (Reason: cough) Qty: 30 0RF (units unknown) (unknown) (unknown) (no date) (unknown) (unknown) 22-year-old fe male with a history of migraines presents to the ED with 1 week of (units unknown) (unknown) (unknown) (no date) (unknown) (unknown) 4 mg PO Q8H MO N (Reason: nausea and vomiting) Qty: 14 0RF (units unknown) (unknown) (unknown) (no date) (unknown) (unknown) Activity Restrictions/Additio nal Instructions: (units unknown) (unknown) (unknown) (no date) (unknown) (unknown) Adenovirus (PC R) Not detected (Not Detect) (units unknown) (unknown) (unknown) (no date) (unknown) (unknown) Age/Sex: 22 / F (uni ts unknown) (unknown) (unknown) (no date) (unknown) (unknown) Allergies (units unknown) (unknown) (unknown) (no date) (unknown) (unknown) Allergy/AdvRea c Type Severity Reaction Status Date / Time (units unknown) (unknown) (unknown) (no date) (unknown) (unknown) B. pertussis D NA (PCR) Not detected (Not Detecte) (units unknown) (unknown) (unknown) (no date) (unknown) (unknown) B.parapertussi s DNA PCR Not detected (Not Detecte) (units unknown) (unknown) (unknown) (no date) (unknown) (unknown) Blood Pressure 120/50 L (units unknown) (unknown) (unknown) (no date) (unknown) (unknown) Blood Pressure 138/72 11/25/22 15:38 (units unknown) (unknown) (unknown) (no date) (unknown) (unknown) Blood Pressure 138/72 127/90 (units unknown) (unknown) (unknown) (no date) (unknown) (unknown) Blood Pressure (unit s unknown) (unknown) (unknown) (no date) (unknown) (unknown) Chief complain t: Upper Respiratory Symptoms (units unknown) (unknown) (unknown) (no date) (unknown) (unknown) Chlamy pneumon iae PCR Not detected (Not Detect) (units unknown) (unknown) (unknown) (no date) (unknown) (unknown) Clinical Impression: (units unknown) (unknown) (unknown) (no date) (unknown) (unknown) Coronavirus 22 9E (PCR) Not detected (Not Detect) (units unknown) (unknown) (unknown) (no date) (unknown) (unknown) Coronavirus HK U1 (PCR) Not detected (Not Detect) (units unknown) (unknown) (unknown) (no date) (unknown) (unknown) Coronavirus NL 63 (PCR) Not detected (Not Detect) (units unknown) (unknown) (unknown) (no date) (unknown) (unknown) Coronavirus OC 43 (PCR) Not detected (Not Detect) (units unknown) (unknown) (unknown) (no date) (unknown) (unknown) Course (units unknown) (unknown) (unknown) (no date) (unknown) (unknown) : 1 Acct:[id number] (units unknown) (unknown) (unknown) (no date) (unknown) (unknown) Date of Servic e: 11/25/22 (units unknown) (unknown) (unknown) (no date) (unknown) (unknown) Departure (units unknown) (unknown) (unknown) (no date) (unknown) (unknown) Discharge Plan (unit s unknown) (unknown) (unknown) (no date) (unknown) (unknown) ED Orders (units unknown) (unknown) (unknown) (no date) (unknown) (unknown) ER Physician: Jovana Love P.A-C (units unknown) (unknown) (unknown) (no date) (unknown) (unknown) Emergency Report (un its unknown) (unknown) (unknown) (no date) (unknown) (unknown) Entero/Rhino ( PCR) Detected H (Not Detect) (units unknown) (unknown) (unknown) (no date) (unknown) (unknown) Exam (units unknown) (unknown) (unknown) (no date) (unknown) (unknown) General (units unknown) (unknown) (unknown) (no date) (unknown) (unknown) HPI - General Adult (units unknown) (unknown) (unknown) (no date) (unknown) (unknown) HPI narrative: (unit s unknown) (unknown) (unknown) (no date) (unknown) (unknown) History of Pre sent Illness (units unknown) (unknown) (unknown) (no date) (unknown) (unknown) Human Metapneu movir PCR Not detected (Not Detect) (units unknown) (unknown) (unknown) (no date) (unknown) (unknown) Influenza Type A (PCR) Not detected (Not Detect) (units unknown) (unknown) (unknown) (no date) (unknown) (unknown) Influenza Type B (PCR) Not detected (Not Detect) (units unknown) (unknown) (unknown) (no date) (unknown) (unknown) Initial Vital Signs (units unknown) (unknown) (unknown) (no date) (unknown) (unknown) Initial Vital Signs: (units unknown) (unknown) (unknown) (no date) (unknown) (unknown) [address] [address] (units unknown) (unknown) (unknown) (no date) (unknown) (unknown) Lab Data (units unknown) (unknown) (unknown) (no date) (unknown) (unknown) Lab Results (units unknown) (unknown) (unknown) (no date) (unknown) (unknown) Labs: (units unknown) (unknown) (unknown) (no date) (unknown) (unknown) M. pneumoniae (PCR) Not detected (Not Detect) (units unknown) (unknown) (unknown) (no date) (unknown) (unknown) MDM Narrative (units unknown) (unknown) (unknown) (no date) (unknown) (unknown) Medical Decisi on Making (units unknown) (unknown) (unknown) (no date) (unknown) (unknown) Medical decisi on making narrative: (units unknown) (unknown) (unknown) (no date) (unknown) (unknown) Medication Instructions Recorded (units unknown) (unknown) (unknown) (no date) (unknown) (unknown) Mode of arriva l: Ambulatory (units unknown) (unknown) (unknown) (no date) (unknown) (unknown) New (units unknown) (unknown) (unknown) (no date) (unknown) (unknown) No Action (units unknown) (unknown) (unknown) (no date) (unknown) (unknown) No Known Drug Allergies Allergy Verified 02/09/22 13:07 (units unknown) (unknown) (unknown) (no date) (unknown) (unknown) Ordered: (units unknown) (unknown) (unknown) (no date) (unknown) (unknown) Orders (units unknown) (unknown) (unknown) (no date) (unknown) (unknown) Oxygen Deliver y Method Room Air 11/25/22 15:38 (units unknown) (unknown) (unknown) (no date) (unknown) (unknown) Oxygen Deliver y Method Room Air (units unknown) (unknown) (unknown) (no date) (unknown) (unknown) Oxygen Deliver y Method (units unknown) (unknown) (unknown) (no date) (unknown) (unknown) Parainfluenza 1 (PCR) Not detected (Not Detect) (units unknown) (unknown) (unknown) (no date) (unknown) (unknown) Parainfluenza 2 (PCR) Not detected (Not Detect) (units unknown) (unknown) (unknown) (no date) (unknown) (unknown) Parainfluenza 3 (PCR) Not detected (Not Detect) (units unknown) (unknown) (unknown) (no date) (unknown) (unknown) Parainfluenza 4 (PCR) Not detected (Not Detect) (units unknown) (unknown) (unknown) (no date) (unknown) (unknown) Patient Dispos ition: Home (units unknown) (unknown) (unknown) (no date) (unknown) (unknown) Patient History (uni ts unknown) (unknown) (unknown) (no date) (unknown) (unknown) Patient: Jessy Gudino MR#: [id number] (units unknown) (unknown) (unknown) (no date) (unknown) (unknown) Jeanette Epstein for symptoms. (units unknown) (unknown) (unknown) (no date) (unknown) (unknown) Posterior phar ynx is not erythematous, no exudates, no swelling. Patient's (units unknown) (unknown) (unknown) (no date) (unknown) (unknown) Prescriptions: (unit s unknown) (unknown) (unknown) (no date) (unknown) (unknown) Previous Rx's (units unknown) (unknown) (unknown) (no date) (unknown) (unknown) Pulse Oximetry 98 11/25/22 15:38 (units unknown) (unknown) (unknown) (no date) (unknown) (unknown) Pulse Oximetry 98 98 98 (units unknown) (unknown) (unknown) (no date) (unknown) (unknown) Pulse Oximetry 98 98 (units unknown) (unknown) (unknown) (no date) (unknown) (unknown) Pulse Oximetry (unit s unknown) (unknown) (unknown) (no date) (unknown) (unknown) Pulse Rate 68 11/25/22 15:38 (units unknown) (unknown) (unknown) (no date) (unknown) (unknown) Pulse Rate 68 84 (un its unknown) (unknown) (unknown) (no date) (unknown) (unknown) Pulse Rate 77 81 74 (units unknown) (unknown) (unknown) (no date) (unknown) (unknown) Pulse Rate (units unknown) (unknown) (unknown) (no date) (unknown) (unknown) RSV (PCR) Not detected (Not Detect) (units unknown) (unknown) (unknown) (no date) (unknown) (unknown) Related Data (units unknown) (unknown) (unknown) (no date) (unknown) (unknown) Respiratory Pa cecilia (Film Array) Stat (units unknown) (unknown) (unknown) (no date) (unknown) (unknown) Respiratory Ra te 18 11/25/22 15:38 (units unknown) (unknown) (unknown) (no date) (unknown) (unknown) Respiratory Rate 18 (units unknown) (unknown) (unknown) (no date) (unknown) (unknown) Respiratory Rate (un its unknown) (unknown) (unknown) (no date) (unknown) (unknown) Rx Instructions: (un its unknown) (unknown) (unknown) (no date) (unknown) (unknown) SARS-CoV-2 (PC R) Not detected (Not Detecte) (units unknown) (unknown) (unknown) (no date) (unknown) (unknown) Signed By: (units unknown) (unknown) (unknown) (no date) (unknown) (unknown) Smoking Status : Never smoker (units unknown) (unknown) (unknown) (no date) (unknown) (unknown) Social History (units unknown) (unknown) (unknown) (no date) (unknown) (unknown) Source: patient (uni ts unknown) (unknown) (unknown) (no date) (unknown) (unknown) Stand Alone Fo de: Patient Portal/API (units unknown) (unknown) (unknown) (no date) (unknown) (unknown) Stated complai nt: ears clogged, not eating, fever, cough, not sleepi (units unknown) (unknown) (unknown) (no date) (unknown) (unknown) Substance Use Type: marijuana (units unknown) (unknown) (unknown) (no date) (unknown) (unknown) Temperature 97 .7 F 11/25/22 15:38 (units unknown) (unknown) (unknown) (no date) (unknown) (unknown) Temperature 97.7 F ( units unknown) (unknown) (unknown) (no date) (unknown) (unknown) Temperature (units unknown) (unknown) (unknown) (no date) (unknown) (unknown) Time Seen by Provider: 11/25/22 16:52 (units unknown) (unknown) (unknown) (no date) (unknown) (unknown) Upper respirat ory infection (units unknown) (unknown) (unknown) (no date) (unknown) (unknown) Vital Signs - 8 hr ( units unknown) (unknown) (unknown) (no date) (unknown) (unknown) Vital Signs (units unknown) (unknown) (unknown) (no date) (unknown) (unknown) Vital signs: (units unknown) (unknown) (unknown) (no date) (unknown) (unknown) You were also being prescribed Zofran for nausea. Please continue to stay well (units unknown) (unknown) (unknown) (no date) (unknown) (unknown) You were evalu ated in the ED today for a sore throat, cough, ear pain. Your (units unknown) (unknown) (unknown) (no date) (unknown) (unknown) alcohol intake frequency: holidays/special occasions only (units unknown) (unknown) (unknown) (no date) (unknown) (unknown) antibiotics as prescribed since the antibiotics could have already started (units unknown) (unknown) (unknown) (no date) (unknown) (unknown) benzonatate 20 0 mg capsule 200 mg PO TID PRN cough #30 caps 11/25/22 (units unknown) (unknown) (unknown) (no date) (unknown) (unknown) benzonatate 20 0 mg capsule (units unknown) (unknown) (unknown) (no date) (unknown) (unknown) came to the ED since her symptoms were not improving. (units unknown) (unknown) (unknown) (no date) (unknown) (unknown) continue to ta ke Tylenol or ibuprofen for fevers, aches and pains. You may also (units unknown) (unknown) (unknown) (no date) (unknown) (unknown) diagnosed with a your infection and started Augmentin on 11/23/2022. Patient (units unknown) (unknown) (unknown) (no date) (unknown) (unknown) do not exceed 4 doses per 24 hrs (units unknown) (unknown) (unknown) (no date) (unknown) (unknown) eletriptan 20 mg tablet (Relpax) 20 mg PO Q2-4H PRN migraine 02/09/22 (units unknown) (unknown) (unknown) (no date) (unknown) (unknown) eletriptan [Re lpax] 20 mg tablet (units unknown) (unknown) (unknown) (no date) (unknown) (unknown) headache #7 tabs (un its unknown) (unknown) (unknown) (no date) (unknown) (unknown) hydrated. Plea se follow-up with your PCP as soon as possible. Return to the ED (units unknown) (unknown) (unknown) (no date) (unknown) (unknown) hydrocodone 5 mg-acetaminophen 325 1 tab PO Q6H PRN pain #10 tabs 02/09/22 (units unknown) (unknown) (unknown) (no date) (unknown) (unknown) hydrocodone-ac etamin ophen 5-325 mg tablet (units unknown) (unknown) (unknown) (no date) (unknown) (unknown) if you have ch est pain or trouble breathing. (units unknown) (unknown) (unknown) (no date) (unknown) (unknown) mg tablet (units unknown) (unknown) (unknown) (no date) (unknown) (unknown) nausea. Concer n for otitis media versus upper respiratory infection versus (units unknown) (unknown) (unknown) (no date) (unknown) (unknown) nausea. Patien t denies fever, chills, chest pain, shortness of breath, (units unknown) (unknown) (unknown) (no date) (unknown) (unknown) ondansetron 4 mg disintegrating 4 mg PO Q8H PRN nausea and 11/25/22 (units unknown) (unknown) (unknown) (no date) (unknown) (unknown) ondansetron 4 mg tablet,disintegratin g (units unknown) (unknown) (unknown) (no date) (unknown) (unknown) pharyngitis ve rsus other. Respiratory swab was positive for enterovirus/rhino (units unknown) (unknown) (unknown) (no date) (unknown) (unknown) resolving her infection. Recommend Flonase, Tylenol, ibuprofen, Tessalon (units unknown) (unknown) (unknown) (no date) (unknown) (unknown) respiratory pa cecilia was positive for enterovirus/rhino virus, which is basically (units unknown) (unknown) (unknown) (no date) (unknown) (unknown) symptoms are l ikely due to the URI. Recommend that patient continue her (units unknown) (unknown) (unknown) (no date) (unknown) (unknown) tablet vomitin g #14 tabs (units unknown) (unknown) (unknown) (no date) (unknown) (unknown) take Flonase w hich is [id number] for nasal congestion and ear congestion. (units unknown) (unknown) (unknown) (no date) (unknown) (unknown) that you alrea dy started. You may take Tessalon Perles for the cough. You can (units unknown) (unknown) (unknown) (no date) (unknown) (unknown) the cold virus . It is common for upper respiratory viral infections to run (units unknown) (unknown) (unknown) (no date) (unknown) (unknown) their course f or 1-2 weeks. You may complete the full course of antibiotics (units unknown) (unknown) (unknown) (no date) (unknown) (unknown) upper respirat ory symptoms including ear fullness, ear pain, sore throat, cough, (units unknown) (unknown) (unknown) (no date) (unknown) (unknown) virus. Physica l exam is reassuring, bilateral tympani appear normal on exam. (units unknown) (unknown) (unknown) (no date) (unknown) (unknown) vomiting, abdo lázaro pain, lightheadedness, dizziness, syncope. Patient was (units unknown) (unknown) Result panel 83 (unknown) (no date) (unknown) (unknown) (no value) (units unknown) (unknown) (unknown) (no date) (unknown) (unknown) <Electronicall y signed by Jovana Núñez Ivan> (units unknown) (unknown) (unknown) (no date) (unknown) (unknown) [id number] (units unknown) (unknown) (unknown) (no date) (unknown) (unknown) 11/25/22 15:54 (unit s unknown) (unknown) (unknown) (no date) (unknown) (unknown) 11/25/22 1805 (units unknown) (unknown) (unknown) (no date) (unknown) (unknown) 11/25/22 Range/Units (units unknown) (unknown) (unknown) (no date) (unknown) (unknown) 11/25/22 (units unknown) (unknown) (unknown) (no date) (unknown) (unknown) 1 tab PO Q6H P RN (Reason: pain) Qty: 10 0RF (units unknown) (unknown) (unknown) (no date) (unknown) (unknown) 15:38 11/25/22 (unit s unknown) (unknown) (unknown) (no date) (unknown) (unknown) 15:54 (units unknown) (unknown) (unknown) (no date) (unknown) (unknown) 16:38 11/25/22 (unit s unknown) (unknown) (unknown) (no date) (unknown) (unknown) 16:38 (units unknown) (unknown) (unknown) (no date) (unknown) (unknown) 17:00 11/25/22 (unit s unknown) (unknown) (unknown) (no date) (unknown) (unknown) 17:30 11/25/22 (unit s unknown) (unknown) (unknown) (no date) (unknown) (unknown) 17:31 (units unknown) (unknown) (unknown) (no date) (unknown) (unknown) 20 mg PO Q2-4H PRN (Reason: migraine headache) Qty: 7 0RF (units unknown) (unknown) (unknown) (no date) (unknown) (unknown) 200 mg PO TID PRN (Reason: cough) Qty: 30 0RF (units unknown) (unknown) (unknown) (no date) (unknown) (unknown) 22-year-old fe male with a history of migraines presents to the ED with 1 week of (units unknown) (unknown) (unknown) (no date) (unknown) (unknown) 4 mg PO Q8H MO N (Reason: nausea and vomiting) Qty: 14 0RF (units unknown) (unknown) (unknown) (no date) (unknown) (unknown) Activity Restrictions/Additio nal Instructions: (units unknown) (unknown) (unknown) (no date) (unknown) (unknown) Adenovirus (PC R) Not detected (Not Detect) (units unknown) (unknown) (unknown) (no date) (unknown) (unknown) Age/Sex: 22 / F (uni ts unknown) (unknown) (unknown) (no date) (unknown) (unknown) Allergic/Immunologic (units unknown) (unknown) (unknown) (no date) (unknown) (unknown) Allergic/Immun ologic : Denies urticaria, Denies throat swelling and Denies (units unknown) (unknown) (unknown) (no date) (unknown) (unknown) Allergies (units unknown) (unknown) (unknown) (no date) (unknown) (unknown) Allergy/AdvRea c Type Severity Reaction Status Date / Time (units unknown) (unknown) (unknown) (no date) (unknown) (unknown) Auscultation:? clear to auscultation bilaterally (units unknown) (unknown) (unknown) (no date) (unknown) (unknown) B. pertussis D NA (PCR) Not detected (Not Detecte) (units unknown) (unknown) (unknown) (no date) (unknown) (unknown) B.parapertussi s DNA PCR Not detected (Not Detecte) (units unknown) (unknown) (unknown) (no date) (unknown) (unknown) Blood Pressure 120/50 L (units unknown) (unknown) (unknown) (no date) (unknown) (unknown) Blood Pressure 138/72 11/25/22 15:38 (units unknown) (unknown) (unknown) (no date) (unknown) (unknown) Blood Pressure 138/72 127/90 (units unknown) (unknown) (unknown) (no date) (unknown) (unknown) Blood Pressure (unit s unknown) (unknown) (unknown) (no date) (unknown) (unknown) Cardio (units unknown) (unknown) (unknown) (no date) (unknown) (unknown) Cardiovascular (unit s unknown) (unknown) (unknown) (no date) (unknown) (unknown) Cardiovascular : Denies chest pain, Denies irregular heart rhythm, Denies (units unknown) (unknown) (unknown) (no date) (unknown) (unknown) Chief complain t: Upper Respiratory Symptoms (units unknown) (unknown) (unknown) (no date) (unknown) (unknown) Chlamy pneumon iae PCR Not detected (Not Detect) (units unknown) (unknown) (unknown) (no date) (unknown) (unknown) Clinical Impression: (units unknown) (unknown) (unknown) (no date) (unknown) (unknown) Const (units unknown) (unknown) (unknown) (no date) (unknown) (unknown) Constitutional (unit s unknown) (unknown) (unknown) (no date) (unknown) (unknown) Constitutional : Denies chills, Denies fatigue, Denies fever(s), Denies frequent (units unknown) (unknown) (unknown) (no date) (unknown) (unknown) Coronavirus 22 9E (PCR) Not detected (Not Detect) (units unknown) (unknown) (unknown) (no date) (unknown) (unknown) Coronavirus HK U1 (PCR) Not detected (Not Detect) (units unknown) (unknown) (unknown) (no date) (unknown) (unknown) Coronavirus NL 63 (PCR) Not detected (Not Detect) (units unknown) (unknown) (unknown) (no date) (unknown) (unknown) Coronavirus OC 43 (PCR) Not detected (Not Detect) (units unknown) (unknown) (unknown) (no date) (unknown) (unknown) Course (units unknown) (unknown) (unknown) (no date) (unknown) (unknown) : 1 Acct:[id number] (units unknown) (unknown) (unknown) (no date) (unknown) (unknown) Date of Servic e: 11/25/22 (units unknown) (unknown) (unknown) (no date) (unknown) (unknown) Denies frequen t falls, Denies loss of vision, Denies numbness, Denies tingling (units unknown) (unknown) (unknown) (no date) (unknown) (unknown) Denies loss of vision (units unknown) (unknown) (unknown) (no date) (unknown) (unknown) Denies numbnes s and Denies tingling (units unknown) (unknown) (unknown) (no date) (unknown) (unknown) Departure (units unknown) (unknown) (unknown) (no date) (unknown) (unknown) Discharge Plan (unit s unknown) (unknown) (unknown) (no date) (unknown) (unknown) ED Orders (units unknown) (unknown) (unknown) (no date) (unknown) (unknown) ENT (units unknown) (unknown) (unknown) (no date) (unknown) (unknown) ER Physician: Jovana Love P.A-C (units unknown) (unknown) (unknown) (no date) (unknown) (unknown) Ears, Nose, Mo uth, and Throat: Denies change in voice, Denies dizziness, Reports (units unknown) (unknown) (unknown) (no date) (unknown) (unknown) Ears:?hearing grossly normal bilaterally; bilateral tympani normal; bilateral (units unknown) (unknown) (unknown) (no date) (unknown) (unknown) Effort + Inspection:?normal respiratory effort (units unknown) (unknown) (unknown) (no date) (unknown) (unknown) Emergency Report (un its unknown) (unknown) (unknown) (no date) (unknown) (unknown) Endocrine (units unknown) (unknown) (unknown) (no date) (unknown) (unknown) Endocrine: Den ies fatigue, Denies flushing and Denies palpitations (units unknown) (unknown) (unknown) (no date) (unknown) (unknown) Entero/Rhino ( PCR) Detected H (Not Detect) (units unknown) (unknown) (unknown) (no date) (unknown) (unknown) Exam Narrative: (uni ts unknown) (unknown) (unknown) (no date) (unknown) (unknown) Exam (units unknown) (unknown) (unknown) (no date) (unknown) (unknown) Eyes (units unknown) (unknown) (unknown) (no date) (unknown) (unknown) Eyes: Denies c hange in vision, Denies eye discharge, Denies irritation and (units unknown) (unknown) (unknown) (no date) (unknown) (unknown) Face and sinus:?normal facial exam and sinuses nontender (units unknown) (unknown) (unknown) (no date) (unknown) (unknown) Gastrointestinal (un its unknown) (unknown) (unknown) (no date) (unknown) (unknown) Gastrointestin al: Denies abdominal pain, Denies change in bowel habits, Denies (units unknown) (unknown) (unknown) (no date) (unknown) (unknown) General (units unknown) (unknown) (unknown) (no date) (unknown) (unknown) General:?appea vincent normal, both eyes and all related structures (units unknown) (unknown) (unknown) (no date) (unknown) (unknown) General:?coope rative , healthy appearing and comfortable (units unknown) (unknown) (unknown) (no date) (unknown) (unknown) General:?patie nt alert, patient awake and patient oriented x3 (units unknown) (unknown) (unknown) (no date) (unknown) (unknown) Genitourinary (units unknown) (unknown) (unknown) (no date) (unknown) (unknown) Genitourinary: Denies hematuria, Denies flank pain, Denies urinary incontinence (units unknown) (unknown) (unknown) (no date) (unknown) (unknown) HENMT (units unknown) (unknown) (unknown) (no date) (unknown) (unknown) HPI - General Adult (units unknown) (unknown) (unknown) (no date) (unknown) (unknown) HPI narrative: (unit s unknown) (unknown) (unknown) (no date) (unknown) (unknown) Head:?normal t o inspection (units unknown) (unknown) (unknown) (no date) (unknown) (unknown) Hematologic/Ly mphati c (units unknown) (unknown) (unknown) (no date) (unknown) (unknown) Hematologic/Ly mphati c: Denies easy bruising (units unknown) (unknown) (unknown) (no date) (unknown) (unknown) History of Pre sent Illness (units unknown) (unknown) (unknown) (no date) (unknown) (unknown) Human Metapneu movir PCR Not detected (Not Detect) (units unknown) (unknown) (unknown) (no date) (unknown) (unknown) Influenza Type A (PCR) Not detected (Not Detect) (units unknown) (unknown) (unknown) (no date) (unknown) (unknown) Influenza Type B (PCR) Not detected (Not Detect) (units unknown) (unknown) (unknown) (no date) (unknown) (unknown) Initial Vital Signs (units unknown) (unknown) (unknown) (no date) (unknown) (unknown) Initial Vital Signs: (units unknown) (unknown) (unknown) (no date) (unknown) (unknown) Integumentary/ Breast s (units unknown) (unknown) (unknown) (no date) (unknown) (unknown) [address] [address] (units unknown) (unknown) (unknown) (no date) (unknown) (unknown) Lab Data (units unknown) (unknown) (unknown) (no date) (unknown) (unknown) Lab Results (units unknown) (unknown) (unknown) (no date) (unknown) (unknown) Labs: (units unknown) (unknown) (unknown) (no date) (unknown) (unknown) M. pneumoniae (PCR) Not detected (Not Detect) (units unknown) (unknown) (unknown) (no date) (unknown) (unknown) MDM Narrative (units unknown) (unknown) (unknown) (no date) (unknown) (unknown) Medical Decisi on Making (units unknown) (unknown) (unknown) (no date) (unknown) (unknown) Medical decisi on making narrative: (units unknown) (unknown) (unknown) (no date) (unknown) (unknown) Medical record s reviewed: Yes (units unknown) (unknown) (unknown) (no date) (unknown) (unknown) Medication Instructions Recorded (units unknown) (unknown) (unknown) (no date) (unknown) (unknown) Mode of arriva l: Ambulatory (units unknown) (unknown) (unknown) (no date) (unknown) (unknown) Mouth:?oral mu cosae normal (units unknown) (unknown) (unknown) (no date) (unknown) (unknown) Musculoskeletal (uni ts unknown) (unknown) (unknown) (no date) (unknown) (unknown) Musculoskeleta l: Denies back pain, Denies muscle weakness, Denies neck pain, (units unknown) (unknown) (unknown) (no date) (unknown) (unknown) Narrative (units unknown) (unknown) (unknown) (no date) (unknown) (unknown) Neck (units unknown) (unknown) (unknown) (no date) (unknown) (unknown) Neck:?normal v isual inspection and no lymphadenopathy noted (units unknown) (unknown) (unknown) (no date) (unknown) (unknown) Neuro (units unknown) (unknown) (unknown) (no date) (unknown) (unknown) Neurologic (units unknown) (unknown) (unknown) (no date) (unknown) (unknown) Neurologic: De nies behavioral changes, Denies confusion, Denies dizziness, (units unknown) (unknown) (unknown) (no date) (unknown) (unknown) New (units unknown) (unknown) (unknown) (no date) (unknown) (unknown) No Action (units unknown) (unknown) (unknown) (no date) (unknown) (unknown) No Known Drug Allergies Allergy Verified 02/09/22 13:07 (units unknown) (unknown) (unknown) (no date) (unknown) (unknown) Nose:?external nose normal (units unknown) (unknown) (unknown) (no date) (unknown) (unknown) Ordered: (units unknown) (unknown) (unknown) (no date) (unknown) (unknown) Orders (units unknown) (unknown) (unknown) (no date) (unknown) (unknown) Oxygen Deliver y Method Room Air 11/25/22 15:38 (units unknown) (unknown) (unknown) (no date) (unknown) (unknown) Oxygen Deliver y Method Room Air (units unknown) (unknown) (unknown) (no date) (unknown) (unknown) Oxygen Deliver y Method (units unknown) (unknown) (unknown) (no date) (unknown) (unknown) Parainfluenza 1 (PCR) Not detected (Not Detect) (units unknown) (unknown) (unknown) (no date) (unknown) (unknown) Parainfluenza 2 (PCR) Not detected (Not Detect) (units unknown) (unknown) (unknown) (no date) (unknown) (unknown) Parainfluenza 3 (PCR) Not detected (Not Detect) (units unknown) (unknown) (unknown) (no date) (unknown) (unknown) Parainfluenza 4 (PCR) Not detected (Not Detect) (units unknown) (unknown) (unknown) (no date) (unknown) (unknown) Patient Dispos ition: Home (units unknown) (unknown) (unknown) (no date) (unknown) (unknown) Patient History (uni ts unknown) (unknown) (unknown) (no date) (unknown) (unknown) Patient: Jessy Gudino MR#: [id number] (units unknown) (unknown) (unknown) (no date) (unknown) (unknown) Jeanette Epstein for symptoms. Recommend continued hydration, PCP follow-up. ED (units unknown) (unknown) (unknown) (no date) (unknown) (unknown) Posterior phar ynx is not erythematous, no exudates, no swelling. Patient's (units unknown) (unknown) (unknown) (no date) (unknown) (unknown) Prescription s ent for Zofran and Tessalon Perles. (units unknown) (unknown) (unknown) (no date) (unknown) (unknown) Prescriptions: (unit s unknown) (unknown) (unknown) (no date) (unknown) (unknown) Previous Rx's (units unknown) (unknown) (unknown) (no date) (unknown) (unknown) Psychiatric (units unknown) (unknown) (unknown) (no date) (unknown) (unknown) Psychiatric: D enies anxiety, Denies behavioral changes, Denies confusion, Denies (units unknown) (unknown) (unknown) (no date) (unknown) (unknown) Pulse Oximetry 98 11/25/22 15:38 (units unknown) (unknown) (unknown) (no date) (unknown) (unknown) Pulse Oximetry 98 98 98 (units unknown) (unknown) (unknown) (no date) (unknown) (unknown) Pulse Oximetry 98 98 (units unknown) (unknown) (unknown) (no date) (unknown) (unknown) Pulse Oximetry (unit s unknown) (unknown) (unknown) (no date) (unknown) (unknown) Pulse Rate 68 11/25/22 15:38 (units unknown) (unknown) (unknown) (no date) (unknown) (unknown) Pulse Rate 68 84 (un its unknown) (unknown) (unknown) (no date) (unknown) (unknown) Pulse Rate 77 81 74 (units unknown) (unknown) (unknown) (no date) (unknown) (unknown) Pulse Rate (units unknown) (unknown) (unknown) (no date) (unknown) (unknown) ROS Unobtainab le: All systems reviewed + are unremarkable except as noted in HPI (units unknown) (unknown) (unknown) (no date) (unknown) (unknown) RSV (PCR) Not detected (Not Detect) (units unknown) (unknown) (unknown) (no date) (unknown) (unknown) Rate:?regular rate ( units unknown) (unknown) (unknown) (no date) (unknown) (unknown) Related Data (units unknown) (unknown) (unknown) (no date) (unknown) (unknown) Resp (units unknown) (unknown) (unknown) (no date) (unknown) (unknown) Respiratory Pa cecilia (Film Array) Stat (units unknown) (unknown) (unknown) (no date) (unknown) (unknown) Respiratory Ra te 18 11/25/22 15:38 (units unknown) (unknown) (unknown) (no date) (unknown) (unknown) Respiratory Rate 18 (units unknown) (unknown) (unknown) (no date) (unknown) (unknown) Respiratory Rate (un its unknown) (unknown) (unknown) (no date) (unknown) (unknown) Respiratory (units unknown) (unknown) (unknown) (no date) (unknown) (unknown) Respiratory: D enies cough, Denies dyspnea, Denies dyspnea on exertion and Denies (units unknown) (unknown) (unknown) (no date) (unknown) (unknown) Review of Systems (u nits unknown) (unknown) (unknown) (no date) (unknown) (unknown) Rhythm:?regula r rhythm (units unknown) (unknown) (unknown) (no date) (unknown) (unknown) Rx Instructions: (un its unknown) (unknown) (unknown) (no date) (unknown) (unknown) SARS-CoV-2 (PC R) Not detected (Not Detecte) (units unknown) (unknown) (unknown) (no date) (unknown) (unknown) Signed By: (units unknown) (unknown) (unknown) (no date) (unknown) (unknown) Skin/Breast: D enies pruritus, Denies erythema, Denies rash and Denies wounds (units unknown) (unknown) (unknown) (no date) (unknown) (unknown) Smoking Status : Never smoker (units unknown) (unknown) (unknown) (no date) (unknown) (unknown) Social History (units unknown) (unknown) (unknown) (no date) (unknown) (unknown) Source: patient (uni ts unknown) (unknown) (unknown) (no date) (unknown) (unknown) Stand Alone Fo de: Patient Portal/API (units unknown) (unknown) (unknown) (no date) (unknown) (unknown) Stated complai nt: ears clogged, not eating, fever, cough, not sleepi (units unknown) (unknown) (unknown) (no date) (unknown) (unknown) Substance Use Type: marijuana (units unknown) (unknown) (unknown) (no date) (unknown) (unknown) Temperature 97 .7 F 11/25/22 15:38 (units unknown) (unknown) (unknown) (no date) (unknown) (unknown) Temperature 97.7 F ( units unknown) (unknown) (unknown) (no date) (unknown) (unknown) Temperature (units unknown) (unknown) (unknown) (no date) (unknown) (unknown) Throat:?faculty member ior oropharynx normal (units unknown) (unknown) (unknown) (no date) (unknown) (unknown) Time Seen by Provider: 11/25/22 16:52 (units unknown) (unknown) (unknown) (no date) (unknown) (unknown) Upper respirat ory infection (units unknown) (unknown) (unknown) (no date) (unknown) (unknown) Vital Signs - 8 hr ( units unknown) (unknown) (unknown) (no date) (unknown) (unknown) Vital Signs (units unknown) (unknown) (unknown) (no date) (unknown) (unknown) Vital signs: (units unknown) (unknown) (unknown) (no date) (unknown) (unknown) You were also being prescribed Zofran for nausea. Please continue to stay well (units unknown) (unknown) (unknown) (no date) (unknown) (unknown) You were evalu ated in the ED today for a sore throat, cough, ear pain. Your (units unknown) (unknown) (unknown) (no date) (unknown) (unknown) alcohol intake frequency: holidays/special occasions only (units unknown) (unknown) (unknown) (no date) (unknown) (unknown) and Denies orthopnea (units unknown) (unknown) (unknown) (no date) (unknown) (unknown) and Denies uri nary urgency (units unknown) (unknown) (unknown) (no date) (unknown) (unknown) and Denies weakness (units unknown) (unknown) (unknown) (no date) (unknown) (unknown) and below (units unknown) (unknown) (unknown) (no date) (unknown) (unknown) antibiotics as prescribed since the antibiotics could have already started (units unknown) (unknown) (unknown) (no date) (unknown) (unknown) benzonatate 20 0 mg capsule 200 mg PO TID PRN cough #30 caps 11/25/22 (units unknown) (unknown) (unknown) (no date) (unknown) (unknown) benzonatate 20 0 mg capsule (units unknown) (unknown) (unknown) (no date) (unknown) (unknown) came to the ED since her symptoms were not improving. (units unknown) (unknown) (unknown) (no date) (unknown) (unknown) continue to ta ke Tylenol or ibuprofen for fevers, aches and pains. You may also (units unknown) (unknown) (unknown) (no date) (unknown) (unknown) depression, De nies homicidal ideation and Denies suicidal ideation (units unknown) (unknown) (unknown) (no date) (unknown) (unknown) diagnosed with a your infection and started Augmentin on 11/23/2022. Patient (units unknown) (unknown) (unknown) (no date) (unknown) (unknown) diarrhea, Repo rts nausea and Denies vomiting (units unknown) (unknown) (unknown) (no date) (unknown) (unknown) do not exceed 4 doses per 24 hrs (units unknown) (unknown) (unknown) (no date) (unknown) (unknown) eletriptan 20 mg tablet (Relpax) 20 mg PO Q2-4H PRN migraine 02/09/22 (units unknown) (unknown) (unknown) (no date) (unknown) (unknown) eletriptan [Re lpax] 20 mg tablet (units unknown) (unknown) (unknown) (no date) (unknown) (unknown) external ear c anals normal (units unknown) (unknown) (unknown) (no date) (unknown) (unknown) falls, Denies lethargy and Denies weakness (units unknown) (unknown) (unknown) (no date) (unknown) (unknown) headache #7 tabs (un its unknown) (unknown) (unknown) (no date) (unknown) (unknown) hydrated. Plea se follow-up with your PCP as soon as possible. Return to the ED (units unknown) (unknown) (unknown) (no date) (unknown) (unknown) hydrocodone 5 mg-acetaminophen 325 1 tab PO Q6H PRN pain #10 tabs 02/09/22 (units unknown) (unknown) (unknown) (no date) (unknown) (unknown) hydrocodone-ac etamin ophen 5-325 mg tablet (units unknown) (unknown) (unknown) (no date) (unknown) (unknown) if you have ch est pain or trouble breathing. (units unknown) (unknown) (unknown) (no date) (unknown) (unknown) lightheadednes s, Denies palpitations, Denies dyspnea, Denies dyspnea on exertion (units unknown) (unknown) (unknown) (no date) (unknown) (unknown) mg tablet (units unknown) (unknown) (unknown) (no date) (unknown) (unknown) nausea. Concer n for otitis media versus upper respiratory infection versus (units unknown) (unknown) (unknown) (no date) (unknown) (unknown) nausea. Patien t denies fever, chills, chest pain, shortness of breath, (units unknown) (unknown) (unknown) (no date) (unknown) (unknown) ondansetron 4 mg disintegrating 4 mg PO Q8H PRN nausea and 11/25/22 (units unknown) (unknown) (unknown) (no date) (unknown) (unknown) ondansetron 4 mg tablet,disintegratin g (units unknown) (unknown) (unknown) (no date) (unknown) (unknown) otalgia, Denie s neck pain, Reports sore throat and Denies throat swelling (units unknown) (unknown) (unknown) (no date) (unknown) (unknown) pharyngitis ve rsus other. Respiratory swab was positive for enterovirus/rhino (units unknown) (unknown) (unknown) (no date) (unknown) (unknown) resolving her infection. Recommend Flonase, Tylenol, ibuprofen, Tessalon (units unknown) (unknown) (unknown) (no date) (unknown) (unknown) respiratory pa cecilia was positive for enterovirus/rhino virus, which is basically (units unknown) (unknown) (unknown) (no date) (unknown) (unknown) return precaut ions discussed with patient. Patient verbalized understanding. (units unknown) (unknown) (unknown) (no date) (unknown) (unknown) symptoms are l ikely due to the URI. Recommend that patient continue her (units unknown) (unknown) (unknown) (no date) (unknown) (unknown) tablet vomitin g #14 tabs (units unknown) (unknown) (unknown) (no date) (unknown) (unknown) take Flonase w hich is [id number] for nasal congestion and ear congestion. (units unknown) (unknown) (unknown) (no date) (unknown) (unknown) that you alrea dy started. You may take Tessalon Perles for the cough. You can (units unknown) (unknown) (unknown) (no date) (unknown) (unknown) the cold virus . It is common for upper respiratory viral infections to run (units unknown) (unknown) (unknown) (no date) (unknown) (unknown) their course f or 1-2 weeks. You may complete the full course of antibiotics (units unknown) (unknown) (unknown) (no date) (unknown) (unknown) upper respirat ory symptoms including ear fullness, ear pain, sore throat, cough, (units unknown) (unknown) (unknown) (no date) (unknown) (unknown) virus. Physica l exam is reassuring, bilateral tympani appear normal on exam. (units unknown) (unknown) (unknown) (no date) (unknown) (unknown) vomiting, abdo lázaro pain, lightheadedness, dizziness, syncope. Patient was (units unknown) (unknown) (unknown) (no date) (unknown) (unknown) wheezing (units unknown) (unknown) Result panel 84 (unknown) (no date) (unknown) (unknown) (no value) (units unknown) (unknown) (unknown) (no date) (unknown) (unknown) <Electronicall y signed by Jovana Love> (units unknown) (unknown) (unknown) (no date) (unknown) (unknown) <Electronicall y signed by Jamison Wick D.O.> (units unknown) (unknown) (unknown) (no date) (unknown) (unknown) <Electronicall y signed by Jamison Wick D.O.> (units unknown) (unknown) (unknown) (no date) (unknown) (unknown) <Giuseppe Longo - Last Filed: 11/25/22 18:05> (units unknown) (unknown) (unknown) (no date) (unknown) (unknown) <Jamison ocampo DO - Last Filed: 11/25/22 18:37> (units unknown) (unknown) (unknown) (no date) (unknown) (unknown) <cosigner> (units unknown) (unknown) (unknown) (no date) (unknown) (unknown) [id number] (units unknown) (unknown) (unknown) (no date) (unknown) (unknown) 11/25/22 15:54 (unit s unknown) (unknown) (unknown) (no date) (unknown) (unknown) 11/25/22 1805 (units unknown) (unknown) (unknown) (no date) (unknown) (unknown) 11/25/22 1837 (units unknown) (unknown) (unknown) (no date) (unknown) (unknown) 11/25/22 Range/Units (units unknown) (unknown) (unknown) (no date) (unknown) (unknown) 11/25/22 (units unknown) (unknown) (unknown) (no date) (unknown) (unknown) 1 tab PO Q6H P RN (Reason: pain) Qty: 10 0RF (units unknown) (unknown) (unknown) (no date) (unknown) (unknown) 15:38 11/25/22 (unit s unknown) (unknown) (unknown) (no date) (unknown) (unknown) 15:54 (units unknown) (unknown) (unknown) (no date) (unknown) (unknown) 16:38 11/25/22 (unit s unknown) (unknown) (unknown) (no date) (unknown) (unknown) 16:38 (units unknown) (unknown) (unknown) (no date) (unknown) (unknown) 17:00 11/25/22 (unit s unknown) (unknown) (unknown) (no date) (unknown) (unknown) 17:30 11/25/22 (unit s unknown) (unknown) (unknown) (no date) (unknown) (unknown) 17:31 (units unknown) (unknown) (unknown) (no date) (unknown) (unknown) 20 mg PO Q2-4H PRN (Reason: migraine headache) Qty: 7 0RF (units unknown) (unknown) (unknown) (no date) (unknown) (unknown) 200 mg PO TID PRN (Reason: cough) Qty: 30 0RF (units unknown) (unknown) (unknown) (no date) (unknown) (unknown) 22-year-old fe male with a history of migraines presents to the ED with 1 week of (units unknown) (unknown) (unknown) (no date) (unknown) (unknown) 4 mg PO Q8H MO N (Reason: nausea and vomiting) Qty: 14 0RF (units unknown) (unknown) (unknown) (no date) (unknown) (unknown) Activity Restrictions/Additio nal Instructions: (units unknown) (unknown) (unknown) (no date) (unknown) (unknown) Adenovirus (PC R) Not detected (Not Detect) (units unknown) (unknown) (unknown) (no date) (unknown) (unknown) Age/Sex: 22 / F (uni ts unknown) (unknown) (unknown) (no date) (unknown) (unknown) Allergic/Immunologic (units unknown) (unknown) (unknown) (no date) (unknown) (unknown) Allergic/Immun ologic : Denies urticaria, Denies throat swelling and Denies (units unknown) (unknown) (unknown) (no date) (unknown) (unknown) Allergies (units unknown) (unknown) (unknown) (no date) (unknown) (unknown) Allergy/AdvRea c Type Severity Reaction Status Date / Time (units unknown) (unknown) (unknown) (no date) (unknown) (unknown) Auscultation:? clear to auscultation bilaterally (units unknown) (unknown) (unknown) (no date) (unknown) (unknown) B. pertussis D NA (PCR) Not detected (Not Detecte) (units unknown) (unknown) (unknown) (no date) (unknown) (unknown) B.parapertussi s DNA PCR Not detected (Not Detecte) (units unknown) (unknown) (unknown) (no date) (unknown) (unknown) Blood Pressure 120/50 L (units unknown) (unknown) (unknown) (no date) (unknown) (unknown) Blood Pressure 138/72 0516 15:38 (units unknown) (unknown) (unknown) (no date) (unknown) (unknown) Blood Pressure 138/72 127/90 (units unknown) (unknown) (unknown) (no date) (unknown) (unknown) Blood Pressure (unit s unknown) (unknown) (unknown) (no date) (unknown) (unknown) Cardio (units unknown) (unknown) (unknown) (no date) (unknown) (unknown) Cardiovascular (unit s unknown) (unknown) (unknown) (no date) (unknown) (unknown) Cardiovascular : Denies chest pain, Denies irregular heart rhythm, Denies (units unknown) (unknown) (unknown) (no date) (unknown) (unknown) Chief complain t: Upper Respiratory Symptoms (units unknown) (unknown) (unknown) (no date) (unknown) (unknown) Chlamy pneumon iae PCR Not detected (Not Detect) (units unknown) (unknown) (unknown) (no date) (unknown) (unknown) Clinical Impression: (units unknown) (unknown) (unknown) (no date) (unknown) (unknown) Const (units unknown) (unknown) (unknown) (no date) (unknown) (unknown) Constitutional (unit s unknown) (unknown) (unknown) (no date) (unknown) (unknown) Constitutional : Denies chills, Denies fatigue, Denies fever(s), Denies frequent (units unknown) (unknown) (unknown) (no date) (unknown) (unknown) Coronavirus 22 9E (PCR) Not detected (Not Detect) (units unknown) (unknown) (unknown) (no date) (unknown) (unknown) Coronavirus HK U1 (PCR) Not detected (Not Detect) (units unknown) (unknown) (unknown) (no date) (unknown) (unknown) Coronavirus NL 63 (PCR) Not detected (Not Detect) (units unknown) (unknown) (unknown) (no date) (unknown) (unknown) Coronavirus OC 43 (PCR) Not detected (Not Detect) (units unknown) (unknown) (unknown) (no date) (unknown) (unknown) Cosign (units unknown) (unknown) (unknown) (no date) (unknown) (unknown) Course (units unknown) (unknown) (unknown) (no date) (unknown) (unknown) : 1 Acct:[id number] (units unknown) (unknown) (unknown) (no date) (unknown) (unknown) Date of Servic e: 11/25/22 (units unknown) (unknown) (unknown) (no date) (unknown) (unknown) Denies frequen t falls, Denies loss of vision, Denies numbness, Denies tingling (units unknown) (unknown) (unknown) (no date) (unknown) (unknown) Denies loss of vision (units unknown) (unknown) (unknown) (no date) (unknown) (unknown) Denies numbnes s and Denies tingling (units unknown) (unknown) (unknown) (no date) (unknown) (unknown) Departure (units unknown) (unknown) (unknown) (no date) (unknown) (unknown) Discharge Plan (unit s unknown) (unknown) (unknown) (no date) (unknown) (unknown) Dr Wick Co-S ign Statement: I was available for consultation during this (units unknown) (unknown) (unknown) (no date) (unknown) (unknown) ED Attending Cosignature Attestation: (units unknown) (unknown) (unknown) (no date) (unknown) (unknown) ED Orders (units unknown) (unknown) (unknown) (no date) (unknown) (unknown) ENT (units unknown) (unknown) (unknown) (no date) (unknown) (unknown) ER Physician: Jovana Love P.A-C (units unknown) (unknown) (unknown) (no date) (unknown) (unknown) Ears, Nose, Mo uth, and Throat: Denies change in voice, Denies dizziness, Reports (units unknown) (unknown) (unknown) (no date) (unknown) (unknown) Ears:?hearing grossly normal bilaterally; bilateral tympani normal; bilateral (units unknown) (unknown) (unknown) (no date) (unknown) (unknown) Effort + Inspection:?normal respiratory effort (units unknown) (unknown) (unknown) (no date) (unknown) (unknown) Emergency Report (un its unknown) (unknown) (unknown) (no date) (unknown) (unknown) Endocrine (units unknown) (unknown) (unknown) (no date) (unknown) (unknown) Endocrine: Den ies fatigue, Denies flushing and Denies palpitations (units unknown) (unknown) (unknown) (no date) (unknown) (unknown) Entero/Rhino ( PCR) Detected H (Not Detect) (units unknown) (unknown) (unknown) (no date) (unknown) (unknown) Exam Narrative: (uni ts unknown) (unknown) (unknown) (no date) (unknown) (unknown) Exam (units unknown) (unknown) (unknown) (no date) (unknown) (unknown) Eyes (units unknown) (unknown) (unknown) (no date) (unknown) (unknown) Eyes: Denies c hange in vision, Denies eye discharge, Denies irritation and (units unknown) (unknown) (unknown) (no date) (unknown) (unknown) Face and sinus:?normal facial exam and sinuses nontender (units unknown) (unknown) (unknown) (no date) (unknown) (unknown) Gastrointestinal (un its unknown) (unknown) (unknown) (no date) (unknown) (unknown) Gastrointestin al: Denies abdominal pain, Denies change in bowel habits, Denies (units unknown) (unknown) (unknown) (no date) (unknown) (unknown) General (units unknown) (unknown) (unknown) (no date) (unknown) (unknown) General:?appea vincent normal, both eyes and all related structures (units unknown) (unknown) (unknown) (no date) (unknown) (unknown) General:?coope rative , healthy appearing and comfortable (units unknown) (unknown) (unknown) (no date) (unknown) (unknown) General:?patie nt alert, patient awake and patient oriented x3 (units unknown) (unknown) (unknown) (no date) (unknown) (unknown) Genitourinary (units unknown) (unknown) (unknown) (no date) (unknown) (unknown) Genitourinary: Denies hematuria, Denies flank pain, Denies urinary incontinence (units unknown) (unknown) (unknown) (no date) (unknown) (unknown) HENMT (units unknown) (unknown) (unknown) (no date) (unknown) (unknown) HPI - General Adult (units unknown) (unknown) (unknown) (no date) (unknown) (unknown) HPI narrative: (unit s unknown) (unknown) (unknown) (no date) (unknown) (unknown) Head:?normal t o inspection (units unknown) (unknown) (unknown) (no date) (unknown) (unknown) Hematologic/Ly mphati c (units unknown) (unknown) (unknown) (no date) (unknown) (unknown) Hematologic/Ly mphati c: Denies easy bruising (units unknown) (unknown) (unknown) (no date) (unknown) (unknown) History of Pre sent Illness (units unknown) (unknown) (unknown) (no date) (unknown) (unknown) Human Metapneu movir PCR Not detected (Not Detect) (units unknown) (unknown) (unknown) (no date) (unknown) (unknown) Influenza Type A (PCR) Not detected (Not Detect) (units unknown) (unknown) (unknown) (no date) (unknown) (unknown) Influenza Type B (PCR) Not detected (Not Detect) (units unknown) (unknown) (unknown) (no date) (unknown) (unknown) Initial Vital Signs (units unknown) (unknown) (unknown) (no date) (unknown) (unknown) Initial Vital Signs: (units unknown) (unknown) (unknown) (no date) (unknown) (unknown) Integumentary/ Breast s (units unknown) (unknown) (unknown) (no date) (unknown) (unknown) [address] [address] (units unknown) (unknown) (unknown) (no date) (unknown) (unknown) Lab Data (units unknown) (unknown) (unknown) (no date) (unknown) (unknown) Lab Results (units unknown) (unknown) (unknown) (no date) (unknown) (unknown) Labs: (units unknown) (unknown) (unknown) (no date) (unknown) (unknown) M. pneumoniae (PCR) Not detected (Not Detect) (units unknown) (unknown) (unknown) (no date) (unknown) (unknown) MDM Narrative (units unknown) (unknown) (unknown) (no date) (unknown) (unknown) Medical Decisi on Making (units unknown) (unknown) (unknown) (no date) (unknown) (unknown) Medical decisi on making narrative: (units unknown) (unknown) (unknown) (no date) (unknown) (unknown) Medical record s reviewed: Yes (units unknown) (unknown) (unknown) (no date) (unknown) (unknown) Medication Instructions Recorded (units unknown) (unknown) (unknown) (no date) (unknown) (unknown) Mode of arriva l: Ambulatory (units unknown) (unknown) (unknown) (no date) (unknown) (unknown) Mouth:?oral mu cosae normal (units unknown) (unknown) (unknown) (no date) (unknown) (unknown) Musculoskeletal (uni ts unknown) (unknown) (unknown) (no date) (unknown) (unknown) Musculoskeleta l: Denies back pain, Denies muscle weakness, Denies neck pain, (units unknown) (unknown) (unknown) (no date) (unknown) (unknown) Narrative (units unknown) (unknown) (unknown) (no date) (unknown) (unknown) Neck (units unknown) (unknown) (unknown) (no date) (unknown) (unknown) Neck:?normal v isual inspection and no lymphadenopathy noted (units unknown) (unknown) (unknown) (no date) (unknown) (unknown) Neuro (units unknown) (unknown) (unknown) (no date) (unknown) (unknown) Neurologic (units unknown) (unknown) (unknown) (no date) (unknown) (unknown) Neurologic: De nies behavioral changes, Denies confusion, Denies dizziness, (units unknown) (unknown) (unknown) (no date) (unknown) (unknown) New (units unknown) (unknown) (unknown) (no date) (unknown) (unknown) No Action (units unknown) (unknown) (unknown) (no date) (unknown) (unknown) No Known Drug Allergies Allergy Verified 02/09/22 13:07 (units unknown) (unknown) (unknown) (no date) (unknown) (unknown) Nose:?external nose normal (units unknown) (unknown) (unknown) (no date) (unknown) (unknown) Ordered: (units unknown) (unknown) (unknown) (no date) (unknown) (unknown) Orders (units unknown) (unknown) (unknown) (no date) (unknown) (unknown) Oxygen Deliver y Method Room Air 11/25/22 15:38 (units unknown) (unknown) (unknown) (no date) (unknown) (unknown) Oxygen Deliver y Method Room Air (units unknown) (unknown) (unknown) (no date) (unknown) (unknown) Oxygen Deliver y Method (units unknown) (unknown) (unknown) (no date) (unknown) (unknown) Parainfluenza 1 (PCR) Not detected (Not Detect) (units unknown) (unknown) (unknown) (no date) (unknown) (unknown) Parainfluenza 2 (PCR) Not detected (Not Detect) (units unknown) (unknown) (unknown) (no date) (unknown) (unknown) Parainfluenza 3 (PCR) Not detected (Not Detect) (units unknown) (unknown) (unknown) (no date) (unknown) (unknown) Parainfluenza 4 (PCR) Not detected (Not Detect) (units unknown) (unknown) (unknown) (no date) (unknown) (unknown) Patient Dispos ition: Home (units unknown) (unknown) (unknown) (no date) (unknown) (unknown) Patient History (uni ts unknown) (unknown) (unknown) (no date) (unknown) (unknown) Patient: Jessy Gudino MR#: [id number] (units unknown) (unknown) (unknown) (no date) (unknown) (unknown) Jeanette Epstein for symptoms. Recommend continued hydration, PCP follow-up. ED (units unknown) (unknown) (unknown) (no date) (unknown) (unknown) Posterior phar ynx is not erythematous, no exudates, no swelling. Patient's (units unknown) (unknown) (unknown) (no date) (unknown) (unknown) Prescription s ent for Zofran and Tessalon Perles. (units unknown) (unknown) (unknown) (no date) (unknown) (unknown) Prescriptions: (unit s unknown) (unknown) (unknown) (no date) (unknown) (unknown) Previous Rx's (units unknown) (unknown) (unknown) (no date) (unknown) (unknown) Psychiatric (units unknown) (unknown) (unknown) (no date) (unknown) (unknown) Psychiatric: D enies anxiety, Denies behavioral changes, Denies confusion, Denies (units unknown) (unknown) (unknown) (no date) (unknown) (unknown) Pulse Oximetry 98 11/25/22 15:38 (units unknown) (unknown) (unknown) (no date) (unknown) (unknown) Pulse Oximetry 98 98 98 (units unknown) (unknown) (unknown) (no date) (unknown) (unknown) Pulse Oximetry 98 98 (units unknown) (unknown) (unknown) (no date) (unknown) (unknown) Pulse Oximetry (unit s unknown) (unknown) (unknown) (no date) (unknown) (unknown) Pulse Rate 68 11/25/22 15:38 (units unknown) (unknown) (unknown) (no date) (unknown) (unknown) Pulse Rate 68 84 (un its unknown) (unknown) (unknown) (no date) (unknown) (unknown) Pulse Rate 77 81 74 (units unknown) (unknown) (unknown) (no date) (unknown) (unknown) Pulse Rate (units unknown) (unknown) (unknown) (no date) (unknown) (unknown) ROS Unobtainab le: All systems reviewed + are unremarkable except as noted in HPI (units unknown) (unknown) (unknown) (no date) (unknown) (unknown) RSV (PCR) Not detected (Not Detect) (units unknown) (unknown) (unknown) (no date) (unknown) (unknown) Rate:?regular rate ( units unknown) (unknown) (unknown) (no date) (unknown) (unknown) Related Data (units unknown) (unknown) (unknown) (no date) (unknown) (unknown) Resp (units unknown) (unknown) (unknown) (no date) (unknown) (unknown) Respiratory Pa cecilia (Film Array) Stat (units unknown) (unknown) (unknown) (no date) (unknown) (unknown) Respiratory Ra te 18 11/25/22 15:38 (units unknown) (unknown) (unknown) (no date) (unknown) (unknown) Respiratory Rate 18 (units unknown) (unknown) (unknown) (no date) (unknown) (unknown) Respiratory Rate (un its unknown) (unknown) (unknown) (no date) (unknown) (unknown) Respiratory (units unknown) (unknown) (unknown) (no date) (unknown) (unknown) Respiratory: D enies cough, Denies dyspnea, Denies dyspnea on exertion and Denies (units unknown) (unknown) (unknown) (no date) (unknown) (unknown) Review of Systems (u nits unknown) (unknown) (unknown) (no date) (unknown) (unknown) Rhythm:?regula r rhythm (units unknown) (unknown) (unknown) (no date) (unknown) (unknown) Rx Instructions: (un its unknown) (unknown) (unknown) (no date) (unknown) (unknown) SARS-CoV-2 (PC R) Not detected (Not Detecte) (units unknown) (unknown) (unknown) (no date) (unknown) (unknown) Signed By: (units unknown) (unknown) (unknown) (no date) (unknown) (unknown) Skin/Breast: D enies pruritus, Denies erythema, Denies rash and Denies wounds (units unknown) (unknown) (unknown) (no date) (unknown) (unknown) Smoking Status : Never smoker (units unknown) (unknown) (unknown) (no date) (unknown) (unknown) Social History (units unknown) (unknown) (unknown) (no date) (unknown) (unknown) Source: patient (uni ts unknown) (unknown) (unknown) (no date) (unknown) (unknown) Stand Alone Fo de: Patient Portal/API (units unknown) (unknown) (unknown) (no date) (unknown) (unknown) Stated complai nt: ears clogged, not eating, fever, cough, not sleepi (units unknown) (unknown) (unknown) (no date) (unknown) (unknown) Substance Use Type: marijuana (units unknown) (unknown) (unknown) (no date) (unknown) (unknown) Temperature 97 .7 F 11/25/22 15:38 (units unknown) (unknown) (unknown) (no date) (unknown) (unknown) Temperature 97.7 F ( units unknown) (unknown) (unknown) (no date) (unknown) (unknown) Temperature (units unknown) (unknown) (unknown) (no date) (unknown) (unknown) Throat:?faculty member ior oropharynx normal (units unknown) (unknown) (unknown) (no date) (unknown) (unknown) Time Seen by Provider: 11/25/22 16:52 (units unknown) (unknown) (unknown) (no date) (unknown) (unknown) Upper respirat ory infection (units unknown) (unknown) (unknown) (no date) (unknown) (unknown) Vital Signs - 8 hr ( units unknown) (unknown) (unknown) (no date) (unknown) (unknown) Vital Signs (units unknown) (unknown) (unknown) (no date) (unknown) (unknown) Vital signs: (units unknown) (unknown) (unknown) (no date) (unknown) (unknown) You were also being prescribed Zofran for nausea. Please continue to stay well (units unknown) (unknown) (unknown) (no date) (unknown) (unknown) You were evalu ated in the ED today for a sore throat, cough, ear pain. Your (units unknown) (unknown) (unknown) (no date) (unknown) (unknown) administrative purposes only. I did not have direct contact with this patient (units unknown) (unknown) (unknown) (no date) (unknown) (unknown) alcohol intake frequency: holidays/special occasions only (units unknown) (unknown) (unknown) (no date) (unknown) (unknown) and Denies orthopnea (units unknown) (unknown) (unknown) (no date) (unknown) (unknown) and Denies uri nary urgency (units unknown) (unknown) (unknown) (no date) (unknown) (unknown) and Denies weakness (units unknown) (unknown) (unknown) (no date) (unknown) (unknown) and below (units unknown) (unknown) (unknown) (no date) (unknown) (unknown) antibiotics as prescribed since the antibiotics could have already started (units unknown) (unknown) (unknown) (no date) (unknown) (unknown) benzonatate 20 0 mg capsule 200 mg PO TID PRN cough #30 caps 11/25/22 (units unknown) (unknown) (unknown) (no date) (unknown) (unknown) benzonatate 20 0 mg capsule (units unknown) (unknown) (unknown) (no date) (unknown) (unknown) came to the ED since her symptoms were not improving. (units unknown) (unknown) (unknown) (no date) (unknown) (unknown) continue to ta ke Tylenol or ibuprofen for fevers, aches and pains. You may also (units unknown) (unknown) (unknown) (no date) (unknown) (unknown) depression, De nies homicidal ideation and Denies suicidal ideation (units unknown) (unknown) (unknown) (no date) (unknown) (unknown) diagnosed with a your infection and started Augmentin on 11/23/2022. Patient (units unknown) (unknown) (unknown) (no date) (unknown) (unknown) diarrhea, Repo rts nausea and Denies vomiting (units unknown) (unknown) (unknown) (no date) (unknown) (unknown) do not exceed 4 doses per 24 hrs (units unknown) (unknown) (unknown) (no date) (unknown) (unknown) during this vi sit. They were seen independently by the [facility]. (units unknown) (unknown) (unknown) (no date) (unknown) (unknown) eletriptan 20 mg tablet (Relpax) 20 mg PO Q2-4H PRN migraine 02/09/22 (units unknown) (unknown) (unknown) (no date) (unknown) (unknown) eletriptan [Re lpax] 20 mg tablet (units unknown) (unknown) (unknown) (no date) (unknown) (unknown) external ear c anals normal (units unknown) (unknown) (unknown) (no date) (unknown) (unknown) falls, Denies lethargy and Denies weakness (units unknown) (unknown) (unknown) (no date) (unknown) (unknown) headache #7 tabs (un its unknown) (unknown) (unknown) (no date) (unknown) (unknown) hydrated. Plea se follow-up with your PCP as soon as possible. Return to the ED (units unknown) (unknown) (unknown) (no date) (unknown) (unknown) hydrocodone 5 mg-acetaminophen 325 1 tab PO Q6H PRN pain #10 tabs 02/09/22 (units unknown) (unknown) (unknown) (no date) (unknown) (unknown) hydrocodone-ac etamin ophen 5-325 mg tablet (units unknown) (unknown) (unknown) (no date) (unknown) (unknown) if you have ch est pain or trouble breathing. (units unknown) (unknown) (unknown) (no date) (unknown) (unknown) lightheadednes s, Denies palpitations, Denies dyspnea, Denies dyspnea on exertion (units unknown) (unknown) (unknown) (no date) (unknown) (unknown) mg tablet (units unknown) (unknown) (unknown) (no date) (unknown) (unknown) nausea. Concer n for otitis media versus upper respiratory infection versus (units unknown) (unknown) (unknown) (no date) (unknown) (unknown) nausea. Patien t denies fever, chills, chest pain, shortness of breath, (units unknown) (unknown) (unknown) (no date) (unknown) (unknown) ondansetron 4 mg disintegrating 4 mg PO Q8H PRN nausea and 11/25/22 (units unknown) (unknown) (unknown) (no date) (unknown) (unknown) ondansetron 4 mg tablet,disintegratin g (units unknown) (unknown) (unknown) (no date) (unknown) (unknown) otalgia, Denie s neck pain, Reports sore throat and Denies throat swelling (units unknown) (unknown) (unknown) (no date) (unknown) (unknown) [facility]. This chart is signed by myself for (units unknown) (unknown) (unknown) (no date) (unknown) (unknown) pharyngitis ve rsus other. Respiratory swab was positive for enterovirus/rhino (units unknown) (unknown) (unknown) (no date) (unknown) (unknown) resolving her infection. Recommend Flonase, Tylenol, ibuprofen, Tessalon (units unknown) (unknown) (unknown) (no date) (unknown) (unknown) respiratory pa cecilia was positive for enterovirus/rhino virus, which is basically (units unknown) (unknown) (unknown) (no date) (unknown) (unknown) return precaut ions discussed with patient. Patient verbalized understanding. (units unknown) (unknown) (unknown) (no date) (unknown) (unknown) symptoms are l ikely due to the URI. Recommend that patient continue her (units unknown) (unknown) (unknown) (no date) (unknown) (unknown) tablet vomitin g #14 tabs (units unknown) (unknown) (unknown) (no date) (unknown) (unknown) take Flonase w hich is [id number] for nasal congestion and ear congestion. (units unknown) (unknown) (unknown) (no date) (unknown) (unknown) that you alrea dy started. You may take Tessalon Perles for the cough. You can (units unknown) (unknown) (unknown) (no date) (unknown) (unknown) the cold virus . It is common for upper respiratory viral infections to run (units unknown) (unknown) (unknown) (no date) (unknown) (unknown) their course f or 1-2 weeks. You may complete the full course of antibiotics (units unknown) (unknown) (unknown) (no date) (unknown) (unknown) upper respirat ory symptoms including ear fullness, ear pain, sore throat, cough, (units unknown) (unknown) (unknown) (no date) (unknown) (unknown) virus. Physica l exam is reassuring, bilateral tympani appear normal on exam. (units unknown) (unknown) (unknown) (no date) (unknown) (unknown) vomiting, abdo lázaro pain, lightheadedness, dizziness, syncope. Patient was (units unknown) (unknown) (unknown) (no date) (unknown) (unknown) wheezing (units unknown) (unknown) Social History date description facility 2022-11-25 00:00 Never smoked tobacco ([facility] Vital Signs date measurement value units 2022-11-25 00:00 BMI 39.4 kg/m2 2022-11-25 00:00 BP_diastolic 50 mmHg 2022-11-25 00:00 BP_systolic 120 mmHg 2022-11-25 00:00 heart_rate 74 /min 2022-11-25 00:00 height_metric 162.56 cm 2022-11-25 00:00 height_standard 64 in 2022-11-25 00:00 o2_saturation 98 % 2022-11-25 00:00 respiration_rate 18 /min 2022-11-25 00:00 temperature_metric 36.5 C 2022-11-25 00:00 temperature_standard 97.7 F 2022-11-25 00:00 weight_metric 104.32 kg 2022-11-25 00:00 weight_standard 229.99 lb
--- NOTE | 2022-12-30 21:06 | ED Physician Documentation ---
PD HPI ABD PAIN - Stated complaint Stated Complaint: ABD PX/NAUSEA - Chief complaint Chief Complaint: Abd Pain - History obtained from History obtained from: Patient - Additional information Additional information: 22-year-old female presents with generalized abdominal pain that started Around 5 AM. She thought it may just be indigestion and tried various different [id number] gas and indigestion medication, it would go down for little bit and then come back and worsen. She feels extremely nauseous but has not vomited, she has not had diarrhea or constipation, no known fever or chills, no chest pain or difficulty breathing. She states she has a history of gallstones but still has her gallbladder, no Other abdominal issues, no abdominal surgeries. She states she ate steak and green beans last night but has not eaten anything today. Review of Systems Constitutional: reports: Reviewed and negative Cardiac: reports: Reviewed and negative Respiratory: reports: Reviewed and negative GI: reports: Abdominal Pain, Nausea. denies: Constipation, Diarrhea, Hematemesis : reports: Reviewed and negative Skin: reports: Reviewed and negative Musculoskeletal: reports: Reviewed and negative Neurologic: reports: Reviewed and negative Psychiatric: reports: Reviewed and negative PD PAST MEDICAL HISTORY - Past Medical History Past Medical History: Yes Cardiovascular: None Respiratory: None Neuro: Other Endocrine/Autoimmune: None GI: GERD Psych: None Musculoskeletal: None - Past Surgical History Past Surgical History: Yes - Present Medications Home Medications: Ambulatory Orders Medication Instructions Recorded Confirmed Amox/Clav 875/125 [Augmentin] 1 each PO Q12H #20 tablet 11/23/22 Buspirone HCl 15 mg PO DAILY 11/23/22 11/23/22 Omeprazole 40 mg PO DAILY #30 cap 12/30/22 Ondansetron Odt [Zofran Odt] 4 mg TL Q6H PRN #10 tablet 12/30/22 - Allergies Allergies/Adverse Reactions: Allergies Allergy/AdvReac Type Severity Reaction Status Date / Time No Known Drug Allergies Allergy Verified 12/30/22 19:58 - Social History Does the pt smoke?: No Smoking Status: Never smoker Does the pt drink ETOH?: No Does the pt have substance abuse?: No - Immunizations Immunizations are current?: Yes - POLST Patient has POLST: No PD ED PE NORMAL - Vitals Vital signs reviewed: Yes - General General: Alert and oriented X 3, No acute distress, Well developed/nourished - HEENT HEENT: Atraumatic, Pharynx benign - Cardiac Cardiac: RRR, No murmur - Respiratory Respiratory: No respiratory distress, Clear bilaterally - Abdomen Abdomen: Normal bowel sounds, Soft, Non distended, Other (Generalized tenderness, right upper quadrant more so than the rest of the abdomen. Bowel tones are active) - Back Back: No CVA TTP, No spinal TTP - Derm Derm: Normal color, Warm and dry, No rash - Extremities Extremities: No deformity, No tenderness to palpate, Normal ROM s pain - Neuro Neuro: Alert and oriented X 3 Eye Opening: Spontaneous Motor: Obeys Commands Verbal: Oriented GCS Score: 15 - Psych Psych: Normal mood, Normal affect Results - Vitals Vitals: Vital Signs - 24 hr 12/30/22 12/30/22 12/30/22 19:53 20:38 22:04 Temperature 36.1 C L Heart Rate 71 75 67 Respiratory 19 18 18 Rate Blood Pressure 158/112 H 153/111 H 153/99 H O2 Saturation 100 100 98 12/30/22 12/30/22 23:32 23:34 Temperature Heart Rate 78 Respiratory 16 Rate Blood Pressure 148/90 H O2 Saturation 96 Oxygen O2 Source Room air - Labs Labs: Laboratory Tests 12/30/22 12/30/22 12/30/22 20:12 20:12 20:12 WBC 15.1 H RBC 5.38 Hgb 15.4 Hct 47.6 H MCV 88.5 MCH 28.6 MCHC 32.4 RDW 13.0 Plt Count 345 MPV 10.2 Neut # (Auto) 12.4 H Lymph # (Auto) 1.9 [place] # (Auto) 0.6 Eos # (Auto) 0.0 Baso # (Auto) 0.1 Absolute Nucleated RBC 0.00 Nucleated RBC % 0.0 Sodium 135 Potassium 3.8 Chloride 102 Carbon Dioxide 25 Anion Gap 8.0 BUN 24 H Creatinine 0.6 Estimated GFR (MDRD) 126 Glucose 114 H Calcium 9.3 Total Bilirubin 0.4 AST 19 ALT 25 Alkaline Phosphatase 66 Total Protein 8.1 Albumin 4.5 Globulin 3.6 Albumin/Globulin Ratio 1.3 Lipase 31 Serum HCG, Qual NEGATIVE Urine Color Urine Clarity Urine pH Ur Specific [place] Urine Protein Urine Glucose (UA) Urine Ketones Urine Occult Blood Urine Nitrite Urine Bilirubin Urine Urobilinogen Ur Leukocyte Esterase Urine RBC Urine WBC Ur Squamous Epith Cells Urine Bacteria Ur Microscopic Review Urine Culture Comments Urine HCG, Qual 12/30/22 12/30/22 22:58 22:58 WBC RBC Hgb Hct MCV MCH MCHC RDW Plt Count MPV Neut # (Auto) Lymph # (Auto) [place] # (Auto) Eos # (Auto) Baso # (Auto) Absolute Nucleated RBC Nucleated RBC % Sodium Potassium Chloride Carbon Dioxide Anion Gap BUN Creatinine Estimated GFR (MDRD) Glucose Calcium Total Bilirubin AST ALT Alkaline Phosphatase Total Protein Albumin Globulin Albumin/Globulin Ratio Lipase Serum HCG, Qual Urine Color YELLOW Urine Clarity CLEAR Urine pH 6.5 Ur Specific [place] 1.015 Urine Protein NEGATIVE Urine Glucose (UA) NEGATIVE Urine Ketones NEGATIVE Urine Occult Blood LARGE H Urine Nitrite NEGATIVE Urine Bilirubin NEGATIVE Urine Urobilinogen 0.2 (NORMAL) Ur Leukocyte Esterase NEGATIVE Urine RBC 0-5 Urine WBC 0-3 Ur Squamous Epith Cells MOD Squamous H Urine Bacteria Rare Ur Microscopic Review INDICATED Urine Culture Comments NOT INDICATED Urine HCG, Qual NEGATIVE - Rads (name of study) No standard instances Relevant Findings:: EMP independent interpretation of test PD Medical Decision Making - ED course Complexity details: reviewed results, re-evaluated patient, considered differential, d/w patient ED course: 22-year-old female presents with nausea and generalized abdominal pain which started earlier today. Pain is in the mid epigastrium rating up into the chest. Patient is well-appearing on physical exam, afebrile, nontoxic and in no acute distress. She is given antibiotic with improvement in her symptoms. Her labs are significant for mild leukocytosis, normal liver function and renal function no UTI. We obtained a CT abdomen pelvis due to concerns for possible cholecystitis versus pancreatitis or other acute abdominal condition versus functional dyspepsia. CT scan shows cholelithiasis without obvious evidence of cholecystitis. She does have a leukocytosis however clinically appears very well. I therefore, With reassuring CT scan, think reasonable to try a clear liquid diet, pain medication as needed, antiemetics and treatment of dyspepsia however I do think the patient will likely need her gallbladder out at some point in the future. She was advised if her pain was worsening, she was not able to tolerate p.o., she developed a fever or other new concerns to return to the ER due to Potential for acute cholecystitis, Otherwise she can follow-up with PCP and surgical clinic to schedule elective cholecystectomy. Departure - Departure Disposition: 01 Home, Self Care Clinical Impression: Functional dyspepsia Cholelithiasis Qualifiers: Cholelithiasis location: gallbladder Cholecystitis presence: without cholecystitis Biliary obstruction: without biliary obstruction Qualified Code(s): K80.20 - Calculus of gallbladder without cholecystitis without obstruction Condition: Good Instructions: ED GERD Prescriptions: Omeprazole 40 mg PO DAILY #30 cap Ondansetron Odt [Zofran Odt] 4 mg TL Q6H PRN #10 tablet PRN Reason: Nausea / Vomiting Comments: I think your symptoms are likely due to to dyspepsia or acid reflux. Do not see any obvious findings on your CT scan but I am awaiting the final report. I recommend that you adhere to a clear liquid diet today and start the acid reducing medicine that I have prescribed. I have also given you a medication for nausea. Avoid high fat and fried foods as these can exacerbate your symptoms. Please follow-up with your primary doctor for this issue in the next week or 2.If you have worsening symptoms, return to the ER. Your medication was sent to [facility] pharmacy Discharge Date/Time: 12/30/22 23:50
[2022-12-30] MEDS ORDERED: iohexoL-300 100 ML VIAL ONE (21:30)
[2022-12-30 21:57] LABS: HCG,QUALITATIVE BLOOD NEGATIVE
[2022-12-30 23:11] LABS: BILIRUBIN,URINE NEGATIVE (NEGATIVE); GLUCOSE, URINE (UA) NEGATIVE (NEGATIVE); KETONES,URINE (UA) NEGATIVE (NEGATIVE); LEUKOCYTE ESTERASE, URINE NEGATIVE (NEGATIVE); NITRITE,URINE NEGATIVE (NEGATIVE); OCCULT BLOOD,URINE LARGE (NEGATIVE); PH,URINE 6.5 PH (5.0-7.5); PROTEIN,URINE NEGATIVE (NEGATIVE); UROBILINOGEN,URINE 0.2 (NORMAL) E.U./dL (NORMAL)
[2022-12-30 23:14] LABS: CLARITY,URINE CLEAR (CLEAR)
[2022-12-30 23:20] LABS: BACTERIA,URINE Rare /HPF (None Seen); RBC,URINE 0-5 /HPF (0-5); SQUAMOUS EPITHELIAL CELL,UR MOD Squamous (<= Few); WBC,URINE 0-3 /HPF (0-5)
[2022-12-30] MEDS ORDERED: FAMOTIDINE 20 MG/2 ML VIAL IVP STA (23:29)
[2022-12-30] MEDS ORDERED: ONDANSETRON 4 MG/2 ML VIAL IVP STA (23:29)
[2022-12-30 23:38] VITALS: BP 148/90
[2022-12-30 23:40] LABS: HCG UR QUAL NEGATIVE
--- NOTE | 2022-12-30 23:42 | CT Report ---
PROCEDURE: ABDOMEN/PELVIS W INDICATIONS: RUQ pain CONTRAST: Omni 300 100ml TECHNIQUE: After the administration of intravenous contrast, 5 mm thick sections acquired from the diaphragms to the symphysis. 5 mm thick coronal and sagittal reformats were acquired. For radiation dose reducti on, the following was used: automated exposure control, adjustment of mA and/or kV according to rufino ent size. COMPARISON: CT abdomen pelvis 03/31/2021 FINDINGS: Image quality: There is metallic streak artifact from patient's right hip surgical hardware. Lung bases:There is mild dependent atelectasis. Heart: Heart is normal in size. ABDOMEN: Liver: No mass lesion. Gallbladder:There are a few calcified gallstones with mild gallbladder distention. No definite gallb ladder wall thickening or pericholecystic fluid. Biliary ducts: No biliary ductal dilatation. Pancreas: Unremarkable. Spleen: Normal in size. Adrenal Glands: No adrenal nodules. Kidneys and Ureters: No hydronephrosis. Stomach and Bowel: Stomach, small bowel loops, and colon are normal in caliber and wall thickness. T he appendix is normal. Peritoneum: No abnormal intraperitoneal fluid. No free air. Ventral Wall: No hernia. Abdominal Nodes: No retroperitoneal or mesenteric adenopathy by size criteria. Vessels: Aorta and inferior vena cava are normal in size. PELVIS: Pelvic Organs:There is a left ovarian cyst measuring up to 2.5 cm.No adnexal masses. Bladder: Unremarkable. Pelvic Nodes: No enlarged lymph nodes. Miscellaneous: No inguinal hernias. Bones: Visualized osseous structures demonstrate no suspicious lesions. IMPRESSION: 1. Cholelithiasis without definite CT evidence of acute cholecystitis. If clinical concern persists, further evaluation may obtained with ultrasound. Reviewed by: Madan Wong MD on 12/30/2022 11:40 PM PDT Approved by: Madan Wong MD on 12/30/2022 11:40 PM PDT Station ID: [id number]
[2022-12-31] MEDS ORDERED: iohexoL-300 100 ML VIAL IVP ONE (02:26)
== END 2022-12-30 23:50 | disposition home or self-care (01) ==
LOC: ED 19:40
DX: K80.20 Calculus of gallbladder without cholecystitis without obstruction (principal); K30 Functional dyspepsia
CPT/HCPCS: 36415; 74177; 80053; 81001; 81025; 83690; 84703; 85025; 96374; 99284; Q9967; 81003; 87086

== ENCOUNTER 2023-02-16 01:35 | Emergency (ER) | payer SELFPAY ==
[2023-02-16 01:55] LABS: BILIRUBIN,URINE NEGATIVE (NEGATIVE); GLUCOSE, URINE (UA) NEGATIVE (NEGATIVE); KETONES,URINE (UA) NEGATIVE (NEGATIVE); LEUKOCYTE ESTERASE, URINE NEGATIVE (NEGATIVE); NITRITE,URINE NEGATIVE (NEGATIVE); OCCULT BLOOD,URINE SMALL (NEGATIVE); PROTEIN,URINE TRACE mg/dL (NEGATIVE); UROBILINOGEN,URINE 1 (NORMAL) E.U./dL (NORMAL)
[2023-02-16 01:58] LABS: CLARITY,URINE HAZY (CLEAR); HCG UR QUAL NEGATIVE
[2023-02-16 02:02] LABS: BACTERIA,URINE Many /HPF (None Seen); SQUAMOUS EPITHELIAL CELL,UR FEW Squamous (<= Few)
--- OUTSIDE RECORDS SUMMARY | 2023-02-16 02:11 | EXTERNAL MEDICAL SUMMARY RPT | Continuity of Care Document ---
Author Name Unknown Address [address] [place] [address] Phone Organization [facility] Address [address] [place] [address] Phone Care Team Providers Care Healthcare Recruiter Name Role Phone Patricia Johnson Unavailable Unavailable Allergies and Intolerances date description facility reaction severity (no date) No Known Drug Allergies [facility] (no otto ction) (no severity) Medications date description facility 2022-11-25 00:[address] [facility] 2022-11-25 00:[address] [facility] Problems date description facility 2022-11-25 00:00 Upper respiratory tract infecti [facility] Results/Labs test date facility value unit notes Social History date description facility 2022-11-25 00:00 Never smoked tobacco (finding) [facility] Vital Signs date measurement value units 2022-11-25 [...]
--- NOTE | 2023-02-16 03:01 | ED Physician Documentation ---
PD HPI FEMALE - Stated complaint Stated Complaint: FEMALE - Chief complaint Chief Complaint: UTI - History obtained from History obtained from: Patient - Additional information Additional information: HPI from patient. Patient c/o 2-3 days of burning dysuria, sensation of incomplete voiding, urinary urgency. Denies fever, back pain. Denies chances of Review of Systems Constitutional: denies: Fever : reports: Dysuria, Frequency. denies: Now EGA PD PAST MEDICAL HISTORY - Past Medical History Past Medical History: Yes Cardiovascular: None Respiratory: None Neuro: Other Endocrine/Autoimmune: None GI: GERD Psych: Anxiety Musculoskeletal: None - Past Surgical History Past Surgical History: Yes - Present Medications Home Medications: Ambulatory Orders Medication Instructions Recorded Confirmed Nitrofurantoin [Macrobid] 100 mg PO BID #9 cap 02/16/23 Phenazopyridine HCl [Pyridium] 200 mg PO TID PRN #6 tablet 02/16/23 - Allergies Allergies/Adverse Reactions: Allergies Allergy/AdvReac Type Severity Reaction Status Date / Time No Known Drug Allergies Allergy Verified 02/16/23 01:43 - Social History Does the pt smoke?: No Smoking Status: Never smoker Does the pt drink ETOH?: No Does the pt have substance abuse?: No - Immunizations Immunizations are current?: Yes - POLST Patient has POLST: No PD ED PE NORMAL - Vitals Vital signs reviewed: Yes - General General: Alert and oriented X 3, No acute distress, Well developed/nourished - Abdomen Abdomen: Soft, Non tender - Back Back: No CVA TTP Results - Vitals Vitals: Oxygen O2 Source Room air - Labs Labs: Laboratory Tests 02/16/23 01:46 Urine Color YELLOW Urine Clarity HAZY Urine pH 7.0 Ur Specific [employer] [place] 1.020 Urine Protein TRACE Urine Glucose (UA) NEGATIVE Urine Ketones NEGATIVE Urine Occult Blood SMALL H Urine Nitrite NEGATIVE Urine Bilirubin NEGATIVE Urine Urobilinogen 1 (NORMAL) Ur Leukocyte Esterase NEGATIVE Urine RBC 6-10 H Urine WBC 4-5 Ur Squamous Epith Cells FEW Squamous Urine Bacteria Many H Ur Microscopic Review INDICATED Urine Culture Comments NOT INDICATED Urine HCG, Qual NEGATIVE PD Medical Decision Making - ED course Complexity details: considered differential, d/w patient ED course: symptoms c/w UTI. UA with many bacteria , few squamous cells, 4-5 wbc/hpf. While this is not strongly s/o UTI, combined with symptoms, will treat for UTI. Given macrobid 100mg PO in ED and pyridium, rx e-prescribed for same. Results d/w patient, return precautions reviewed Departure - Departure Disposition: 01 Home, Self Care Clinical Impression: Urinary tract infection Qualifiers: Urinary tract infection type: acute cystitis Hematuria presence: without hematuria Qualified Code(s): N30.00 - Acute cystitis without hematuria Condition: Good Instructions: ED UTI Cystitis Female Prescriptions: Nitrofurantoin [Macrobid] 100 mg PO BID #9 cap Phenazopyridine HCl [Pyridium] 200 mg PO TID PRN #6 tablet PRN Reason: dysuria Comments: You are given the first dose of an antibiotic (Macrobid) in the emergency department, as well as a dose of Pyridium (medication that can help alleviate the symptoms of urinary tract infection). I have electronically submitted prescriptions for both these medications to the [facility] pharmacy in [place]. Discharge Date/Time: 02/16/23 03:50
[2023-02-16] MEDS ORDERED: NITROFURANTOIN MACRO 100 MG CAPSULE PO STA (03:38)
[2023-02-16] MEDS ORDERED: PHENAZOPYRIDINE 100 MG TABLET PO STA (03:38)
[2023-02-16 04:03] VITALS: BP 123/63; O2SAT 100
== END 2023-02-16 03:50 | disposition home or self-care (01) ==
LOC: ED 01:35
DX: N30.00 Acute cystitis without hematuria (principal)
CPT/HCPCS: 81001; 81025; 99283; A9270; 81003; 87086

== ENCOUNTER 2023-09-10 08:00 | Outpatient (CLI) | payer OTHER ==
[2023-09-10 17:11] LABS: BILIRUBIN,URINE NEGATIVE (NEGATIVE); GLUCOSE, URINE (UA) NEGATIVE (NEGATIVE); KETONES,URINE (UA) 15 mg/dL (NEGATIVE); LEUKOCYTE ESTERASE, URINE NEGATIVE (NEGATIVE); NITRITE,URINE NEGATIVE (NEGATIVE); OCCULT BLOOD,URINE NEGATIVE (NEGATIVE); PH,URINE 7.5 PH (5.0-7.5); PROTEIN,URINE NEGATIVE (NEGATIVE); UROBILINOGEN,URINE 0.2 (NORMAL) E.U./dL (NORMAL)
[2023-09-10 17:14] LABS: CLARITY,URINE CLEAR (CLEAR)
[2023-09-10 17:36] LABS: RBC,URINE None Seen /HPF (0-5); WBC,URINE 0-3 /HPF (0-5)
[2023-09-10 17:37] LABS: BACTERIA,URINE None Seen /HPF (None Seen); SQUAMOUS EPITHELIAL CELL,UR FEW Squamous (<= Few)
== END 2023-09-10 23:59 | disposition home or self-care (01) ==
LOC: LAB.WC 08:00
PROVIDERS: ATTEND Nurse Practitioner
DX: Z34.90 Encounter for supervision of normal pregnancy, unspecified, unspecified trimester (principal)
CPT/HCPCS: 81001; 87086

== ENCOUNTER 2023-09-21 16:40 | Outpatient (CLI) | payer MEDICAID ==
--- NOTE | 2023-09-22 14:52 | Ultrasound Report ---
PROCEDURE: OB 1st Trimester INDICATIONS: POSITIVE TEST OUTSIDE/PRIOR DATING DATA: Last menstrual period (LMP): 07/24/2023. LMP-based estimated date of delivery (MATT): 04/29/2024. First dating scan (date and location): 09/21/2023. Estimated date of delivery (MATT) from first dating scan: 04/29/2024. TECHNIQUE: Real-time scanning was performed of the fetus and maternal pelvic organs, with image documentation. COMPARISON: None. FINDINGS: Intrauterine gestational sac present. Embryo: Single living intrauterine gestation with estimated sonographic gestational age of approxima tely 8 weeks and 3 days based off crown-rump length measurement of approximately 1.94 cm. Heart rate: 178 bpm. Other: No perigestational fluid collection. Measurement variability in dating: +/- 4 weeks by LMP, +/- 7 days by mean sac diameter (use before 6 weeks gestation if crown-rump length not able to be measured), +/- 5 days by crown-rump length (6-12 weeks gestation). Maternal organs: Ovaries appear unremarkable with right breast noted. IMPRESSION: Single living intrauterine gestation with estimated sonographic gestational age of approximately 8 we eks and 3 days estimated date of delivery of approximately 04/29/2024. Reviewed by: Rc Hirsch MD on 09/22/2023 1:51 PM ALISHA Approved by: Rc Hirsch MD on 09/22/2023 1:51 PM ALISHA Station ID: [id number]
== END 2023-09-21 16:41 | disposition home or self-care (01) ==
LOC: DI 16:40
PROVIDERS: ATTEND Nurse Practitioner
DX: Z34.91 Encounter for supervision of normal pregnancy, unspecified, first trimester (principal)

== ENCOUNTER 2023-10-02 08:00 | Outpatient (CLI) | payer MEDICAID ==
[2023-10-02 22:24] LABS: NEISSERIA GONORRHOEAE DNA NEGATIVE (NEGATIVE); TRICHOMONAS VAGINALIS DNA NEGATIVE (NEGATIVE)
[2023-10-02 22:44] LABS: CHLAMYDIA TRACHOMATIS DNA POSITIVE (NEGATIVE)
== END 2023-10-02 23:59 | disposition home or self-care (01) ==
LOC: LAB.WC 08:00
PROVIDERS: ATTEND Nurse Practitioner
DX: Z11.3 Encounter for screening for infections with a predominantly sexual mode of transmission (principal)
CPT/HCPCS: 87491; 87591; 87661